=== PATIENT | female | born 1945 | race Caucasian/White ===

== ENCOUNTER 2023-12-26 19:25 | Inpatient (IN) | payer MEDICARE, OTHER, SELFPAY ==
[2023-12-26] VITALS (10 sets, daily range): BP systolic 127–152; BP diastolic 50–68; BMI 42.6
[2023-12-26 15:17] LABS: % Basophils 0.1 % (0-2); % Immature Granulocytes 0.7 % (0-0.5); % Lymphocytes 3.6 % (20.5-51.1); % Monocytes 4.8 % (1.7-9.3); % Neutrophils 90.8 % (42.2-75.2); Absolute Immature Granulocytes 0.1 10^3/uL (0-0.05); Absolute Lymphocytes 0.5 10^3/uL (1.2-3.4); Absolute Monocytes 0.7 10^3/uL (0.1-0.6); Absolute Neutrophils 12.4 10^3/uL (1.4-6.5); Hemoglobin 10.7 g/dL (12.0-16.0); Mean Corp Hgb Conc. 31.5 g/dL (33.0-37.0); Mean Corpuscular Volume 82.5 fL (81.0-99.0); Nucleated Red Blood Cells % 0.1 %; Platelet Count 365 10^3/uL (130-400); Red Blood Cell Count 4.12 10^6/uL (4.20-5.40); Red Cell Dist. Width 15.8 % (11.5-14.5); White Blood Cell Count 13.7 10^3/uL (4.8-10.8)
[2023-12-26 15:34] LABS: ALT (SGPT) 39 U/L (0-35); AST (SGOT) 33 U/L (14-36); Albumin 4.4 g/dl (3.5-5.0); Alkaline Phosphatase 126 U/L (38-126); Blood Urea Nitrogen 81 mg/dl (7-17); Calcium 9.5 mg/dl (8.4-10.2); Carbon Dioxide 31 mmol/L (22-30); Chloride 91 mmol/L (98-107); Estimated Creatinine Clearance 22 ml/min; Glucose 360 mg/dl (70-99); Potassium 5.8 mmol/L (3.5-5.1); Sodium 129 mmol/L (135-145); Total Bilirubin 0.6 mg/dl (0.2-1.3); Total Protein 6.7 g/dl (6.3-8.2); eGFR 22.11
[2023-12-26] MEDS: NOVOLIN R 10 UNITS IV (16:54)
[2023-12-26] MEDS: LOKELMA 10 GRAM PO (16:57)
[2023-12-26] MEDS: DEXTROSE 50% SYRINGE 25 GRAMS IV (16:58)
[2023-12-26] MEDS: LASIX 40 MG IV (17:01)
[2023-12-26] MEDS: VENTOLIN NEBULES 2.5 MG INH (17:19)
[2023-12-26 17:31] LABS: Urine Albumin Negative (Neg - Trace); Urine Bilirubin Negative (Negative); Urine Character Clear (Clear); Urine Color Yellow; Urine Glucose 1+ (Negative); Urine Ketone Negative (Negative); Urine Leukocyte Negative (Negative); Urine Nitrite Negative (Negative); Urine Occult Blood Negative (Negative); Urine Specific Gravity 1.015 (<1.030); Urine Urobilinogen Negative (Neg - 1+)
[2023-12-26 17:51] LABS: Troponin I 0.028 ng/ml
--- NOTE | 2023-12-26 18:09 | ED.GENMED ---
History of Present Illness
General
Chief Complaint: Abnormal Lab Value
Source: patient, ambulance crew and [facility]
Exam Limitations: none
Time Seen by Provider: 12/26/23 15:02
Nursing documentation reviewed up to this point in time: agreed with
Travel History
Have you had any contact with someone who has COVID-19?: No
Do you have any symptoms of coronavirus? Fever > 100 degrees, chills, cough, shortness of breath, sore throat, loss of taste or smell, muscle aches, or headache?: No
History of Present Illness
History of Present Illness:
78-year-old female presenting from [facility] with past medical history of dementia stroke CHF CAD hypertension renal disease presenting to the emergency department today with concerns of abnormal labs as an outpatient. She was
found to have a potassium of 6.2 BNP of 10,000 and creatinine level of 2.2. Sugar level additionally elevated with sodium level 130. She claims that she is felt very fatigued and tired but denies any specific chest pain nausea vomiting diarrhea
numbness or weakness. Denies any pain.
Past History
Past History
ED Past Medical History: CAD, CHF, CVA, HTN, Hypercholesterolemia, IDDM, Psychiatric (Anxiety, depression) and Other (Dementia, Covid 15 Apr 2020, intellectual disability)
ED Past Surgical History: Cardiac
Social History
Tobacco: Non-smoker
Alcohol: None
Drug: None
Living: [facility]
Employment: Retired
Family History
Family History: Other (Reviewed and Noncontributory)
Review of Systems
Review of Systems
Allergies reviewed?: Yes
All Other Systems: ROS reviewed and negative except as documented in HPI and ROS
Phy Exam
Physical Exam
Physical Exam:
GENERAL: Alert , in no apparent distress
EYE: pupils equal and reactive
NECK: Supple, no significant adenopathy.
ENT: o/p clr, mmm.
CARDIAC: Regular rate and rhythm .
LUNGS: Clear breath sounds bilaterally, no acute respiratory distress, no wheezes/rales/rhonchi
ABDOMEN: Soft, without focal tenderness, no r/g, no cvat
NEUROLOGICAL: Alert and oriented, no focal neuro deficits
SKIN: Warm and dry, skin intact.
MUSCULOSKELETAL: No edema, well perfused.
PSYCH: Normal and appropriate interaction.
Course
Orders/Labs/Results
Orders:
Orders
12/26/23 14:51
Complete Blood Count/With Diff Urgent
Comprehensive Metabolic Panel Urgent
Magnesium Urgent
Comment: ADD ON
12/26/23 15:34
EKG [Electrocardiogram (*1)] Urgent
Reason for Study: Fatigue / Weakness
EKG- Treatment ONCE
12/26/23 16:02
Add On- LAB Urgent
Tests Added?: Magnesium
12/26/23 16:35
Chest X-ray Portable [CR Chest Portable - 1 View] Urgent
Comment:
Reason For Exam: sob
Reason Study Needs to be Portable: Patient Unstable
12/26/23 16:39
Albuterol Nebs [Ventolin Nebules] 2.5 mg INH R NOW STA
Dextrose 50%-Water [Dextrose 50% Syringe] 25 grams IV NOW STA
Insulin Human Regular [Novolin R] 10 units IV NOW STA
Sodium Zirconium Cyclosilicate [Lokelma] 10 gram PO NOW STA
Peak Flow Rate [RESP] Urgent
Quantity: 1
Pre-Bronchodilator: Yes
Post Bronchodilator: Yes
Special Instructions: Pre and Post Peak Flow before and after Bronchodilator
12/26/23 16:41
Furosemide [Lasix] 40 mg IV NOW STA
12/26/23 17:18
Troponin I Urgent
Urinalysis Reflex To Culture Urgent
Date Specimen was Collected: 12/26/23
Time Specimen was Collected: 16:46
Comment: straight cath
12/26/23 18:12
Bedside Glucose- Treatment ONCE
12/26/23 18:38
COVID-19 Antigen Urgent
Source: Nasal Swab
Influenza A+B Rapid Molecular Urgent
INES Source: Nasal Swab
Specimen Description:
12/26/23 18:48
Add On- LAB Urgent
Tests Added?: tsh with free t4
Consult Nephrology [NEPHROLOGY CONSULT] Routine
Consulting Provider: Christopher Levi
Was physician already notified: Yes
Reason for consult: acute on chronic chf clint ckd 4
12/26/23 21:00
BMP [Basic Metabolic Panel] Urgent
12/26/23 22:00
BMP [Basic Metabolic Panel] Urgent
12/27/23 08:00
Furosemide [Lasix] 80 mg IV BID AT 0800,1600
Abnormal Lab Results
12/26/23 12/26/23 12/26/23
14:51 17:18 18:20
WBC 13.7 H 10^3/uL
(4.8-10.8)
RBC 4.12 L 10^6/uL
(4.20-5.40)
Hgb 10.7 L g/dL
(12.0-16.0)
Hct 34.0 L %
(37.0-47.0)
MCH 26.0 L pg
(27.0-31.0)
MCHC 31.5 L g/dL
(33.0-37.0)
RDW 15.8 H %
(11.5-14.5)
MPV 11.0 H fL
(7.4-10.4)
Abs Immat Gran (auto) 0.1 H 10^3/uL
(0-0.05)
Absolute Neuts (auto) 12.4 H 10^3/uL
(1.4-6.5)
Absolute Lymphs (auto) 0.5 L 10^3/uL
(1.2-3.4)
Absolute Monos (auto) 0.7 H 10^3/uL
(0.1-0.6)
Immature Gran % 0.7 H %
(0-0.5)
Neutrophils % 90.8 H %
(42.2-75.2)
Lymphocytes % 3.6 L %
(20.5-51.1)
Sodium 129 L mmol/L
(135-145)
Potassium 5.8 H mmol/L
(3.5-5.1)
Chloride 91 L mmol/L
(98-107)
Carbon Dioxide 31 H mmol/L
(22-30)
BUN 81 H mg/dl
(7-17)
Creatinine 2.2 H mg/dL
(0.6-1.0)
Glucose 360 H mg/dl
(70-99)
ALT 39 H U/L
(0-35)
Urine Glucose 1+ A
(Negative)
POC Glucose 333 H mg/dl
(70-99)
12/26/23 14:51
Vital Signs
Initial and Last Documented VS:
Initial Vital Signs
BP
152/62
12/26/23 14:21
Last Documented Vital Signs
Temp Pulse Resp BP Pulse Ox
98.0 F 72 27 143/68 97
12/26/23 14:28 12/26/23 18:45 12/26/23 18:45 12/26/23 18:00 12/26/23 18:45
MDM/Problems Addressed
MDM/Problems Addressed:
78-year-old female presenting to the emergency department today with concerns of abnormal labs as an outpatient. These were performed because she was feeling very tired and weak. She was found to have elevated potassium of 6.2 BNP of 10,000
creatinine 2.2 all above her baseline. Arrival here she claims that she feels continually fatigued is a fully alert and oriented. She claims that she would like full treatment for these ailments though she does have a POLST that has comfort
measures listed. This was explained to the patient she claims that she would like full treatment of the described findings. Vital signs normal throughout ER stay. Was initially given temporizing medications due to the initial potassium level of
6.2 repeated level was 5.8 did have Lasix on board as well as Lokelma. Will be admitted for further monitoring and treatment.
*Critical Care Note
Total Time (30-74mins, 75-104mins- exclusive of procedures): Not Applicable
ED Attending Note
-
Portions of this chart may have been created with voice recognition software.� Occasional wrong word or��sound alike� substitutions may have occurred due to the inherent limitations of voice recognition software.
Discharge Plan
Departure
Patient Disposition: Admit
Date of Disposition: 12/26/23
Time of Disposition: 18:52
Admit to: Med/Surg
Admit to doctor: Colten
Presentation/result/management discussed w/ accepting MD/DO: Hospitalist
Patient with high blood pressure during this ER visit?: No
Condition: Good
Covid-19: Not Applicable
Discharge Problem:
Acute hyperkalemia, Heart failure, Acute hyperglycemia, Fatigue
Prescriptions:
No Action
Artificial Tears (PF) 1 EACH dropperette
1 drp BOTH EYES Q8HPRN PRN (Reason: dry eyes)
lidocaine 4 % Adhesive Patch,Medicated
1 patch TOPICAL DAILY
Rx Instructions:
apply to lower back
magnesium hydroxide [Milk of Magnesia] 400 mg/5 mL Suspension
30 ml PO HSPRN PRN (Reason: if no bm x 2 days)
bisacodyl [Dulcolax (bisacodyl)] 10 mg Suppository
10 mg MO [id number] PRN (Reason: if no bm by 3rd day)
Fleet Enema 19-7 gram/118 mL Enema
118 ml MO DAILYPRN PRN (Reason: if no bm x 4 days)
insulin lispro [Humalog KwikPen Insulin] 100 unit/mL Insulin Pen
8 sliding scale dose SC AC
Patient Comments:
BG 150-199 = 0; 200-249= 2; 250-299= 4; 300-349= 6; 350-400= 8; >400 call MD
insulin glargine [Lantus Solostar U-100 Insulin] 100 unit/mL (3 mL) Insulin Pen
30 unit SC HS
clonazepam 0.5 MG tablet
0.5 mg PO BID
atorvastatin 40 mg Tablet
40 mg PO HS
sennosides [senna] 8.6 mg Tablet
8.6 mg PO BID
aspirin 81 mg Tablet,Delayed Release (Dr/Ec)
81 mg PO DAILY
amlodipine 10 mg Tablet
10 mg PO DAILY
docusate sodium 100 mg Capsule
100 mg PO BID
sertraline 25 mg Tablet
25 mg PO DAILY
cholecalciferol (vitamin D3) [Vitamin D3] 25 mcg (1,000 unit) Tablet
25 mcg PO DAILY
dextromethorphan-guaifenesin 10-100 mg/5 mL syrup
10 ml PO Q4HPRN PRN (Reason: cough)
famotidine [Acid Controller] 20 MG tablet
20 mg PO HS
acetaminophen [Tylenol] 325 MG capsule
650 mg PO Q6HPRN PRN (Reason: mild pain/fever >100)
menthol Gel
1 applic TOPICAL HS
allopurinol 300 MG tablet
300 mg PO DAILY
potassium chloride 20 mEq Tablet,Er Particles/Crystals
20 meq PO BID Qty: 60 0RF
amoxicillin-pot clavulanate [Augmentin] 500-125 mg tablet
1 tab PO BID Qty: 5 0RF
Patient Comments:
patient to take from 12/23/23-12/28/23
prednisone 20 mg Tablet
20 mg PO BID
Rx Instructions:
for 10 days from 12/23/23-01/02/24
Metamucil Packet
1 packet PO DAILY
furosemide 80 mg tablet
120 mg PO BID@0800,1600
Referrals:
Samir River MD [Family Provider] -
Interventions
Interventions:
*Risk Screen - Suicide Last Done: 12/26/23 14:28
*General Assessment Last Done: 12/26/23 14:28
*Neglect/Abuse Screening Last Done: 12/26/23 14:28
ED- Fall Risk Assessment Last Done: 12/26/23 14:38
*ED COVID-19 Vaccine History Last Done: 12/26/23 14:28
[2023-12-26 18:22] LABS: Glucose - Point of Care 333 mg/dl (70-99)
--- NOTE | 2023-12-26 18:25 | W.PN.UPDATE ---
Update Note
Progress Note Update
Patient seen and examined at bedside, please see SADDLE [facility]KER/PA H&P for further details. This note serves as addendum
78-year-old female with history of recurrent hospital admissions for acute hypoxic respiratory failure, recent hospitalization for pneumonia, most likely aspiration requiring PEG tube at that time, dementia, stroke, CHF, CAD, hypertension, renal
disease, now presents from [facility] with concerns of abnormal labs as outpatient. Patient had felt she was very weak, fatigued and therefore labs were performed. Found to have potassium of 6.2, BNP of 10,000, creatinine of 2.2.
Noted to have leukocytosis here 13.7, sodium 129 baseline approximately 130s), bicarb 31, creatinine 2.2 (1.5-1.7 in the past), hyperglycemic, UA negative. X-ray positive for moderate positional pulmonary edema. 93% on 2 L. Provided Lokelma, IV
Lasix in the ED.
#AMADO
# Most likely cardiorenal
� 80 mg IV Lasix twice daily
� Renal consulted
� Follow-up bladder scan for retention
� Monitor urine output
�Patient would like medical treatment options at this time, does have a POLST that has comfort measures listed
#Hyperkalemia
� Most likely secondary to AMADO
� Lokelma given
� No EKG changes
� Continue monitoring with IV diuresis
� BMP this evening at approximately 10 PM and treat accordingly
# Acute on chronic� hypoxic respiratory failure likely from acute on chronic HFpEF
� Switch to 80 mg IV Lasix twice daily
� Nephrology consulted
-Wean as tolerated
�Follow-up COVID
-Strict I&O
-Daily weight
-Fluid restriction
-Cardiology consulted
�Trend troponins
# Anemia of chronic disease
-No active bleeding
-Continue to monitor
# Severe symptomatic bradycardia
-EKG with impression of SINUS RHYTHM WITH 2ND DEGREE A-V BLOCK WITH 2:1 A-V CONDUCTION
�Dual-chamber pacemaker implantation 11/15
#CAD s/p prior CABG
-aspirin, statin continued
#Essential hypertension
-continue Norvasc, Lasix, avoid hypotension
�Hold all nephrotoxic agents
#Diabetes mellitus type 2 on insulin
-Continue home regimen
-sliding scale
-CHO diet
#HLD
-statin continued
#anxiety
-clonazepam continued
-Sertraline
#GOUT
-allopurinol, colchicine continued
#GERD
_PPI continued
#History of CVA in the past and dysphagia
-peg tube removed
- She is on a pur�ed ,and thin liquid diet at snf
# DVT prophylaxis
-Heparin subcu
# CODE STATUS
-Full code
--- NOTE | 2023-12-26 18:27 | HPS.HSE ---
Addendum entered and electronically signed by Richie Sabillon MD 12/26/23 18:48:
see previous update note
Original Note:
Family Physician
-
Family Physician: Samir River MD
Chief Complaint
-
Shortness of breath, cough, diarrhea
History of Present Illness
78-year-old female from [facility] complaining of shortness of breath, cough white to yellow in color and diarrhea today. She states she has been on 2 L of nasal cannula since going home from hospital on . She denies
fever, chills, chest pain, palpitations, abdominal pain, nausea, vomiting, urinary symptoms.
The patient was treated for heart failure exacerbation, heart block along with aspiration pneumonia November 15 - November 22, 2023 had permanent pacemaker placed had speech therapist recommendation of dysphagia grade 1 diet pur�ed patient did
receive a permanent pacemaker on November [address] Shah. She is past medical history of dementia�mild, DM2, HTN, HLD, CAD/CABG, heart block status post permanent pacemaker November 15, 2023, chronic heart failure preserved EF, CKD 3B�4,
dysphagia/aspiration PNA, CVA 2008, gout, GERD, anxiety
Medical History
Past Medical History
Past Medical History: Reports Other
Additional Past Medical History:
CAD
CHF
CVA (2008),
GERD,
HTN,
Hypercholesterolemia,
IDDM,
Renal Failure (CKD 3)
Anxiety/depression
Obesity
Aspiration PNA October 2023 recommended pur�ed diet
Past Surgical History: Reports Other
Additional Past Surgical History:
Pacemaker November 15, 2023 secondary to heart block
CABG
Social History
Tobacco: Non-smoker
Alcohol: None
Drug: None
Personal: Single
Living: Snf
Family History
Family History: Not pertinent
Allergies / Home Medications
Allergies reflects when Allergies were last updated in [facility].
Home Medications with original date entered in [facility]
Allergy/Medication List:
Allergies
Allergy/AdvReac Type Severity Reaction Status Date / Time
adhesive Allergy BANDAIDS-REDNESS Verified 12/26/23 14:38
AND RASH
hydromorphone [From Dilaudid] Allergy CONFUSION Verified 12/26/23 14:38
Home Medications
dextran 70-hypromellose eye drops in a dropperette (Artificial Tears (PF) drops in a dropperette) 1 drp BOTH EYES Q8HPRN PRN dry eyes 08/16/21
lidocaine 4 % topical patch 1 patch topical DAILY lower back Pain 08/26/23
bisacodyl 10 mg rectal suppository (Dulcolax (bisacodyl)) 10 mg MN [id number] PRN if no bm by 3rd day 09/09/23
clonazepam 0.5 mg tablet 0.5 mg PO BID Mental Health/Anxiety 09/09/23
insulin glargine 100 unit/mL (3 mL) subcutaneous pen (Lantus Solostar U-100 Insulin) 30 unit SC HS Diabetes 09/09/23
insulin lispro 100 unit/mL subcutaneous pen (Humalog KwikPen (U-100) Insulin) 8 sliding scale dose SC AC Diabetes 09/09/23
magnesium hydroxide 400 mg/5 mL oral suspension (Milk of Magnesia) 30 ml PO HSPRN PRN if no bm x 2 days 09/09/23
sodium phosphates 19 gram-7 gram/118 mL enema (Fleet Enema) 118 ml MN DAILYPRN PRN if no bm x 4 days 09/09/23
acetaminophen 325 mg capsule (Tylenol) 650 mg PO Q6HPRN PRN mild pain/fever >100 10/12/23
amlodipine 10 mg tablet 10 mg PO DAILY Blood Pressure 10/12/23
aspirin 81 mg tablet,delayed release 81 mg PO DAILY Blood Clot Prevention/Tx 10/12/23
atorvastatin 40 mg tablet 40 mg PO HS High Cholesterol 10/12/23
cholecalciferol (vitamin D3) 25 mcg (1,000 unit) tablet (Vitamin D3) 25 mcg PO DAILY Supplement 10/12/23
dextromethorphan-guaifenesin 10 mg-100 mg/5 mL oral syrup 10 ml PO Q4HPRN PRN cough 10/12/23
docusate sodium 100 mg capsule 100 mg PO BID Constipation 10/12/23
famotidine 20 mg tablet (Acid Controller) 20 mg PO HS Gastrointestinal Issue 10/12/23
sennosides 8.6 mg tablet (senna) 8.6 mg PO BID Constipation 10/12/23
sertraline 25 mg tablet 25 mg PO DAILY Mental Health/Anxiety 10/12/23
allopurinol 300 mg tablet 300 mg PO DAILY Gout 11/15/23
menthol 1 applic topical HS bilateral shoulder pain 11/15/23
amoxicillin 500 mg-potassium clavulanate 125 mg tablet (Augmentin) 1 tab PO BID #5 tabs 11/22/23
potassium chloride 20 mEq tablet,extended release(part/cryst) 20 meq PO BID #60 tabs 11/22/23
furosemide 80 mg tablet 120 mg PO BID@0800,1600 12/26/23
prednisone 20 mg tablet 20 mg PO BID 12/26/23
psyllium 1 packet PO DAILY 12/26/23
Review of Systems
-
History Source: Patient
A 12 point ROS was completed and negative except as noted: Yes
Constitutional: Reports Weight Gain (26 pounds in 1 month); Denies Fever or Chills
EENT: Denies Sore Throat or Runny Nose
Respiratory: Reports Cough and Trouble Breathing (Shortness of breath)
Cardiac: Denies Chest Pain, Diaphoresis, Palpitations or Syncope
Abdomen/GI: Reports Diarrhea; Denies Abdominal Pain, Nausea, Vomiting, Constipated or Bloody Stools
: Denies Dysuria, Frequency, Flank Pain or Incontinence
Musculoskeletal: Reports Edema (+2 nonpitting); Denies Joint Pain
Skin: Denies Itching or Rash
Neurological: Denies Dizzy, Headache or Weakness
Hematologic/Lymphatic: Reports No Symptoms
Psych: Reports Calm
Physical Exam
Vital Signs
Vital Signs
Temp Pulse Resp BP Pulse Ox
98.0 F 67 25 128/50 93
12/26/23 14:28 12/26/23 17:01 12/26/23 15:00 12/26/23 17:01 12/26/23 15:00
Physical Exam
General: Comfortable, Conversant and Obese; No Pain or Chills
HEENT: NormoCephalic, Anicteric, Moist mucous membranes, PERRLA, [place] Conjunctivae, No Ptosis and Oxygen (2 L NC)
Respiratory: Wheezes (With poor inspiratory effort); No Rales or Rhonchi
Cardiac: S1/S2, Regular Rhythm, Peripheral Edema (Chronic +2 nonpitting) and JVD; No Murmur, Rub or Gallop
Breast: Deferred by me
GI: Soft, Non Tender, Non Distended, Normal Bowel Sounds and No Hepatosplenomegaly
Rectal: Deferred by Provider
Genito-urinary: Deferred by me
Musculoskeletal: No Clubbing, No Cyanosis, Edema, Left Lower Extremity (+2 nonpitting) and Edema, Right Lower Extremity (+2 nonpitting); No Edema, Left Upper Extremity or Edema, Right Upper Extremity
Skin: Warm and Dry; No Rash
Neuro: AO x 3 (To name, place, place of living, year, recent history), Nonfocal/grossly intact, Cranial Nerves Intact and No Sensory Deficits; No Slurred Speech, Facial Droop or Tremors
Psych: Calm
Laboratory Results
-
12/26/23 14:51
12/26/23 14:51
Laboratory Results
Total Bilirubin 0.6 mg/dl (0.2-1.3) 12/26/23 14:51
AST 33 U/L (14-36) 12/26/23 14:51
ALT 39 U/L (0-35) H 12/26/23 14:51
Alkaline Phosphatase 126 U/L (38-126) 12/26/23 14:51
Troponin I 0.028 ng/ml 12/26/23 17:18
Impression/Plan
-
Impression/plan:
Inpatient telemetry
#Acute hypoxic resp insufficiency 2/2 acute on chronic CHF preserved EF
#Chronic hypoxic respiratory insufficiency on chronic 2 L nasal cannula
WT 102.2 kg > 89.2kg 11/22/2023 =13kg/28.6lbs 1 month
BNP 10,500
I/O, daily weights
ETL MANAGER 120 mg Lasix twice daily
Iv Lasix 80 mg bid
- consult Cardiology
2D echo 08/29/2023: EF 60 to 65%, normal LVS LVSF, no wall normality, stage II diastolic dysfunction. Moderate mitral stenosis. Mild to moderate MR. Moderate TR. Mild elevated PASP pulm pressure 44 mmHg
#Acute leukocytosis unclear etiology
WBC 13.7 with left shift, afebrile, normotensive 128/50
Check COVID and influenza swab
-Patient on chronic prednisone unclear
CXR: Moderate interstitial pulmonary edema
#Acute hyperkalemia
K5.8 was 6.2 this a.m.
Patient given Lokelma
-Follow BMP
#Hyponatremia in setting of hyperglycemia/ volume overload
NA 129
follow bmp
#DM2 with hyperglycemia
-BS 360
=Accu-Cheks with SSI, check HgbA1c
#AMADO on CKD 3B�4
Creat 2.2 was 1.7 12/23/2023
-Follow BMP with IV diuresis
- consult nephro
- pure wick
#Hx complete heart block status post pacemaker November 15, [address] Shah
#Hx aspiration PNA
Had speech therapy eval October 2023 recommended grade 1 dysphagia/pur�ed diet
#Dementia Hx mild
oriented to name place year history
#HTN�benign
Continue amlodipine 10 mg daily
#HLD
-Continue statin 40 mg daily,
#CAD/CABG
-aspirin, statin
#GERD
-Continue Pepcid
#Gout
-Continue allopurinol
#CVA 2008
#Anxiety
-Continue Zoloft, clonazepam
#Obesity due to excess calorie consumption�BMI 42.6 EKG
Pur�ed, healthy heart diet weight loss recommended
DVT prophylaxis
Subcu heparin
DNR
[2023-12-26 19:38] LABS: TSH Reflex To Free T4 1.12 uIU/ml (0.47-4.68)
[2023-12-26 19:43] LABS: COVID-19 Antigen Negative (Negative)
[2023-12-26 21:27] LABS: Glucose - Point of Care 327 mg/dl (70-99)
[2023-12-26] MEDS: LANTUS 0.299999999999999989 UNITS SC (21:33)
[2023-12-26] MEDS: KLONOPIN 0.5 MG PO (21:34)
[2023-12-26] MEDS: LIPITOR 40 MG PO (21:34)
[2023-12-26] MEDS: SENOKOT 8.59999999999999964 MG PO (21:34)
[2023-12-26] MEDS: HEPARIN 5000 UNITS SC (21:34)
[2023-12-26] MEDS: DELTASONE 20 MG PO (21:34)
[2023-12-26] MEDS: COLACE 100 MG PO (21:34)
[2023-12-26] MEDS: PEPCID 20 MG PO (21:34)
--- NOTE | 2023-12-26 22:09 | PTCARENOTE ---
Pt came up from ED via stretcher. Pt unable to get up and walk, pulled over from stretcher to bed. Vitals obtained and stable, pt on TELE monitoring, AAOX3, able to make needs known. Oriented to room, call zapien within reach. Will continue to
monitor.
[2023-12-26 22:30] LABS: Blood Urea Nitrogen 89 mg/dl (7-17); Calcium 9.5 mg/dl (8.4-10.2); Carbon Dioxide 32 mmol/L (22-30); Chloride 90 mmol/L (98-107); Estimated Creatinine Clearance 23 ml/min; Glucose 326 mg/dl (70-99); Potassium 4.5 mmol/L (3.5-5.1); Sodium 131 mmol/L (135-145); eGFR 23.38
[2023-12-27] VITALS (8 sets, daily range): BP systolic 105–148; BP diastolic 58–73; PULSE 64–68; O2SAT 94; BMI 40.3
[2023-12-27 05:50] LABS: % Basophils 0.1 % (0-2); % Immature Granulocytes 0.7 % (0-0.5); % Lymphocytes 4.7 % (20.5-51.1); % Monocytes 3.1 % (1.7-9.3); % Neutrophils 91.4 % (42.2-75.2); Absolute Immature Granulocytes 0.1 10^3/uL (0-0.05); Absolute Lymphocytes 0.5 10^3/uL (1.2-3.4); Absolute Monocytes 0.3 10^3/uL (0.1-0.6); Absolute Neutrophils 9.8 10^3/uL (1.4-6.5); Hematocrit 36.4 % (37.0-47.0); Mean Corp Hgb Conc. 30.2 g/dL (33.0-37.0); Mean Corpuscular Hgb 25.7 pg (27.0-31.0); Mean Platelet Volume 10.7 fL (7.4-10.4); Nucleated Red Blood Cells % 0 %; Platelet Count 343 10^3/uL (130-400); Red Blood Cell Count 4.28 10^6/uL (4.20-5.40); Red Cell Dist. Width 15.8 % (11.5-14.5); White Blood Cell Count 10.8 10^3/uL (4.8-10.8)
[2023-12-27 07:08] LABS: Blood Urea Nitrogen 84 mg/dl (7-17); Calcium 9.6 mg/dl (8.4-10.2); Carbon Dioxide 31 mmol/L (22-30); Chloride 90 mmol/L (98-107); Estimated Creatinine Clearance 23 ml/min; Glucose 323 mg/dl (70-99); Potassium 5.2 mmol/L (3.5-5.1); Sodium 133 mmol/L (135-145); eGFR 23.38
[2023-12-27] MEDS: COLACE 100 MG PO ×2 (09:11→20:45)
[2023-12-27] MEDS: KLONOPIN 0.5 MG PO ×2 (09:11→20:45)
[2023-12-27] MEDS: VITAMIN D3 (cholecalciferol) 25 MCG PO (09:11)
[2023-12-27] MEDS: ASPIR LOW (ENTERIC COATED) 81 MG PO (09:11)
[2023-12-27] MEDS: HEPARIN 5000 UNITS SC ×2 (09:12→20:45)
[2023-12-27] MEDS: SENOKOT 8.59999999999999964 MG PO ×2 (09:12→20:45)
[2023-12-27] MEDS: ZOLOFT 25 MG PO (09:12)
[2023-12-27] MEDS: METAMUCIL, KONSYL 1 PACKET PO (09:14)
[2023-12-27] MEDS: LASIX 80 MG IV ×2 (09:14→16:10)
[2023-12-27] MEDS: LIDOCAINE 4% PATCH 1 PATCH TOPICAL (09:16)
[2023-12-27] MEDS: ZYLOPRIM 300 MG PO (09:17)
[2023-12-27] MEDS: DELTASONE PO (09:38)
[2023-12-27] MEDS: DELTASONE 10 MG PO ×2 (09:45→20:46)
[2023-12-27] MEDS: NORVASC 10 MG PO (09:55)
--- NOTE | 2023-12-27 10:57 | CON.CAR ---
Addendum entered and electronically signed by Chrsi Guzman MD 12/27/23 12:53:
Patient seen and examined in collaboration with GIZZARD PEELER; agree with below.
-78-year-old male with cardiac/medical history as outlined below; Cardiology consulted for acute on chronic HFpEF.
-Recommend diuresing with Lasix 80 mg IV twice daily for now; monitor volume status.
-Nephrology consulted; monitor renal function.
-Will follow.
Original Note:
Consultation
Consultation Request
Date/Time Consultation Requested: 12/26/23 19:00
Date/Time Consultation Performed: 12/27/23 10:30
Requesting Provider: NATANAEL Patel
Performing Provider: NATANAEL Silva for Dr. Guzman
Reason for Consultation: Shortness of breath
Medical History
-
Chief Complaint: Shortness of breath
History of Present Illness:
Rachel Tuttle is an 78-year-old female (known to Dr. Lau, her primary tin flopper), with cognitive impairment, type 2 diabetes mellitus requiring insulin, dyslipidemia, multivessel CAD status post CABG, heart block requiring PPM, HFpEF, and
prior CVA who presented to the emergency department with a chief complaint of shortness of breath. Initially, she was referred by her nursing facility due to abnormal labs, specifically hyperkalemia (6.2). She was found to be in acute on chronic
HFpEF. She has had a significant weight gain. The patient reports she has consuming more fluid than usual. She states she is adherent with all medication provided by the nursing staff.
Past Medical History
Past Medical History: Arrhythmias (Heart block S/p PPM), CAD, CHF, CVA, GERD, HTN, Hypercholesterolemia, NIDDM and Psychiatric (Cognitive impairment)
Past Surgical History: Cardiac
Social History
Tobacco: Non-Smoker
Alcohol: None
Drug: None
Personal:
Living: Prison
Employment: Retired
Family History
Family History: Reviewed & Not Pertinent
Allergies / Home Medications
Allergy/AdvReac Type Severity Reaction Status Date / Time
adhesive Allergy BANDAIDS-REDNESS Verified 12/26/23 14:38
AND RASH
hydromorphone [From Dilaudid] Allergy CONFUSION Verified 12/26/23 14:38
Medication Instructions Recorded Confirmed Type
dextran 70-hypromellose eye drops 1 drp BOTH EYES Q8HPRN PRN dry eyes 08/16/21 12/26/23 History
in a dropperette (Artificial Tears
(PF) drops in a dropperette)
lidocaine 4 % topical patch 1 patch topical DAILY lower back 08/26/23 12/26/23 History
Pain
bisacodyl 10 mg rectal suppository 10 mg VT [id number] PRN if no bm by 09/09/23 12/26/23 History
(Dulcolax (bisacodyl)) 3rd day
clonazepam 0.5 mg tablet 0.5 mg PO BID Mental Health/Anxiety 09/09/23 12/26/23 History
insulin glargine 100 unit/mL (3 30 unit SC HS Diabetes 09/09/23 12/26/23 History
mL) subcutaneous pen (Lantus
Solostar U-100 Insulin)
insulin lispro 100 unit/mL 8 sliding scale dose SC AC Diabetes 09/09/23 12/26/23 History
subcutaneous pen (Humalog KwikPen
(U-100) Insulin)
magnesium hydroxide 400 mg/5 mL 30 ml PO HSPRN PRN if no bm x 2 09/09/23 12/26/23 History
oral suspension (Milk of Magnesia) days
sodium phosphates 19 gram-7 118 ml VT DAILYPRN PRN if no bm x 09/09/23 12/26/23 History
gram/118 mL enema (Fleet Enema) 4 days
acetaminophen 325 mg capsule 650 mg PO Q6HPRN PRN mild 10/12/23 12/26/23 History
(Tylenol) pain/fever >100
amlodipine 10 mg tablet 10 mg PO DAILY Blood Pressure 10/12/23 12/26/23 History
aspirin 81 mg tablet,delayed 81 mg PO DAILY Blood Clot 10/12/23 12/26/23 History
release Prevention/Tx
atorvastatin 40 mg tablet 40 mg PO HS High Cholesterol 10/12/23 12/26/23 History
cholecalciferol (vitamin D3) 25 25 mcg PO DAILY Supplement 10/12/23 12/26/23 History
mcg (1,000 unit) tablet (Vitamin
D3)
dextromethorphan-guaifenesin 10 10 ml PO Q4HPRN PRN cough 10/12/23 12/26/23 History
mg-100 mg/5 mL oral syrup
docusate sodium 100 mg capsule 100 mg PO BID Constipation 10/12/23 12/26/23 History
famotidine 20 mg tablet (Acid 20 mg PO HS Gastrointestinal Issue 10/12/23 12/26/23 History
Controller)
sennosides 8.6 mg tablet (senna) 8.6 mg PO BID Constipation 10/12/23 12/26/23 History
sertraline 25 mg tablet 25 mg PO DAILY Depression 10/12/23 12/26/23 History
allopurinol 300 mg tablet 300 mg PO DAILY Gout 11/15/23 12/26/23 History
menthol 1 applic topical HS bilateral 11/15/23 12/26/23 History
shoulder pain
potassium chloride 20 mEq 20 meq PO BID #60 tabs 11/22/23 12/26/23 Rx
tablet,extended release(part/cryst)
furosemide 80 mg tablet 120 mg PO BID@0800,1600 Fluid 12/26/23 12/26/23 History
Retention/Swelling
prednisone 20 mg tablet 20 mg PO BID Anti-Inflammatory 12/26/23 12/26/23 History
psyllium 1 packet PO DAILY Constipation 12/26/23 12/26/23 History
amoxicillin 500 mg-potassium 1 tab PO BID Infection 12/27/23 12/26/23 History
clavulanate 125 mg tablet
(Augmentin)
Review of Systems
-
History Source: Patient
All other systems: Negative unless noted
Constitutional: Weight Gain and Fatigue
Cardiac: No Symptoms
Musculoskeletal: Edema
Physical Exam
Vital Signs
Temp Pulse Resp BP Pulse Ox
97.6 F 72 20 138/72 100
12/27/23 07:32 12/27/23 07:32 12/27/23 07:32 12/27/23 07:32 12/27/23 07:32
Lab Results
12/27/23 05:40
12/27/23 05:40
Troponin I 0.028 ng/ml 12/26/23 17:18
Physical Exam
General: Well Developed, Well Nourished, No Apparent Distress and Comfortable
HEENT: Normocephalic and Anicteric
Respiratory: Clear, Non Labored Respirations and Other (Poor inspiratory effort)
Cardiac: S1/S2, Regular Rhythm and Peripheral Edema
Breast: Deferred by me
GI: Soft, Non Tender, Non Distended and Normal Bowel Sounds
Rectal: Deferred by Provider
Genito-urinary: No Costovertebral Tender
Musculoskeletal: No Clubbing and No Cyanosis
Skin: Warm and Dry
Neuro: AO x 3
Hematologic/Lymphatic: No Lymphadenopathy
Psych: Calm
Impression / Plan
-
Acute on chronic HFpEF - acute on chronic.
- Clearly volume overloaded on exam
- She was discharged last month on 80 mg orally twice daily
- Dry weight appears to be ~90kg if renal function allows
- Diuresis per Nephrology
- Heart failure education provided, I specifically reviewed fluid restriction
AMADO on CKD3b, Nephrology following
Hypervolemic hyponatremia
Hyperkalemia, improved s/p Lokelma, per primary
Complete heart block s/p Medtronic PPM 11/15/2023, stable, followed in outpatient device clinic
CAD s/p CABG - stable w/o chest pain, continue ASA, statin
Prior CVA
Type 2 diabetes mellitus, with hyperglycemia, HgbA1c 8.0%
Data Reviewed
-
EKG: Report Reviewed by me (Atrial sensed ventricular paced rhythm, rate 67)
Radiology: Report Reviewed by me (CXR: Moderate interstitial pulmonary edema.)
Medical Tests (Nuc Med, Echo etc): Report Reviewed by me (Echocardiogram as above)
Labs: Labs Reviewed by me
Old Records: Reviewed
--- NOTE | 2023-12-27 12:05 | PTOTSP ---
Pt is at functional baseline thus PT will sign off.
--- NOTE | 2023-12-27 12:34 | CON.MD ---
Consultation - Medical
-
Assessment
-AMADO
-CKD3b (1.2-1.5)
-HFpEF decompensated
-mod MS/MR/TR
-hyponatremia
-hyperkalemia
-metabolic alkalosis
-PPM/CHB
-DM2
-CAD
-gout/tophi bilateral elbows
Plan
-diurese
-follow K off supplements
-follow BMP, suspect AMADO from decompensated HF with bland urine
-check uric acid
-[id number]
[2023-12-27] MEDS: NOVOLOG FLEXPEN 8 UNITS SC ×2 (13:10→16:13)
[2023-12-27] MEDS: NOVOLOG FLEXPEN-LOW RESISTANCE 4 UNITS SC (13:10)
[2023-12-27 13:11] LABS: Glucose - Point of Care 335 mg/dl (70-99)
--- NOTE | 2023-12-27 13:46 | W.PN.HOSP.TC ---
Today's Communication/Plan
-
IV Lasix 80 mg twice daily
Monitor urine output
Wean O2
Assessment / Plan
Assessment / Plan
General: Comfortable, Conversant and Obese; No Pain or Chills
HEENT: NormoCephalic, Anicteric, Moist mucous membranes, PERRLA, [place] Conjunctivae, No Ptosis and Oxygen (2 L NC)
Respiratory: Wheezes (With poor inspiratory effort); No Rales or Rhonchi
Cardiac: S1/S2, Regular Rhythm, Peripheral Edema (Chronic +2 nonpitting) and JVD; No Murmur, Rub or Gallop
Breast: Deferred by me
GI: Soft, Non Tender, Non Distended, Normal Bowel Sounds and No Hepatosplenomegaly
Rectal: Deferred by Provider
Genito-urinary: Deferred by me
Musculoskeletal: No Clubbing, No Cyanosis, Edema, Left Lower Extremity (+2 nonpitting) and Edema, Right Lower Extremity (+2 nonpitting); No Edema, Left Upper Extremity or Edema, Right Upper Extremity
Skin: Warm and Dry; No Rash
Neuro: AO x 3 (To name, place, place of living, year, recent history), Nonfocal/grossly intact, Cranial Nerves Intact and No Sensory Deficits; No Slurred Speech, Facial Droop or Tremors
Psych: Calm
#AMADO
# Most likely cardiorenal
� 80 mg IV Lasix twice daily
� Renal consulted
� Follow-up bladder scan for retention
� Monitor urine output
�Patient would like medical treatment options at this time, does have a POLST that has comfort measures listed
#Hyperkalemia
� Most likely secondary to AMADO
� Lokelma given
� No EKG changes
� Continue monitoring with IV diuresis
� BMP f/u
# Acute on chronic� hypoxic respiratory failure likely from acute on chronic HFpEF
� Switch to 80 mg IV Lasix twice daily
� Nephrology consulted
-Wean as tolerated
�Follow-up COVID
-Strict I&O
-Daily weight
-Fluid restriction
-Cardiology consulted
�Trend troponins
#Leukocytosis
-most likely steroids
-monitor with weaning of steroids - unclear why patient is on it but to be dced 2/5 regardless after 10 days as per med rec
#Hyponatremia
2/2 to volume overload
-monitor wth diuresis
# Anemia of chronic disease
-No active bleeding
-Continue to monitor
# Severe symptomatic bradycardia
-EKG with impression of SINUS RHYTHM WITH 2ND DEGREE A-V BLOCK WITH 2:1 A-V CONDUCTION
�Dual-chamber pacemaker implantation 11/15
#CAD s/p prior CABG
-aspirin, statin continued
#Essential hypertension
-continue Norvasc, Lasix, avoid hypotension
�Hold all nephrotoxic agents
#Diabetes mellitus type 2 on insulin
-Continue home regimen
-sliding scale
-CHO diet
#HLD
-statin continued
#anxiety
-clonazepam continued
-Sertraline
#GOUT
-allopurinol, colchicine continued
#GERD
_PPI continued
#History of CVA in the past and dysphagia
-peg tube removed
- She is on a pur�ed ,and thin liquid diet at skilled nursing
# DVT prophylaxis
-Heparin subcu
# CODE STATUS
-Full code
Anticipated Discharge: > 48 hours
Subjective/Interval History
-
Date of Service: December 27, 2023
No acute events overnight
Objective Data
-
Labs:
Laboratory Results
12/27/23
05:40
WBC 10.8
Hgb 11.0 L
Hct 36.4 L
Plt Count 343
Sodium 133 L
Potassium 5.2 H
Chloride 90 L
Carbon Dioxide 31 H
BUN 84 H
Creatinine 2.1 H
Glucose 323 H
Calcium 9.6
Vital Signs:
Vital Signs
Temp Pulse Resp BP Pulse Ox
97.9 F 70 20 148/68 97
12/27/23 11:30 12/27/23 11:30 12/27/23 11:30 12/27/23 11:30 12/27/23 11:30
I&O
12/26/23 12/27/23 12/28/23
06:59 06:59 06:59
Intake Total 0 / 0
Output Total 600 / 600
Balance -600 / -600
Review of Systems
-
History Source: Patient
All other systems: Not reviewed unless documented
Physical Exam
-
General: No Apparent Distress
HEENT: Moist Mucous Membranes
Respiratory: Non Labored Respirations; Negative Wheezes or Accessory Resp Muscle Use
Cardiac: Regular Rhythm and S1/S2
Skin: Warm
Neuro: AO x 3
Psych: Calm
Data Reviewed
-
Diagnostic Radiology: Image personally visualized and interpreted and Report Reviewed by me
Labs: Labs Reviewed by me
[2023-12-27] MEDS: ROBITUSSIN DM 10 ML PO ×2 (15:21→20:50)
[2023-12-27] MEDS: NOVOLOG FLEXPEN-LOW RESISTANCE 5 UNITS SC (16:13)
[2023-12-27 16:18] LABS: Glucose - Point of Care 371 mg/dl (70-99)
[2023-12-27] MEDS: LIPITOR 40 MG PO (20:45)
[2023-12-27] MEDS: PEPCID 20 MG PO (20:45)
[2023-12-27 21:08] LABS: Glucose - Point of Care 401 mg/dl (70-99)
[2023-12-27] MEDS: VENTOLIN NEBULES 2.5 MG INH (21:20)
[2023-12-27 21:39] LABS: Glucose 397 mg/dl (70-99)
[2023-12-27] MEDS: NOVOLOG FLEXPEN 10 UNITS SC (22:25)
[2023-12-27] MEDS: LANTUS 0.299999999999999989 UNITS SC (22:27)
[2023-12-28 00:35] LABS: Glucose - Point of Care 327 mg/dl (70-99)
[2023-12-28] MEDS: DESENEX/MITRAZOL/ZEASORB 1 APPLIC TOPICAL (00:52)
[2023-12-28] MEDS: NOVOLOG FLEXPEN 10 UNITS SC ×2 (00:53→16:52)
[2023-12-28 02:58] VITALS: BMI 39.3
[2023-12-28 02:58] LABS: Glucose - Point of Care 264 mg/dl (70-99)
--- NOTE | 2023-12-28 03:00 | PTCARENOTE ---
Glucometer unable to read glucose, STAT venous glucose ordered. 12/27 at 21:19 venous glucose [id number], WATCH ENGINEER made aware, new order provided, 10 units ordered, see JAN. 12/28 at 00:32 glucose rechecked, result= 327, WATCH ENGINEER made aware, new order
provided, 10 units ordered, see JAN. 12/28 at at 02:56 glucose rechecked, result= 264, WATCH ENGINEER made aware, no new orders provided. Will continue to monitor.
[2023-12-28 03:02] VITALS: BP 141/59
[2023-12-28 06:32] LABS: % Basophils 0.1 % (0-2); % Immature Granulocytes 0.3 % (0-0.5); % Monocytes 8.4 % (1.7-9.3); % Neutrophils 82.2 % (42.2-75.2); Absolute Lymphocytes 0.9 10^3/uL (1.2-3.4); Absolute Monocytes 0.9 10^3/uL (0.1-0.6); Absolute Neutrophils 8.5 10^3/uL (1.4-6.5); Hematocrit 33.9 % (37.0-47.0); Hemoglobin 10.7 g/dL (12.0-16.0); Mean Corp Hgb Conc. 31.6 g/dL (33.0-37.0); Mean Corpuscular Hgb 25.9 pg (27.0-31.0); Mean Corpuscular Volume 82.1 fL (81.0-99.0); Nucleated Red Blood Cells % 0 %; Platelet Count 341 10^3/uL (130-400); Red Blood Cell Count 4.13 10^6/uL (4.20-5.40); Red Cell Dist. Width 15.8 % (11.5-14.5); White Blood Cell Count 10.4 10^3/uL (4.8-10.8)
[2023-12-28 07:00] VITALS: BP 156/65
[2023-12-28] MEDS: COLACE 100 MG PO ×2 (07:31→21:54)
[2023-12-28] MEDS: VITAMIN D3 (cholecalciferol) 25 MCG PO (07:31)
[2023-12-28] MEDS: ZYLOPRIM 300 MG PO (07:31)
[2023-12-28] MEDS: KLONOPIN 0.5 MG PO ×2 (07:31→21:58)
[2023-12-28] MEDS: DELTASONE 10 MG PO ×2 (07:31→21:58)
[2023-12-28] MEDS: ASPIR LOW (ENTERIC COATED) 81 MG PO (07:31)
[2023-12-28] MEDS: SENOKOT 8.59999999999999964 MG PO ×2 (07:31→21:54)
[2023-12-28] MEDS: NORVASC 10 MG PO (07:31)
[2023-12-28] MEDS: ZOLOFT 25 MG PO (07:31)
[2023-12-28 07:32] LABS: Blood Urea Nitrogen 91 mg/dl (7-17); Calcium 9.6 mg/dl (8.4-10.2); Carbon Dioxide 35 mmol/L (22-30); Chloride 89 mmol/L (98-107); Estimated Creatinine Clearance 26 ml/min; Glucose 210 mg/dl (70-99); Potassium 3.8 mmol/L (3.5-5.1); Sodium 134 mmol/L (135-145); eGFR 28.13
[2023-12-28] MEDS: METAMUCIL, KONSYL 1 PACKET PO (07:32)
[2023-12-28] MEDS: NOVOLOG FLEXPEN 8 UNITS SC ×2 (07:32→11:29)
[2023-12-28] MEDS: HEPARIN 5000 UNITS SC ×2 (07:32→21:55)
[2023-12-28] MEDS: LASIX 80 MG IV ×2 (07:33→16:51)
[2023-12-28] MEDS: LIDOCAINE 4% PATCH 1 PATCH TOPICAL (07:34)
[2023-12-28] MEDS: NOVOLOG FLEXPEN-LOW RESISTANCE 1 UNITS SC (07:37)
[2023-12-28 07:38] LABS: Glucose - Point of Care 195 mg/dl (70-99)
[2023-12-28 07:42] LABS: Uric Acid 4.1 mg/dl (2.5-6.2)
--- NOTE | 2023-12-28 07:42 | W.PN.CD ---
Today's Communication / Plan
-
-
cont w IV BID lasix today
Impression / Plan
-
Acute on chronic HFpEF - acute on chronic.
- Clearly volume overloaded on exam - Improved since admission, on IV lasix BID
- She was discharged last month on 80 mg orally twice daily
- Dry weight appears to be ~90kg if renal function allows - renal function is improved today
- Heart failure education provided, we specifically reviewed fluid restriction
-cont IV BID lasix today - hopefully Gout does not flair up on her
-Likely home (return to SNF) in 24-48
AMADO on CKD3b, Nephrology following
Hypervolemic hyponatremia
Hyperkalemia, improved s/p Lokelma, per primary
Complete heart block s/p Medtronic PPM 11/15/2023, stable, followed in outpatient device clinic
CAD s/p CABG - stable w/o chest pain, continue ASA, statin
Prior CVA
Type 2 diabetes mellitus, with hyperglycemia, HgbA1c 8.0%
Physical Exam
Vital Signs/Labs
Vital Signs
Temp Pulse Resp BP Pulse Ox
98 F 68 20 156/65 96
12/28/23 03:02 12/28/23 07:33 12/28/23 03:02 12/28/23 07:33 12/28/23 03:02
12/27/23 12/28/23 12/29/23
06:59 06:59 06:59
Actual Weight 213 lb 5 oz 207 lb 12.8 oz
12/28/23 06:17
12/28/23 06:17
Magnesium 2.0 mg/dl (1.6-2.3) 12/26/23 14:51
LAB Results
12/26/23
17:18
Troponin I 0.028
Physical Exam
Constitutional: Comfortable
Cardiovascular: Rhythm & rate is regular and Systolic murmur present
Respiratory: Labored respirations and Crackles Present
Data Reviewed
-
Date of Service: December 28, 2023
EKG: Tracing Personally Visualized and interpreted
Labs: Labs Reviewed by me
[2023-12-28 08:20] VITALS: BMI 39.3
[2023-12-28 11:00] VITALS: BP 135/57
[2023-12-28 11:26] LABS: Glucose - Point of Care 252 mg/dl (70-99)
[2023-12-28] MEDS: NOVOLOG FLEXPEN-LOW RESISTANCE 3 UNITS SC (11:28)
--- NOTE | 2023-12-28 11:29 | PN.DE.MGMTRT ---
Insulin Management
- -
12/28/2023: Diabetes Management Consult
78 year old female admitted on 12/26/2023 with Acute hypoxic respiratory failure likely due to Acute on chronic HFpEF.
Pt well known to our service from previous hosp admissions. Was recently treated for acute hypoxic respiratory failure, recent hospitalization for pneumonia, most likely aspiration requiring PEG tube at that time
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
Recent A1C 8.0% on 12/06/23, Cr 2.2, eGFR 28.13.
Pt is seen in room, awake and alert, sitting up in bed, visiting with her friends. She responds to questions at a limited level of comprehension.
Pt is not able to provide hx of events that led up to her admission. Information obtained from chart review.
She is on chronic steroids- Pred 30mg BID at home which has been decreased to 20 mg BID
Diabetes regimen includes Lantus 30 units @ HS and NovoLog 8 units AC with low corrective insulin.
Glucose trended up to 401 @ HS last night and has remained >200 with a premeal range of 195 to 371, FBG 210 this AM.
Will increase Lantus to 32 units, NovoLog to 10 units AC and change to moderate corrective insulin
Will closely follow for need to adjust Q6 hr NovoLog dose.
Diabetes History
- -
Type of Diabetes: 2 requiring insulin
Pre-Admission Diabetes Regimen
12/28/23
06:17
Creatinine 1.8 H
Insulin Pump Settings
IP Diabetes Regimen
12/27/23 12/27/23 12/27/23
13:09 16:12 21:07
Glucose
POC Glucose 335 H 371 H 401 H
12/27/23 12/28/23 12/28/23
21:19 00:32 02:56
Glucose 397 H
POC Glucose 327 H 264 H
12/28/23 12/28/23 12/28/23
06:17 07:36 11:24
Glucose 210 H
POC Glucose 195 H 252 H
Meal type: Lunch
Meal type: Breakfast
Amount consumed: 100%
Amount consumed: 0
Patient Education
--- NOTE | 2023-12-28 13:38 | W.PN.HOSP.TC ---
Today's Communication/Plan
-
cont iv diuresis
Assessment / Plan
Assessment / Plan
General: Comfortable, Conversant and Obese; No Pain or Chills
HEENT: NormoCephalic, Anicteric, Moist mucous membranes, PERRLA, [place] Conjunctivae, No Ptosis and Oxygen (2 L NC)
Respiratory: Wheezes (With poor inspiratory effort); No Rales or Rhonchi
Cardiac: S1/S2, Regular Rhythm, Peripheral Edema (Chronic +2 nonpitting) and JVD; No Murmur, Rub or Gallop
Breast: Deferred by me
GI: Soft, Non Tender, Non Distended, Normal Bowel Sounds and No Hepatosplenomegaly
Rectal: Deferred by Provider
Genito-urinary: Deferred by me
Musculoskeletal: No Clubbing, No Cyanosis, Edema, Left Lower Extremity (+2 nonpitting) and Edema, Right Lower Extremity (+2 nonpitting); No Edema, Left Upper Extremity or Edema, Right Upper Extremity
Skin: Warm and Dry; No Rash
Neuro: AO x 3 (To name, place, place of living, year, recent history), Nonfocal/grossly intact, Cranial Nerves Intact and No Sensory Deficits; No Slurred Speech, Facial Droop or Tremors
Psych: Calm
#AMADO
# Most likely cardiorenal
� 80 mg IV Lasix twice daily
� Renal consulted
� Monitor urine output
�Patient would like medical treatment options at this time, does have a POLST that has comfort measures listed
#Hyperkalemia
-resolved
� Most likely secondary to AMADO
� Lokelma given
� No EKG changes
� Continue monitoring with IV diuresis
� BMP f/u
# Acute on chronic� hypoxic respiratory failure likely from acute on chronic HFpEF
� Switch to 80 mg IV Lasix twice daily
� Nephrology consulted
-Wean as tolerated
-Strict I&O
-Daily weight
-Fluid restriction
-Cardiology consulted
#Leukocytosis
-most likely steroids
-monitor with weaning of steroids - unclear why patient is on it but to be dced 2/5 regardless after 10 days as per med rec; can further wean by 2/2 to 10mg daily
#Hyponatremia
2/2 to volume overload
-monitor wth diuresis
# Anemia of chronic disease
-No active bleeding
-Continue to monitor
# Severe symptomatic bradycardia
-EKG with impression of SINUS RHYTHM WITH 2ND DEGREE A-V BLOCK WITH 2:1 A-V CONDUCTION
�Dual-chamber pacemaker implantation 11/15
#CAD s/p prior CABG
-aspirin, statin continued
#Essential hypertension
-continue Norvasc, Lasix, avoid hypotension
�Hold all nephrotoxic agents
#Diabetes mellitus type 2 on insulin
-Continue home regimen
-sliding scale
-CHO diet
#HLD
-statin continued
#anxiety
-clonazepam continued
-Sertraline
#GOUT
-allopurinol, colchicine continued
#GERD
_PPI continued
#History of CVA in the past and dysphagia
-peg tube removed
- She is on a pur�ed ,and thin liquid diet at long-term
# DVT prophylaxis
-Heparin subcu
# CODE STATUS
-Full code
Anticipated Discharge: 24 - 48 hours
Subjective/Interval History
-
Date of Service: December 28, 2023
No acute events overnight
Objective Data
-
Labs:
Laboratory Results
12/28/23
06:17
WBC 10.4
Hgb 10.7 L
Hct 33.9 L
Plt Count 341
Sodium 134 L
Potassium 3.8 D
Chloride 89 L
Carbon Dioxide 35 H
BUN 91 H
Creatinine 1.8 H
Glucose 210 H
Calcium 9.6
Vital Signs:
Vital Signs
Temp Pulse Resp BP Pulse Ox
97.8 F 65 18 135/57 95
12/28/23 11:00 12/28/23 11:00 12/28/23 11:00 12/28/23 11:00 12/28/23 11:00
I&O
12/27/23 12/28/23 12/29/23
06:59 06:59 06:59
Intake Total 0 / 0 340 / 340
Output Total 600 / 600 2795 / 2795
Balance -600 / -600 -2455 / -2455
Review of Systems
-
History Source: Patient
All other systems: Not reviewed unless documented
Data Reviewed
-
Diagnostic Radiology: Image personally visualized and interpreted and Report Reviewed by me
Labs: Labs Reviewed by me
--- NOTE | 2023-12-28 14:08 | CM ---
Reviewed chart, placed a call to patient's sister to obtain information for assessment. Patient's sister stated that patient is LTC at [facility]. She has a walker but she does not use it. She is primarily in her w/c. Patient's family confirmed that she
would like for her to return to [facility] upon medical clearance.
Placed a call to [facility] and spoke with Felipa, her RN who stated that patient self propels in her w/c. She is max assist with all ADLs, self care, bathing, dressing and toileting. She is a max assist of 2 for transfers. Supervision for bed mobility.
She is on clear liquids and low fat regarding her diet.
Will return call to [facility] prior to her return to confirm that they can continue to accommodate her, or if she needs SNF. PT singed off as she is at baseline.
Plan: Case management will continue to follow and assist with discharge planning. Tentative back to [facility].
[2023-12-28 15:00] VITALS: BP 146/80
[2023-12-28 16:31] LABS: Glucose - Point of Care 325 mg/dl (70-99)
[2023-12-28] MEDS: NOVOLOG FLEXPEN-LOW RESISTANCE 4 UNITS SC (16:53)
--- NOTE | 2023-12-28 17:45 | W.PN.NEPH.PH ---
Today's Communication / Plan
-
diuresis
Assessment/Plan
-
Assessment
-AMADO
-CKD3b (1.2-1.5)
-HFpEF decompensated
-mod MS/MR/TR
-hyponatremia
-hyperkalemia
-metabolic alkalosis
-PPM/CHB
-DM2
-CAD
-gout/tophi bilateral elbows
Plan
cr improving with diuresis
-k improving , prn replacement
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
hyponatremia partly from hyperglycemia
monitor evolving met alkalosis
bp are stable
reviewed imp of FR
labs in am
-
-
Date of Service: December 28, 2023
CC / HPI / ROS
-
Chief Complaint:
AMADO
History of Present Illness:
cr improving to 1.8
sodium better 134 uncorrected
wt decreasing
Review of Systems:
improving sob
no cp
Labs
-
Labs:
WBC 10.4 10^3/uL (4.8-10.8) 12/28/23 06:17
RBC 4.13 10^6/uL (4.20-5.40) L 12/28/23 06:17
Hgb 10.7 g/dL (12.0-16.0) L 12/28/23 06:17
Hct 33.9 % (37.0-47.0) L 12/28/23 06:17
Plt Count 341 10^3/uL (130-400) 12/28/23 06:17
Sodium 134 mmol/L (135-145) L 12/28/23 06:17
Potassium 3.8 mmol/L (3.5-5.1) D 12/28/23 06:17
Chloride 89 mmol/L (98-107) L 12/28/23 06:17
Carbon Dioxide 35 mmol/L (22-30) H 12/28/23 06:17
BUN 91 mg/dl (7-17) H 12/28/23 06:17
Creatinine 1.8 mg/dL (0.6-1.0) H 12/28/23 06:17
eGFR 28.13 12/28/23 06:17
Glucose 210 mg/dl (70-99) H 12/28/23 06:17
Calcium 9.6 mg/dl (8.4-10.2) 12/28/23 06:17
Albumin 4.4 g/dl (3.5-5.0) 12/26/23 14:51
Physical Exam
-
Vital Signs:
Vital Signs
Temp Pulse Resp BP Pulse Ox
98.9 F 68 18 146/80 97
12/28/23 15:00 12/28/23 16:51 12/28/23 15:00 12/28/23 16:51 12/28/23 15:00
Cardiovascular:: Regular rate and rhythm
Respiratory:: Bilateral: Coarse
Lung Excursion:: Normal
Abdomen:: Nontender and Soft
Extremity Edema:: +1: Bilateral:
Almanzar Catheter: No
[2023-12-28 19:35] VITALS: BP 148/59
[2023-12-28] MEDS: LANTUS 0.320000000000000007 UNITS SC (21:54)
[2023-12-28] MEDS: PEPCID 20 MG PO (21:54)
[2023-12-28] MEDS: LIPITOR 40 MG PO (21:54)
[2023-12-28 21:55] LABS: Glucose - Point of Care 249 mg/dl (70-99)
[2023-12-28] MEDS: ROBITUSSIN DM 10 ML PO (21:58)
[2023-12-28] MEDS: VENTOLIN NEBULES 2.5 MG INH (22:17)
[2023-12-28 23:43] VITALS: BP 136/55
[2023-12-29 03:05] VITALS: BP 128/55
[2023-12-29 05:44] VITALS: BMI 38.5
[2023-12-29 06:57] LABS: % Basophils 0.1 % (0-2); % Eosinophils 0.3 % (0-6); % Immature Granulocytes 0.3 % (0-0.5); % Lymphocytes 9.3 % (20.5-51.1); % Monocytes 5.7 % (1.7-9.3); % Neutrophils 84.3 % (42.2-75.2); Absolute Lymphocytes 0.9 10^3/uL (1.2-3.4); Absolute Monocytes 0.6 10^3/uL (0.1-0.6); Absolute Neutrophils 8.4 10^3/uL (1.4-6.5); Hematocrit 33.7 % (37.0-47.0); Hemoglobin 10.5 g/dL (12.0-16.0); Mean Corp Hgb Conc. 31.2 g/dL (33.0-37.0); Mean Corpuscular Hgb 25.4 pg (27.0-31.0); Mean Corpuscular Volume 81.6 fL (81.0-99.0); Mean Platelet Volume 10.8 fL (7.4-10.4); Nucleated Red Blood Cells % 0 %; Platelet Count 344 10^3/uL (130-400); Red Blood Cell Count 4.13 10^6/uL (4.20-5.40); Red Cell Dist. Width 15.7 % (11.5-14.5)
[2023-12-29 07:00] VITALS: BP 161/105
[2023-12-29 07:22] LABS: Blood Urea Nitrogen 77 mg/dl (7-17); Calcium 9.2 mg/dl (8.4-10.2); Chloride 89 mmol/L (98-107); Estimated Creatinine Clearance 31 ml/min; Glucose 217 mg/dl (70-99); Magnesium 1.9 mg/dl (1.6-2.3); Potassium 3.7 mmol/L (3.5-5.1); Sodium 134 mmol/L (135-145); eGFR 35.01
[2023-12-29 07:33] LABS: Carbon Dioxide 39 mmol/L (22-30)
--- NOTE | 2023-12-29 07:54 | PN.DE.MGMTRT ---
Insulin Management
- -
12/28/2023: Diabetes Management Consult
78 year old female admitted on 12/26/2023 with Acute hypoxic respiratory failure likely due to Acute on chronic HFpEF.
Pt well known to our service from previous hosp admissions. Was recently treated for acute hypoxic respiratory failure, recent hospitalization for pneumonia, most likely aspiration requiring PEG tube at that time
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
Recent A1C 8.0% on 12/06/23, Cr 2.2, eGFR 28.13.
Pt is seen in room, awake and alert, sitting up in bed, visiting with her friends. She responds to questions at a limited level of comprehension.
Pt is not able to provide hx of events that led up to her admission. Information obtained from chart review.
She is on chronic steroids- Pred 30mg BID at home which has been decreased to 20 mg BID
Diabetes regimen includes Lantus 30 units @ HS and NovoLog 8 units AC with low corrective insulin.
Glucose trended up to 401 @ HS last night and has remained >200 with a premeal range of 195 to 371, FBG 210 this AM.
Will increase Lantus to 32 units, NovoLog to 10 units AC and change to moderate corrective insulin
Will closely follow for need to adjust Q6 hr NovoLog dose.
12/29/2023 Diabetes Management Follow up
Lantus dose increased yesterday to 32 units, fasting glucose 217. Will increase hs lantus to 34 units. Novolog increased to 10 units continued with glucose >200 requiring additional corrective insulin. Will increase AC novolog to 14 units. Will
follow for further needed adjustments.
Diabetes History
- -
Type of Diabetes: 2 requiring insulin
Pre-Admission Diabetes Regimen
12/29/23
06:36
Creatinine 1.5 H
Insulin Pump Settings
IP Diabetes Regimen
12/28/23 12/28/23 12/28/23
11:24 16:30 21:53
Glucose
POC Glucose 252 H 325 H 249 H
12/29/23
06:36
Glucose 217 H
POC Glucose
Meal type: Dinner
Meal type: Lunch
Meal type: Breakfast
Amount consumed: 100%
Amount consumed: 100%
Amount consumed: 100%
Patient Education
[2023-12-29 08:51] LABS: Glucose - Point of Care 209 mg/dl (70-99)
--- NOTE | 2023-12-29 08:55 | W.PN.CD ---
Today's Communication / Plan
-
continue iv diuresis
tubigrips ordered
Impression / Plan
-
Acute on chronic HFpEF - acute on chronic.
- Clearly volume overloaded on exam - Improved since admission, on IV lasix BID
- She was discharged last month on 80 mg orally twice daily
- Dry weight appears to be ~90kg if renal function allows - renal function is improving with diuresis
- Heart failure education provided through out hospitalization, we specifically reviewed fluid restriction
-cont IV BID lasix today - with intensive monitoring of labs and vs.
-add tubigrips
-Likely home (return to SNF) in 24-48
AMADO on CKD3b, Nephrology following
Hypervolemic hyponatremia
Hyperkalemia, improved s/p Lokelma, per primary
Complete heart block s/p Medtronic PPM 11/15/2023, stable, followed in outpatient device clinic
CAD s/p CABG - stable w/o chest pain, continue ASA, statin
Prior CVA
Type 2 diabetes mellitus, with hyperglycemia, HgbA1c 8.0%
gout chronic
Subjective:
she is feeling better still short of breat though. She reports the use of home oxygen
Physical Exam
Vital Signs/Labs
Vital Signs
Temp Pulse Resp BP Pulse Ox
97.4 F 63 16 128/55 94
12/29/23 03:05 12/29/23 03:05 12/29/23 03:05 12/29/23 03:05 12/29/23 03:05
12/28/23 12/29/23 12/30/23
06:59 06:59 06:59
Actual Weight 94.256 kg 92.334 kg
12/29/23 06:36
12/29/23 06:36
Magnesium 1.9 mg/dl (1.6-2.3) 12/29/23 06:36
LAB Results
12/26/23
17:18
Troponin I 0.028
Physical Exam
Constitutional: No acute distress
Cardiovascular: Rhythm & rate is regular, Pedal edema present (1-2+ pitting and nonpitting int he legs and feet) and Systolic murmur present (HSM at the apex)
Respiratory: Respiratory effort normal, Crackles Absent, Rhonchi Absent and Wheeze Present (anteriorly )
Neuro/Psych: AO x 3
Data Reviewed
-
Date of Service: December 29, 2023
EKG: Other (tele intermitent pacing)
[2023-12-29] MEDS: KLONOPIN 0.5 MG PO ×2 (10:07→20:09)
[2023-12-29] MEDS: NORVASC 10 MG PO (10:07)
[2023-12-29] MEDS: SENOKOT 8.59999999999999964 MG PO ×2 (10:07→20:11)
[2023-12-29] MEDS: DELTASONE 10 MG PO ×2 (10:07→20:00)
[2023-12-29] MEDS: HEPARIN 5000 UNITS SC ×2 (10:08→20:02)
[2023-12-29] MEDS: VITAMIN D3 (cholecalciferol) 25 MCG PO (10:08)
[2023-12-29] MEDS: ZOLOFT 25 MG PO (10:08)
[2023-12-29] MEDS: ZYLOPRIM 300 MG PO (10:08)
[2023-12-29] MEDS: LASIX 80 MG IV ×2 (10:09→18:01)
[2023-12-29] MEDS: METAMUCIL, KONSYL 1 PACKET PO (10:09)
[2023-12-29] MEDS: NOVOLOG FLEXPEN 14 UNITS SC ×3 (10:10→18:02)
[2023-12-29] MEDS: LIDOCAINE 4% PATCH 1 PATCH TOPICAL (10:10)
[2023-12-29] MEDS: NOVOLOG FLEXPEN-LOW RESISTANCE 2 UNITS SC (10:10)
[2023-12-29] MEDS: NOVOLOG FLEXPEN SC (10:11)
[2023-12-29] MEDS: COLACE PO (10:12)
[2023-12-29] MEDS: ASPIR LOW (ENTERIC COATED) PO (10:12)
[2023-12-29] MEDS: VENTOLIN NEBULES 2.5 MG INH ×2 (10:25→19:37)
--- NOTE | 2023-12-29 11:39 | W.PN.HOSP.TC ---
Today's Communication/Plan
-
wean steroids
cont iv diuresis, most likely 1 additional day
Assessment / Plan
Assessment / Plan
General: Comfortable, Conversant and Obese; No Pain or Chills
HEENT: NormoCephalic, Anicteric, Moist mucous membranes, PERRLA, [place] Conjunctivae, No Ptosis and Oxygen (2 L NC)
Respiratory: Wheezes (With poor inspiratory effort); No Rales or Rhonchi
Cardiac: S1/S2, Regular Rhythm, Peripheral Edema (Chronic +2 nonpitting) and JVD; No Murmur, Rub or Gallop
Breast: Deferred by me
GI: Soft, Non Tender, Non Distended, Normal Bowel Sounds and No Hepatosplenomegaly
Rectal: Deferred by Provider
Genito-urinary: Deferred by me
Musculoskeletal: No Clubbing, No Cyanosis, Edema, Left Lower Extremity (+2 nonpitting) and Edema, Right Lower Extremity (+2 nonpitting); No Edema, Left Upper Extremity or Edema, Right Upper Extremity
Skin: Warm and Dry; No Rash
Neuro: AO x 3 (To name, place, place of living, year, recent history), Nonfocal/grossly intact, Cranial Nerves Intact and No Sensory Deficits; No Slurred Speech, Facial Droop or Tremors
Psych: Calm
#AMADO
# Most likely cardiorenal
� 80 mg IV Lasix twice daily
� Renal consulted
� Monitor urine output
�Patient would like medical treatment options at this time, does have a POLST that has comfort measures listed
#Hyperkalemia
-resolved
� Most likely secondary to AMADO
� Lokelma given
� No EKG changes
� Continue monitoring with IV diuresis
� BMP f/u
# Acute on chronic� hypoxic respiratory failure likely from acute on chronic HFpEF +/- atelectasis
� Switch to 80 mg IV Lasix twice daily
� Nephrology consulted
-Wean as tolerated
-Strict I&O
-Daily weight
-Fluid restriction
-Cardiology consulted
#Leukocytosis
-most likely steroids
-monitor with weaning of steroids - unclear why patient is on it but to be dced 2/5 regardless after 10 days as per med rec; can further wean by 2/2 to 10mg daily
#Hyponatremia
2/2 to volume overload
-monitor with diuresis
# Anemia of chronic disease
-No active bleeding
-Continue to monitor
# Severe symptomatic bradycardia
-EKG with impression of SINUS RHYTHM WITH 2ND DEGREE A-V BLOCK WITH 2:1 A-V CONDUCTION
�Dual-chamber pacemaker implantation 11/15
#CAD s/p prior CABG
-aspirin, statin continued
#Essential hypertension
-continue Norvasc, Lasix, avoid hypotension
�Hold all nephrotoxic agents
#Diabetes mellitus type 2 on insulin
-Continue home regimen
-sliding scale
-CHO diet
#HLD
-statin continued
#anxiety
-clonazepam continued
-Sertraline
#GOUT
-allopurinol, colchicine continued
#GERD
_PPI continued
#History of CVA in the past and dysphagia
-peg tube removed
- She is on a pur�ed ,and thin liquid diet at [facility]
# DVT prophylaxis
-Heparin subcu
# CODE STATUS
-Full code
Anticipated Discharge: Within 24 hours
Subjective/Interval History
-
Date of Service: December 29, 2023
No acute events overnight
Objective Data
-
Labs:
Laboratory Results
12/29/23
06:36
WBC 10.0
Hgb 10.5 L
Hct 33.7 L
Plt Count 344
Sodium 134 L
Potassium 3.7
Chloride 89 L
Carbon Dioxide 39 H
BUN 77 H
Creatinine 1.5 H
Glucose 217 H
Calcium 9.2
Vital Signs:
Vital Signs
Temp Pulse Resp BP Pulse Ox
97.4 F 73 20 161/105 96
12/29/23 07:00 12/29/23 10:27 12/29/23 10:27 12/29/23 10:07 12/29/23 10:27
I&O
12/28/23 12/29/23 12/30/23
06:59 06:59 06:59
Intake Total 340 / 340 750 / 750
Output Total 2795 / 2795 2700 / 2700
Balance -2455 / -2455 -1950 / -1950
Review of Systems
-
History Source: Patient
All other systems: Not reviewed unless documented
Physical Exam
-
General: No Apparent Distress
HEENT: Moist Mucous Membranes
Respiratory: Non Labored Respirations; Negative Wheezes or Accessory Resp Muscle Use
Cardiac: Regular Rhythm and S1/S2
Skin: Warm
Neuro: AO x 3
Psych: Calm
Data Reviewed
-
Diagnostic Radiology: Image personally visualized and interpreted and Report Reviewed by me
Labs: Labs Reviewed by me
[2023-12-29 11:40] LABS: Glucose - Point of Care 273 mg/dl (70-99)
[2023-12-29 12:38] VITALS: BP 167/65
[2023-12-29] MEDS: NOVOLOG FLEXPEN-LOW RESISTANCE 3 UNITS SC (13:26)
[2023-12-29 15:00] VITALS: BP 130/82
--- NOTE | 2023-12-29 15:21 | W.PN.NEPH.PH ---
Today's Communication / Plan
-
IV lasix, diamoxx2
Assessment/Plan
-
Assessment
-AMADO
-CKD3b (1.2-1.5)
-HFpEF decompensated
-mod MS/MR/TR
-hyponatremia
-hyperkalemia
-metabolic alkalosis
-PPM/CHB
-DM2
-CAD
-gout/tophi bilateral elbows
Plan
cr with in baseline
cotn IV lasix as she still sob
wt decreasing
evolving met alkalosis noted, will dose diamox x2
hyponatremia stable
bp are stable
maintain FR
labs in am
-
-
Date of Service: December 29, 2023
CC / HPI / ROS
-
Chief Complaint:
AMADO
History of Present Illness:
cr improving to 1.5
sodium stable 134
wt decreasing
BP stable
Review of Systems:
sob at rest
no cp
Labs
-
Labs:
WBC 10.0 10^3/uL (4.8-10.8) 12/29/23 06:36
RBC 4.13 10^6/uL (4.20-5.40) L 12/29/23 06:36
Hgb 10.5 g/dL (12.0-16.0) L 12/29/23 06:36
Hct 33.7 % (37.0-47.0) L 12/29/23 06:36
Plt Count 344 10^3/uL (130-400) 12/29/23 06:36
Sodium 134 mmol/L (135-145) L 12/29/23 06:36
Potassium 3.7 mmol/L (3.5-5.1) 12/29/23 06:36
Chloride 89 mmol/L (98-107) L 12/29/23 06:36
Carbon Dioxide 39 mmol/L (22-30) H 12/29/23 06:36
BUN 77 mg/dl (7-17) H 12/29/23 06:36
Creatinine 1.5 mg/dL (0.6-1.0) H 12/29/23 06:36
eGFR 35.01 12/29/23 06:36
Glucose 217 mg/dl (70-99) H 12/29/23 06:36
Calcium 9.2 mg/dl (8.4-10.2) 12/29/23 06:36
Albumin 4.4 g/dl (3.5-5.0) 12/26/23 14:51
Physical Exam
-
Vital Signs:
Vital Signs
Temp Pulse Resp BP Pulse Ox
98.2 F 71 18 167/65 94
12/29/23 12:38 12/29/23 12:38 12/29/23 12:38 12/29/23 12:38 12/29/23 12:38
Cardiovascular:: Regular rate and rhythm
Respiratory:: Bilateral: Coarse
Lung Excursion:: Abnormal
Abdomen:: Nontender and Soft
Extremity Edema:: +2: Bilateral:
Almanzar Catheter: No
[2023-12-29 16:31] LABS: Glucose - Point of Care 323 mg/dl (70-99)
[2023-12-29] MEDS: DIAMOX 125 MG PO ×2 (18:01→22:47)
[2023-12-29] MEDS: NOVOLOG FLEXPEN-LOW RESISTANCE 4 UNITS SC (18:02)
[2023-12-29] MEDS: ROBITUSSIN DM 10 ML PO (18:24)
[2023-12-29 19:30] VITALS: BP 116/51
[2023-12-29] MEDS: COLACE 100 MG PO (19:58)
[2023-12-29 22:04] LABS: Glucose - Point of Care 313 mg/dl (70-99)
[2023-12-29] MEDS: DIAMOX PO (22:42)
[2023-12-29] MEDS: LANTUS 0.340000000000000024 UNITS SC (22:54)
[2023-12-29] MEDS: LIPITOR 40 MG PO (22:56)
[2023-12-29] MEDS: PEPCID 20 MG PO (22:57)
[2023-12-29 23:30] VITALS: BP 122/53
[2023-12-30 03:48] VITALS: BP 138/63
[2023-12-30 05:30] VITALS: BMI 37.7
[2023-12-30 06:32] LABS: % Basophils 0.1 % (0-2); % Eosinophils 0.4 % (0-6); % Immature Granulocytes 0.5 % (0-0.5); % Lymphocytes 10.2 % (20.5-51.1); % Monocytes 6.3 % (1.7-9.3); % Neutrophils 82.5 % (42.2-75.2); Absolute Eosinophils 0.1 10^3/uL (0-0.7); Absolute Immature Granulocytes 0.1 10^3/uL (0-0.05); Absolute Lymphocytes 1.1 10^3/uL (1.2-3.4); Absolute Monocytes 0.7 10^3/uL (0.1-0.6); Absolute Neutrophils 9.2 10^3/uL (1.4-6.5); Hematocrit 32.4 % (37.0-47.0); Hemoglobin 10.1 g/dL (12.0-16.0); Mean Corp Hgb Conc. 31.2 g/dL (33.0-37.0); Mean Corpuscular Hgb 25.3 pg (27.0-31.0); Mean Corpuscular Volume 81.2 fL (81.0-99.0); Mean Platelet Volume 11.8 fL (7.4-10.4); Nucleated Red Blood Cells % 0 %; Platelet Count 328 10^3/uL (130-400); Red Blood Cell Count 3.99 10^6/uL (4.20-5.40); Red Cell Dist. Width 15.9 % (11.5-14.5); White Blood Cell Count 11.1 10^3/uL (4.8-10.8)
[2023-12-30 07:00] VITALS: BP 153/70
[2023-12-30 07:10] LABS: Blood Urea Nitrogen 70 mg/dl (7-17); Calcium 9.2 mg/dl (8.4-10.2); Chloride 84 mmol/L (98-107); Estimated Creatinine Clearance 31 ml/min; Glucose 278 mg/dl (70-99); Potassium 3.5 mmol/L (3.5-5.1); Sodium 136 mmol/L (135-145); eGFR 35.01
[2023-12-30 07:22] LABS: Carbon Dioxide 43 mmol/L (22-30)
--- NOTE | 2023-12-30 07:27 | PN.DE.MGMTRT ---
Insulin Management
- -
12/28/2023: Diabetes Management Consult
78 year old female admitted on 12/26/2023 with Acute hypoxic respiratory failure likely due to Acute on chronic HFpEF.
Pt well known to our service from previous hosp admissions. Was recently treated for acute hypoxic respiratory failure, recent hospitalization for pneumonia, most likely aspiration requiring PEG tube at that time
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
Recent A1C 8.0% on 12/06/23, Cr 2.2, eGFR 28.13.
Pt is seen in room, awake and alert, sitting up in bed, visiting with her friends. She responds to questions at a limited level of comprehension.
Pt is not able to provide hx of events that led up to her admission. Information obtained from chart review.
She is on chronic steroids- Pred 30mg BID at home which has been decreased to 20 mg BID
Diabetes regimen includes Lantus 30 units @ HS and NovoLog 8 units AC with low corrective insulin.
Glucose trended up to 401 @ HS last night and has remained >200 with a premeal range of 195 to 371, FBG 210 this AM.
Will increase Lantus to 32 units, NovoLog to 10 units AC and change to moderate corrective insulin
Will closely follow for need to adjust Q6 hr NovoLog dose.
12/29/2023 Diabetes Management Follow up
Lantus dose increased yesterday to 32 units, fasting glucose 217. Will increase hs Lantus to 34 units. NovoLog increased to 10 units continued with glucose >200 requiring additional corrective insulin. Will increase AC NovoLog to 14 units. Will
follow for further needed adjustments.
12/30/2023:Diabetes Management F/U:
Remains on steroids- Pred 10mg BID
Glucose remains elevated, FBG 278 this AM, premeal range 207- 323, requiring additional corrective insulin
Will further increase Lantus to 38 units and AC NovoLog to 18 units.
Will follow for further needed adjustments.
Diabetes History
- -
Type of Diabetes: 2 requiring insulin
Pre-Admission Diabetes Regimen
12/30/23
06:11
Creatinine 1.5 H
Insulin Pump Settings
IP Diabetes Regimen
12/29/23 12/29/23 12/29/23
08:50 11:39 16:30
Glucose
POC Glucose 209 H 273 H 323 H
12/29/23 12/30/23
22:03 06:11
Glucose 278 H
POC Glucose 313 H
Meal type: Lunch
Meal type: Breakfast
Meal type: Breakfast
Amount consumed: 100%
Amount consumed: 100%
Amount consumed: 100%
Patient Education
--- NOTE | 2023-12-30 08:36 | W.PN.CD ---
Today's Communication / Plan
-
stop iV lasix
transition to po lasix 80mg po bid
would try to mobilized
Nephrology also following directing diuresis
I will sign off and see again at your request
Impression / Plan
-
Acute on chronic HFpEF - acute on chronic.
- Clearly volume overloaded on exam - Improved since admission, on IV lasix BID
- She was discharged last month on 80 mg orally twice daily
- back to 'Dry' weight ~90kg with contraction alkalosis, will tansition to po lasix
- Heart failure education provided through out hospitalization, we specifically reviewed fluid restriction
-continue tubigrips
-Likely home (return to SNF) in 24-48
AMADO on CKD3b, Nephrology following
Hypervolemic hyponatremia
Hyperkalemia, improved s/p Lokelma, per primary
Complete heart block s/p Medtronic PPM 11/15/2023, stable, followed in outpatient device clinic
CAD s/p CABG - stable w/o chest pain, continue ASA, statin
Prior CVA
Type 2 diabetes mellitus, with hyperglycemia, HgbA1c 8.0%
gout chronic
Subjective:
she is feeling better still short of breath but just waking up. She reports the use of home oxygen
Physical Exam
Vital Signs/Labs
Vital Signs
Temp Pulse Resp BP Pulse Ox
97.4 F 69 18 138/63 93
12/30/23 03:48 12/30/23 03:48 12/30/23 03:48 12/30/23 03:48 12/30/23 03:48
12/29/23 12/30/23 12/31/23
06:59 06:59 06:59
Actual Weight 92.334 kg 90.435 kg
12/30/23 06:11
12/30/23 06:11
Magnesium 1.9 mg/dl (1.6-2.3) 12/29/23 06:36
Physical Exam
Constitutional: No acute distress
Cardiovascular: Rhythm & rate is regular, JVD pressure is normal, Systolic murmur absent, Diastolic murmur absent, Rhythm/rate is irregular and Pedal edema present (tubigrips in place)
Respiratory: Respiratory effort normal, Lungs clear to auscul., Wheeze Absent, Crackles Absent and Rhonchi Absent
Neuro/Psych: AO x 3
Data Reviewed
-
Date of Service: December 30, 2023
[2023-12-30 08:38] LABS: Glucose - Point of Care 242 mg/dl (70-99)
[2023-12-30] MEDS: NOVOLOG FLEXPEN 14 UNITS SC (10:00)
[2023-12-30] MEDS: NOVOLOG FLEXPEN-LOW RESISTANCE 2 UNITS SC (10:00)
[2023-12-30] MEDS: LIDOCAINE 4% PATCH 1 PATCH TOPICAL (10:02)
[2023-12-30] MEDS: ZOLOFT 25 MG PO (10:02)
[2023-12-30] MEDS: ZYLOPRIM 300 MG PO (10:02)
[2023-12-30] MEDS: VITAMIN D3 (cholecalciferol) 25 MCG PO (10:02)
[2023-12-30] MEDS: METAMUCIL, KONSYL 1 PACKET PO (10:02)
[2023-12-30] MEDS: ASPIR LOW (ENTERIC COATED) PO (10:03)
[2023-12-30] MEDS: DELTASONE 10 MG PO (10:03)
[2023-12-30] MEDS: NORVASC 10 MG PO (10:03)
[2023-12-30] MEDS: KLONOPIN 0.5 MG PO (10:03)
[2023-12-30] MEDS: COLACE PO (10:03)
[2023-12-30] MEDS: SENOKOT 8.59999999999999964 MG PO (10:03)
[2023-12-30] MEDS: HEPARIN 5000 UNITS SC (10:05)
[2023-12-30] MEDS: LASIX 80 MG PO (10:05)
--- NOTE | 2023-12-30 10:56 | CM ---
Received TT from attending who stated that patient medically stable and cleared for discharge. Per PT patient is at baseline level of functioning. Placed a call to [facility] and spoke with medical office receptionist who transferred call to their admissions. Spoke with
Dixie who stated that she has to discuss with nursing staff and will return call to .
Plan: Case management will continue to follow and assist with discharge planning/patient cleared to go back to [facility] today.
[2023-12-30 11:00] VITALS: BP 115/93
[2023-12-30] MEDS: LASIX IV (11:29)
--- NOTE | 2023-12-30 11:41 | W.PN.NEPH.PH ---
Today's Communication / Plan
-
s/o
Assessment/Plan
-
Assessment
-AMADO
-CKD3b (1.2-1.5)
-HFpEF decompensated
-mod MS/MR/TR
-hyponatremia
-hyperkalemia
-metabolic alkalosis
-PPM/CHB
-DM2
-CAD
-gout/tophi bilateral elbows
Plan
Cr at baseline
continue lasix
will sign off
-
-
Date of Service: December 30, 2023
CC / HPI / ROS
-
Chief Complaint:
AMADO
History of Present Illness:
cr improving to 1.5 and stable
sodium stable 136
wt decreasing
BP stable
Review of Systems:
sob at rest
no cp
Labs
-
Labs:
WBC 11.1 10^3/uL (4.8-10.8) H 12/30/23 06:11
RBC 3.99 10^6/uL (4.20-5.40) L 12/30/23 06:11
Hgb 10.1 g/dL (12.0-16.0) L 12/30/23 06:11
Hct 32.4 % (37.0-47.0) L 12/30/23 06:11
Plt Count 328 10^3/uL (130-400) 12/30/23 06:11
Sodium 136 mmol/L (135-145) 12/30/23 06:11
Potassium 3.5 mmol/L (3.5-5.1) 12/30/23 06:11
Chloride 84 mmol/L (98-107) L 12/30/23 06:11
Carbon Dioxide 43 mmol/L (22-30) H 12/30/23 06:11
BUN 70 mg/dl (7-17) H 12/30/23 06:11
Creatinine 1.5 mg/dL (0.6-1.0) H 12/30/23 06:11
eGFR 35.01 12/30/23 06:11
Glucose 278 mg/dl (70-99) H 12/30/23 06:11
Calcium 9.2 mg/dl (8.4-10.2) 12/30/23 06:11
Albumin 4.4 g/dl (3.5-5.0) 12/26/23 14:51
Physical Exam
-
Vital Signs:
Vital Signs
Temp Pulse Resp BP Pulse Ox
98.1 F 67 18 153/70 95
12/30/23 07:00 12/30/23 10:03 12/30/23 07:00 12/30/23 10:03 12/30/23 07:00
Cardiovascular:: Regular rate and rhythm
Respiratory:: Bilateral: Coarse
Lung Excursion:: Normal
Abdomen:: Nontender and Soft
Bowel Sounds:: Normal
Extremity Edema:: +2: Bilateral:
--- NOTE | 2023-12-30 11:46 | CM ---
Received TT from attending who stated that patient is stable for discharge. Pl[facility] call to [facility] [phone] and spoke with Felipa her RN who confirmed that she can return today. #For Report [phone] and fax# [phone].
Medical necessity completed along with tranfer sheet. OOHDNR on chart for attending to sign. He is aware.
[facility]
Plan: Case management will continue to follow and assist with discharge planning/back to [facility] as patient is medically stable per attaending.
[2023-12-30 12:09] LABS: Glucose - Point of Care 263 mg/dl (70-99)
--- NOTE | 2023-12-30 12:09 | W.HF.CON ---
Heart Failure
- LV Function
Left ventricular function study result: LV Ejection fraction >40% (ECHO 08/29/23)
Ejection Fraction Percentage: 60-65
- ARNI
Patient already on ARNI: No
Heart Failure ARNI Not Indicated: LV Ejection Fraction >/= 40%
- ACEI/ARB
Patient already on ACEI/ARB: No
Heart Failure ACEI/ARB Not Indicated: LV Ejection Fraction > 40%
- Beta Rina
Patient already on Evidence Based Beta Rina: No
Heart Failure Evidence Based Beta Rnia Not Indicated: LV Ejection Fraction > 40%
- Mineralocorticord Receptor Antagonist
Patient already on MRA: No
Heart Failure MRA Not Indicated: LV Ejection Fraction > 40%
- SGLT-2 Inhibitor
Patient already on SGLT-2 Inhibitor: No
Heart Failure SGLT-2 Inhibitor Not Indicated: LV Ejection Fraction >40%
- NYHA CHF Classification
NYHA CHF Classification Level: Class III - Symptoms w/ min exertion, interferes w/ nml daily activity
- ACC/AHA Stage
ACC/AHA Stage: Stage C: Symptomatic Heart Failure
--- NOTE | 2023-12-30 12:19 | W.PN.HOSP.TC ---
Addendum entered and electronically signed by Richie Sabillon MD 01/01/24 15:10:
[id number]
Addendum entered and electronically signed by Richie Sabillon MD 12/30/23 12:24:
new insulin dosing
steroid taper
Original Note:
Today's Communication/Plan
-
Switch to oral Lasix, 80 mg twice daily
Follow-up cardiology outpatient
Follow-up BMP in 1 week with PCP
Assessment / Plan
Assessment / Plan
General: Comfortable, Conversant and Obese; No Pain or Chills
HEENT: NormoCephalic, Anicteric, Moist mucous membranes, PERRLA, [place] Conjunctivae, No Ptosis and Oxygen (2 L NC)
Respiratory: Wheezes (With poor inspiratory effort); No Rales or Rhonchi
Cardiac: S1/S2, Regular Rhythm, Peripheral Edema (Chronic +2 nonpitting) and JVD; No Murmur, Rub or Gallop
Breast: Deferred by me
GI: Soft, Non Tender, Non Distended, Normal Bowel Sounds and No Hepatosplenomegaly
Rectal: Deferred by Provider
Genito-urinary: Deferred by me
Musculoskeletal: No Clubbing, No Cyanosis, Edema, Left Lower Extremity (+2 nonpitting) and Edema, Right Lower Extremity (+2 nonpitting); No Edema, Left Upper Extremity or Edema, Right Upper Extremity
Skin: Warm and Dry; No Rash
Neuro: AO x 3 (To name, place, place of living, year, recent history), Nonfocal/grossly intact, Cranial Nerves Intact and No Sensory Deficits; No Slurred Speech, Facial Droop or Tremors
Psych: Calm
#AMADO
# Most likely cardiorenal
� 80 mg IV Lasix twice daily - switch to 80 mg oral lasix bid
-S/p Diamox
� Renal consulted
� Monitor urine output
�Patient would like medical treatment options at this time, does have a POLST that has comfort measures listed
#Hyperkalemia
-resolved
� Most likely secondary to AMADO
� Lokelma given
� No EKG changes
� Continue monitoring with IV diuresis
� BMP f/u outpatient
-resumed home po potassium
# Acute on chronic� hypoxic respiratory failure likely from acute on chronic HFpEF +/- atelectasis
� Switch to 80 mg IV Lasix twice daily - switch to 80mg bid oral lasix
� Nephrology consulted
-Wean as tolerated
-Strict I&O
-Daily weight
-Fluid restriction
-Cardiology consulted
#Leukocytosis
-most likely steroids
-monitor with weaning of steroids - unclear why patient is on it but to be dced 2/5 regardless after 10 days as per med rec; can further wean by 2/2 to 10mg daily
#Hyponatremia
2/2 to volume overload
-monitor with diuresis
# Anemia of chronic disease
-No active bleeding
-Continue to monitor
# Severe symptomatic bradycardia
-EKG with impression of SINUS RHYTHM WITH 2ND DEGREE A-V BLOCK WITH 2:1 A-V CONDUCTION
�Dual-chamber pacemaker implantation 11/15
#CAD s/p prior CABG
-aspirin, statin continued
#Essential hypertension
-continue Norvasc, Lasix, avoid hypotension
�Hold all nephrotoxic agents
#Diabetes mellitus type 2 on insulin
-Continue home regimen
-sliding scale
-CHO diet
-appreciate DM educator
#HLD
-statin continued
#anxiety
-clonazepam continued
-Sertraline
#GOUT
-allopurinol, colchicine continued
#GERD
_PPI continued
#History of CVA in the past and dysphagia
-peg tube removed
- She is on a pur�ed ,and thin liquid diet at [facility]
# DVT prophylaxis
-Heparin subcu
# CODE STATUS
-Full code
More than 30 minutes spent in discharge including
Final examination of the patient
Summarizing hospital stay
Instructions for continuing care to all relevant caregivers
Preparation of discharge records, prescriptions, and referral forms
Total time spent (35 in minutes):
Anticipated Discharge: Today
Subjective/Interval History
-
Date of Service: December 30, 2023
feels better, switch to PO lasix
Objective Data
-
Labs:
Laboratory Results
12/30/23
06:11
WBC 11.1 H
Hgb 10.1 L
Hct 32.4 L
Plt Count 328
Sodium 136
Potassium 3.5
Chloride 84 L
Carbon Dioxide 43 H
BUN 70 H
Creatinine 1.5 H
Glucose 278 H
Calcium 9.2
Vital Signs:
Vital Signs
Temp Pulse Resp BP Pulse Ox
98.1 F 67 18 115/93 97
12/30/23 11:00 12/30/23 11:00 12/30/23 11:00 12/30/23 11:00 12/30/23 11:00
I&O
12/29/23 12/30/23 12/31/23
06:59 06:59 06:59
Intake Total 750 / 750 500 / 500
Output Total 2700 / 2700 3500 / 3500
Balance -1950 / -1950 -3000 / -3000
Review of Systems
-
History Source: Patient
All other systems: Not reviewed unless documented
Physical Exam
-
General: No Apparent Distress
HEENT: Moist Mucous Membranes
Respiratory: Non Labored Respirations; Negative Wheezes or Accessory Resp Muscle Use
Cardiac: Regular Rhythm and S1/S2
Skin: Warm
Neuro: AO x 3
Psych: Calm
Data Reviewed
-
Diagnostic Radiology: Image personally visualized and interpreted and Report Reviewed by me
Labs: Labs Reviewed by me
--- NOTE | 2023-12-30 12:23 | W.DS.TRANS ---
DC Summary - [employer]
-
Discharge Instructions:
Sleep Apnea Risk High
Discharge Diagnosis/Procedures Acute on chronic HFpEF - acute on chronic.
Diet Low Cholesterol,Low Fat,Restrict fluids to 48 oz
Activity As tolerated
Blood Work bmp in 1 week with pcp
Instructions: *CBC Heart Failure Instructions
Stand-Alone Forms:
Changes to Home Medications: Yes
Discharge Medications:
DC Medications w/original date entered in [facility]
dextran 70-hypromellose eye drops in a dropperette (Artificial Tears (PF) drops in a dropperette) 1 drp BOTH EYES Q8HPRN PRN dry eyes 08/16/21
lidocaine 4 % topical patch 1 patch topical DAILY lower back Pain 08/26/23
bisacodyl 10 mg rectal suppository (Dulcolax (bisacodyl)) 10 mg NM [id number] PRN if no bm by 3rd day 09/09/23
clonazepam 0.5 mg tablet 0.5 mg PO BID Mental Health/Anxiety 09/09/23
magnesium hydroxide 400 mg/5 mL oral suspension (Milk of Magnesia) 30 ml PO HSPRN PRN if no bm x 2 days 09/09/23
sodium phosphates 19 gram-7 gram/118 mL enema (Fleet Enema) 118 ml NM DAILYPRN PRN if no bm x 4 days 09/09/23
acetaminophen 325 mg capsule (Tylenol) 650 mg PO Q6HPRN PRN mild pain/fever >100 10/12/23
amlodipine 10 mg tablet 10 mg PO DAILY Blood Pressure 10/12/23
aspirin 81 mg tablet,delayed release 81 mg PO DAILY Blood Clot Prevention/Tx 10/12/23
atorvastatin 40 mg tablet 40 mg PO HS High Cholesterol 10/12/23
cholecalciferol (vitamin D3) 25 mcg (1,000 unit) tablet (Vitamin D3) 25 mcg PO DAILY Supplement 10/12/23
dextromethorphan-guaifenesin 10 mg-100 mg/5 mL oral syrup 10 ml PO Q4HPRN PRN cough 10/12/23
docusate sodium 100 mg capsule 100 mg PO BID Constipation 10/12/23
famotidine 20 mg tablet (Acid Controller) 20 mg PO HS Gastrointestinal Issue 10/12/23
sennosides 8.6 mg tablet (senna) 8.6 mg PO BID Constipation 10/12/23
sertraline 25 mg tablet 25 mg PO DAILY Depression 10/12/23
allopurinol 300 mg tablet 300 mg PO DAILY Gout 11/15/23
menthol 1 applic topical HS bilateral shoulder pain 11/15/23
potassium chloride 20 mEq tablet,extended release(part/cryst) 20 meq PO BID #60 tabs 11/22/23
psyllium 1 packet PO DAILY Constipation 12/26/23
Insulin Glargine Lantus [Lantus] 38 units As Directed mls/hr SC HS 12/30/23
furosemide 80 mg tablet 80 mg PO BID AT 0800,1600 #0 tabs 12/30/23
insulin aspart U-100 100 unit/mL (3 mL) subcutaneous pen (Novolog FlexPen U-100 Insulin aspart) 18 unit (0.18 mL) SC AC #0 mL 12/30/23
miconazole nitrate 2 % topical powder (Miconazorb AF) 1 applic topical BIDPRN PRN RASH #0 grams 12/30/23
prednisone 10 mg tablet 5 mg PO BID x3 more days then dc please #7 tabs 12/30/23
Home Medication Changes
Insulin Glargine Lantus [Lantus] 38 units As Directed mls/hr SC HS 12/30/23
furosemide 80 mg tablet 80 mg PO BID AT 0800,1600 #0 tabs 12/30/23
insulin aspart U-100 100 unit/mL (3 mL) subcutaneous pen (Novolog FlexPen U-100 Insulin aspart) 18 unit (0.18 mL) SC AC #0 mL 12/30/23
miconazole nitrate 2 % topical powder (Miconazorb AF) 1 applic topical BIDPRN PRN RASH #0 grams 12/30/23
prednisone 10 mg tablet 5 mg PO BID x3 more days then dc please #7 tabs 12/30/23
Pending Results: No
--- NOTE | 2023-12-30 12:31 | W.DS.TRANS ---
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
-
Discharge Instructions:
Sleep Apnea Risk High
Discharge Diagnosis/Procedures Acute on chronic HFpEF - acute on chronic.
Diet Low Cholesterol,Low Fat,Restrict fluids to 48 oz
Activity As tolerated
Blood Work bmp in 1 week with pcp
Instructions: *CBC Heart Failure Instructions
Stand-Alone Forms:
Changes to Home Medications: Yes
Discharge Medications:
DC Medications w/original date entered in [facility]
dextran 70-hypromellose eye drops in a dropperette (Artificial Tears (PF) drops in a dropperette) 1 drp BOTH EYES Q8HPRN PRN dry eyes 08/16/21
lidocaine 4 % topical patch 1 patch topical DAILY lower back Pain 08/26/23
bisacodyl 10 mg rectal suppository (Dulcolax (bisacodyl)) 10 mg MD [id number] PRN if no bm by 3rd day 09/09/23
clonazepam 0.5 mg tablet 0.5 mg PO BID Mental Health/Anxiety 09/09/23
magnesium hydroxide 400 mg/5 mL oral suspension (Milk of Magnesia) 30 ml PO HSPRN PRN if no bm x 2 days 09/09/23
sodium phosphates 19 gram-7 gram/118 mL enema (Fleet Enema) 118 ml MD DAILYPRN PRN if no bm x 4 days 09/09/23
acetaminophen 325 mg capsule (Tylenol) 650 mg PO Q6HPRN PRN mild pain/fever >100 10/12/23
amlodipine 10 mg tablet 10 mg PO DAILY Blood Pressure 10/12/23
aspirin 81 mg tablet,delayed release 81 mg PO DAILY Blood Clot Prevention/Tx 10/12/23
atorvastatin 40 mg tablet 40 mg PO HS High Cholesterol 10/12/23
cholecalciferol (vitamin D3) 25 mcg (1,000 unit) tablet (Vitamin D3) 25 mcg PO DAILY Supplement 10/12/23
dextromethorphan-guaifenesin 10 mg-100 mg/5 mL oral syrup 10 ml PO Q4HPRN PRN cough 10/12/23
docusate sodium 100 mg capsule 100 mg PO BID Constipation 10/12/23
famotidine 20 mg tablet (Acid Controller) 20 mg PO HS Gastrointestinal Issue 10/12/23
sennosides 8.6 mg tablet (senna) 8.6 mg PO BID Constipation 10/12/23
sertraline 25 mg tablet 25 mg PO DAILY Depression 10/12/23
allopurinol 300 mg tablet 300 mg PO DAILY Gout 11/15/23
menthol 1 applic topical HS bilateral shoulder pain 11/15/23
potassium chloride 20 mEq tablet,extended release(part/cryst) 20 meq PO BID #60 tabs 11/22/23
psyllium 1 packet PO DAILY Constipation 12/26/23
furosemide 80 mg tablet 80 mg PO BID AT 0800,1600 #0 tabs 12/30/23
insulin aspart U-100 100 unit/mL (3 mL) subcutaneous pen (Novolog FlexPen U-100 Insulin aspart) 14 unit (0.14 mL) SC AC #15 mL 12/30/23
insulin glargine 100 unit/mL (3 mL) subcutaneous pen (Lantus Solostar U-100 Insulin) 35 unit (0.35 mL) SC QPM #15 mL 12/30/23
miconazole nitrate 2 % topical powder (Miconazorb AF) 1 applic topical BIDPRN PRN RASH #0 grams 12/30/23
prednisone 10 mg tablet 5 mg PO BID x3 more days then dc please #7 tabs 12/30/23
Home Medication Changes
furosemide 80 mg tablet 80 mg PO BID AT 0800,1600 #0 tabs 12/30/23
insulin aspart U-100 100 unit/mL (3 mL) subcutaneous pen (Novolog FlexPen U-100 Insulin aspart) 14 unit (0.14 mL) SC AC #15 mL 12/30/23
insulin glargine 100 unit/mL (3 mL) subcutaneous pen (Lantus Solostar U-100 Insulin) 35 unit (0.35 mL) SC QPM #15 mL 12/30/23
miconazole nitrate 2 % topical powder (Miconazorb AF) 1 applic topical BIDPRN PRN RASH #0 grams 12/30/23
prednisone 10 mg tablet 5 mg PO BID x3 more days then dc please #7 tabs 12/30/23
Pending Results: No
--- NOTE | 2023-12-30 14:00 | PTCARENOTE ---
Patient ready for discharge. Removed IV. OOHDNR Signed by MD. Discharge Instructions provided to EMS Transport.
[2023-12-30] MEDS: NOVOLOG FLEXPEN 18 UNITS SC (14:08)
[2023-12-30] MEDS: NOVOLOG FLEXPEN-LOW RESISTANCE 3 UNITS SC (14:08)
== END 2023-12-30 14:57 | DRG 291 ==
LOC: 3 WEST ACU 19:25
PROVIDERS: Clinical Nurse Specialist Family Health; Physician Assistant; ADMITTING PHYSICIAN Hospitalist; ATTENDING PHYSICIAN Internal Medicine; CONSULT PHYSICIAN Specialist; EMERGENCY PHYSICIAN Emergency Medicine; FAMILY PHYSICIAN Family Medicine; OTHER PHYSICIAN Internal Medicine
DX: I13.0 Hypertensive heart and chronic kidney disease with heart failure and stage 1 through stage 4 chronic kidney disease, or unspecified chronic kidney disease (principal); I50.33 Acute on chronic diastolic (congestive) heart failure; J96.21 Acute and chronic respiratory failure with hypoxia; N17.9 Acute kidney failure, unspecified; N18.4 Chronic kidney disease, stage 4 (severe); E87.1 Hypo-osmolality and hyponatremia; F03.A4 Unspecified dementia, mild, with anxiety; F03.A3 Unspecified dementia, mild, with mood disturbance; E87.3 Alkalosis; Z11.52 Encounter for screening for COVID-19; E11.22 Type 2 diabetes mellitus with diabetic chronic kidney disease; E87.5 Hyperkalemia; E11.65 Type 2 diabetes mellitus with hyperglycemia; E78.00 Pure hypercholesterolemia, unspecified; I25.10 Atherosclerotic heart disease of native coronary artery without angina pectoris; K21.9 Gastro-esophageal reflux disease without esophagitis; M1A.9XX1 Chronic gout, unspecified, with tophus (tophi); F32.A Depression, unspecified; E66.9 Obesity, unspecified; Z66 Do not resuscitate; Z68.37 Body mass index [BMI] 37.0-37.9, adult; D63.8 Anemia in other chronic diseases classified elsewhere
CPT/HCPCS: 36415; 71045; 80048; 80053; 81003; 82947; 82962; 83735; 83880; 84443; 84484; 84550; 85025; 85027; 87070; 87502; 87811; 93005; 94640; 96374; 96375; 97162; 97166; 99285

== ENCOUNTER → 2024-01-10 10:36 | Outpatient (REF) | payer MEDICARE, OTHER, SELFPAY ==
[2024-01-10 11:39] LABS: Blood Urea Nitrogen 45 mg/dl (7-17); Calcium 9.3 mg/dl (8.4-10.2); Carbon Dioxide 35 mmol/L (22-30); Chloride 99 mmol/L (98-107); Glucose 112 mg/dl (70-99); Potassium 4.1 mmol/L (3.5-5.1); Sodium 140 mmol/L (135-145); eGFR 38.03
== END ==
LOC: OLABWHC 10:36
PROVIDERS: ATTENDING PHYSICIAN Family Medicine
DX: E87.6 Hypokalemia (principal); E87.1 Hypo-osmolality and hyponatremia; N18.32 Chronic kidney disease, stage 3b
CPT/HCPCS: 36415; 80048

== ENCOUNTER → 2024-01-18 10:51 | Outpatient (REF) | payer MEDICARE, OTHER, SELFPAY ==
[2024-01-18 11:31] LABS: Hematocrit 33.9 % (37.0-47.0); Hemoglobin 10.1 g/dL (12.0-16.0); Mean Corp Hgb Conc. 29.8 g/dL (33.0-37.0); Mean Corpuscular Hgb 25.7 pg (27.0-31.0); Mean Corpuscular Volume 86.3 fL (81.0-99.0); Mean Platelet Volume 10.9 fL (7.4-10.4); Platelet Count 242 10^3/uL (130-400); Red Blood Cell Count 3.93 10^6/uL (4.20-5.40); Red Cell Dist. Width 16.7 % (11.5-14.5); White Blood Cell Count 8.5 10^3/uL (4.8-10.8)
[2024-01-18 11:51] LABS: Blood Urea Nitrogen 36 mg/dl (7-17); Calcium 8.8 mg/dl (8.4-10.2); Carbon Dioxide 34 mmol/L (22-30); Chloride 99 mmol/L (98-107); Glucose 74 mg/dl (70-99); Potassium 4.2 mmol/L (3.5-5.1); Sodium 139 mmol/L (135-145); eGFR 45.76
== END ==
LOC: OLABWHC 10:51
PROVIDERS: ATTENDING PHYSICIAN Family Medicine
DX: E87.6 Hypokalemia (principal); N18.32 Chronic kidney disease, stage 3b; E87.1 Hypo-osmolality and hyponatremia
CPT/HCPCS: 36415; 80048; 85027

== ENCOUNTER → 2024-01-23 10:37 | Outpatient (REF) | payer MEDICARE, OTHER, SELFPAY ==
[2024-01-23 12:57] LABS: Mean Corp Hgb Conc. 30.3 g/dL (33.0-37.0); Mean Corpuscular Hgb 25.2 pg (27.0-31.0); Mean Corpuscular Volume 83.1 fL (81.0-99.0); Mean Platelet Volume 11.7 fL (7.4-10.4); Platelet Count 363 10^3/uL (130-400); Red Blood Cell Count 3.97 10^6/uL (4.20-5.40); Red Cell Dist. Width 17.2 % (11.5-14.5); White Blood Cell Count 7.3 10^3/uL (4.8-10.8)
[2024-01-23 13:33] LABS: Blood Urea Nitrogen 44 mg/dl (7-17); Calcium 9.1 mg/dl (8.4-10.2); Chloride 89 mmol/L (98-107); Glucose 100 mg/dl (70-99); Potassium 4.1 mmol/L (3.5-5.1); Sodium 135 mmol/L (135-145); eGFR 45.76
[2024-01-23 13:42] LABS: Carbon Dioxide 38 mmol/L (22-30)
== END ==
LOC: OLABWHC 10:37
PROVIDERS: ATTENDING PHYSICIAN Family Medicine
DX: E87.6 Hypokalemia (principal); I50.33 Acute on chronic diastolic (congestive) heart failure; N18.30 Chronic kidney disease, stage 3 unspecified
CPT/HCPCS: 36415; 80048; 85027

== ENCOUNTER → 2024-01-25 09:47 | Outpatient (REF) | payer MEDICARE, OTHER, SELFPAY ==
[2024-01-25 10:45] LABS: Blood Urea Nitrogen 44 mg/dl (7-17); Carbon Dioxide 38 mmol/L (22-30); Chloride 89 mmol/L (98-107); Glucose 106 mg/dl (70-99); Potassium 3.9 mmol/L (3.5-5.1); Sodium 135 mmol/L (135-145); eGFR 41.57
== END ==
LOC: OLABWHC 09:47
PROVIDERS: ATTENDING PHYSICIAN Family Medicine
DX: E87.6 Hypokalemia (principal); N18.32 Chronic kidney disease, stage 3b; E87.1 Hypo-osmolality and hyponatremia
CPT/HCPCS: 36415; 80048

== ENCOUNTER → 2024-01-27 08:54 | Outpatient (REF) | payer MEDICARE, OTHER, SELFPAY ==
[2024-01-27 10:10] LABS: Hematocrit 33.2 % (37.0-47.0); Hemoglobin 10.2 g/dL (12.0-16.0); Mean Corp Hgb Conc. 30.7 g/dL (33.0-37.0); Mean Corpuscular Hgb 25.2 pg (27.0-31.0); Mean Platelet Volume 10.9 fL (7.4-10.4); Platelet Count 376 10^3/uL (130-400); Red Blood Cell Count 4.05 10^6/uL (4.20-5.40); White Blood Cell Count 8.5 10^3/uL (4.8-10.8)
[2024-01-27 10:20] LABS: ALT (SGPT) < 10 U/L (0-35); AST (SGOT) 20 U/L (14-36); Albumin 3.2 g/dl (3.5-5.0); Alkaline Phosphatase 110 U/L (38-126); Blood Urea Nitrogen 49 mg/dl (7-17); Calcium 9.4 mg/dl (8.4-10.2); Chloride 84 mmol/L (98-107); Glucose 83 mg/dl (70-99); Potassium 3.8 mmol/L (3.5-5.1); Sodium 136 mmol/L (135-145); Total Bilirubin 0.4 mg/dl (0.2-1.3); Total Protein 5.8 g/dl (6.3-8.2); eGFR 41.57
[2024-01-27 10:32] LABS: Carbon Dioxide 39 mmol/L (22-30)
== END ==
LOC: OLABWHC 08:54
PROVIDERS: ATTENDING PHYSICIAN Family Medicine
DX: E87.6 Hypokalemia (principal); J96.10 Chronic respiratory failure, unspecified whether with hypoxia or hypercapnia; N18.32 Chronic kidney disease, stage 3b; E11.29 Type 2 diabetes mellitus with other diabetic kidney complication
CPT/HCPCS: 36415; 80053; 85027

== ENCOUNTER → 2024-02-10 09:51 | Outpatient (REF) | payer MEDICARE, OTHER, SELFPAY ==
[2024-02-10 10:25] LABS: Blood Urea Nitrogen 54 mg/dl (7-17); Calcium 9.2 mg/dl (8.4-10.2); Carbon Dioxide 38 mmol/L (22-30); Chloride 89 mmol/L (98-107); Glucose 202 mg/dl (70-99); Potassium 3.8 mmol/L (3.5-5.1); Sodium 135 mmol/L (135-145); eGFR 41.57
[2024-02-10 10:30] LABS: Hematocrit 35.4 % (37.0-47.0); Hemoglobin 10.7 g/dL (12.0-16.0); Mean Corp Hgb Conc. 30.2 g/dL (33.0-37.0); Mean Corpuscular Hgb 24.8 pg (27.0-31.0); Mean Corpuscular Volume 81.9 fL (81.0-99.0); Platelet Count 273 10^3/uL (130-400); Red Blood Cell Count 4.32 10^6/uL (4.20-5.40); Red Cell Dist. Width 17.4 % (11.5-14.5); White Blood Cell Count 10.3 10^3/uL (4.8-10.8)
== END ==
LOC: OLABWHC 09:51
PROVIDERS: ATTENDING PHYSICIAN Family Medicine
DX: E11.29 Type 2 diabetes mellitus with other diabetic kidney complication (principal); I50.33 Acute on chronic diastolic (congestive) heart failure; N18.30 Chronic kidney disease, stage 3 unspecified
CPT/HCPCS: 36415; 80048; 85027

== ENCOUNTER → 2024-02-14 11:02 | Outpatient (REF) | payer MEDICARE, OTHER, SELFPAY ==
[2024-02-14 11:25] LABS: Blood Urea Nitrogen 62 mg/dl (7-17); Calcium 9.1 mg/dl (8.4-10.2); Carbon Dioxide 38 mmol/L (22-30); Chloride 89 mmol/L (98-107); Glucose 166 mg/dl (70-99); Potassium 3.6 mmol/L (3.5-5.1); Sodium 135 mmol/L (135-145); eGFR 38.03
== END ==
LOC: OLABWHC 11:02
PROVIDERS: ATTENDING PHYSICIAN Family Medicine
DX: N18.30 Chronic kidney disease, stage 3 unspecified (principal); E87.6 Hypokalemia
CPT/HCPCS: 36415; 80048

== ENCOUNTER 2024-02-16 15:09 | Inpatient (IN) | payer MEDICARE, OTHER, SELFPAY ==
[2024-02-16] VITALS (11 sets, daily range): BP systolic 105–147; BP diastolic 47–86; PULSE 2–78; BMI 36.7; BMI 36.5
[2024-02-16 12:41] LABS: % Basophils 0.6 % (0-2); % Eosinophils 1.8 % (0-6); % Immature Granulocytes 0.4 % (0-0.5); % Lymphocytes 11.7 % (20.5-51.1); % Monocytes 11.8 % (1.7-9.3); % Neutrophils 73.7 % (42.2-75.2); Absolute Basophils 0.1 10^3/uL (0-0.2); Absolute Eosinophils 0.2 10^3/uL (0-0.7); Absolute Neutrophils 6.2 10^3/uL (1.4-6.5); Hematocrit 37.9 % (37.0-47.0); Hemoglobin 11.6 g/dL (12.0-16.0); Mean Corp Hgb Conc. 30.6 g/dL (33.0-37.0); Mean Corpuscular Hgb 25.1 pg (27.0-31.0); Mean Platelet Volume 10.1 fL (7.4-10.4); Nucleated Red Blood Cells % 0 %; Platelet Count 269 10^3/uL (130-400); Red Blood Cell Count 4.62 10^6/uL (4.20-5.40); Red Cell Dist. Width 17.5 % (11.5-14.5); White Blood Cell Count 8.4 10^3/uL (4.8-10.8)
[2024-02-16 12:55] LABS: NT-proBNP 2480 pg/ml
--- NOTE | 2024-02-16 12:55 | ED.GENMED ---
History of Present Illness
General
Chief Complaint: Breathing Problem
Source: patient, records and ambulance crew
Time Seen by Provider: 02/16/24 12:40
Travel History
Have you had any contact with someone who has COVID-19?: No
Do you have any symptoms of coronavirus? Fever > 100 degrees, chills, cough, shortness of breath, sore throat, loss of taste or smell, muscle aches, or headache?: No
History of Present Illness
History of Present Illness:
78-year-old female with past medical history of dementia, CHF, CAD, hypertension, hyperlipidemia, diabetes presenting the emergency department via EMS from [facility] after staff noticed increased respiratory difficulty and a
pulse ox within the low 80s. EMS placed patient on a nonrebreather and gave [address] to the emergency department with response of patient's pulse ox going into the upper 90s. Patient states she still continues to feel short of breath,
cough and an increased respiratory rate. Remaining history is somewhat limited secondary to patient's baseline dementia. Unclear as to how long her symptoms have been ongoing for. Patient was unaware if she had any fevers.
Past History
Past History
ED Past Medical History: CAD, CHF, CVA, HTN, Hypercholesterolemia, IDDM, Psychiatric (Anxiety, depression) and Other (Dementia, Covid 15 Apr 2020, intellectual disability)
ED Past Surgical History: Cardiac, Cholecystectomy, Orthopedic and Other (Hernia)
Social History
Tobacco: Non-smoker
Alcohol: None
Drug: None
Personal:
Living: halfway
Employment: Retired
Family History
Family History: Other (Reviewed and Noncontributory)
Review of Systems
Review of Systems
All Other Systems: ROS reviewed and negative except as documented in HPI and ROS
Phy Exam
Physical Exam
Physical Exam:
GENERAL: Alert , increased respiratory rate, coughing during the exam, audible upper airway gurgling
EYE: Clear conjunctiva
NECK: Supple
ENT: o/p clr, mmm.
CARDIAC: Regular rate and rhythm .
LUNGS: Tachypneic, accessory muscle use, audible wheeze, rhonchorous lung sounds throughout
ABDOMEN: Soft, without focal tenderness, no r/g, no cvat
NEUROLOGICAL: Alert and oriented to place and self but not time
SKIN: Warm and dry, skin intact.
MUSCULOSKELETAL: Nonpitting ankle edema bilateral, well perfused.
PSYCH: Normal and appropriate interaction.
Scores
Heart Failure Risk
Heart Failure Risk Score: Yes
History of Stroke or TIA: Yes
History of intubation for respiratory distress: No
Heart rate on ED arrival >/= 110: No
SaO2 <90% on arrival on room air: Yes
HR >/=110 during 3min walk test (or too ill to perform test): Yes
ECG has acute ischemic changes: No
Urea >/=12mmol/L (BUN 33.6mg/dL): Yes
Serum CO2>/=35mmol/L: No
Troponin I or T elevated to [place] Level (0.4mg/dL): No
NT-proBNP >/=5,000ng/L (5,000pg/ml): No
HF Risk Score: 5
Admission Status: VERY HIGH RISK 39.8% Consider admission to hospital
Heart Score for Chest Pain Patients
STEMI patient?: Not applicable
Withdrawal Assessment of Alcohol
Withdrawal Assessment Completed?: Not applicable
Course
Orders/Labs/Results
Orders:
Orders
02/16/24 12:14
Electrocardiogram (*1) Urgent
Reason for Study: Shortness of Breath
02/16/24 12:23
Cardiac Monitoring- Treatment ONCE
IV Insert/Care/Rem.- Treatment PRN
O2 Therapy [RESP] Urgent
Titrate/Wean O2 to maintain O2 sat greater than (%): 93
Special Instructions: TO MAINTAIN CONTINOUS PULSE OX SATS > OR = 93%
Pulse Ox/spot Check [RESP] Urgent
Quantity: 1
Special Instructions: ON ROOM AIR
02/16/24 12:24
Basic Metabolic Panel Urgent
Complete Blood Count/With Diff Urgent
NT-proBNP Urgent
02/16/24 12:51
Ipratropium/Albuterol Sulfate [Duoneb] 3 ml INH R NOW ONE
MethylPREDNISolone PF [Solu-Medrol Pf] 60 mg IV NOW STA
CR Chest Portable - 1 View Urgent
Comment:
Reason For Exam: respiratory distress
Reason Study Needs to be Portable: Patient Unstable
02/16/24 12:53
Furosemide [Lasix] 40 mg IV NOW STA
02/16/24 13:33
ABG [Arterial Blood Gas] Urgent
%Oxygen/Room Air: 85%
02/16/24 13:56
COVID-19 Antigen Urgent
Source: Nasal Swab
02/16/24 13:59
Bipap [RESP] Urgent
Patient to use own unit?: No
Inspiratory Pressure (cm H2O): 14
Expiratory Pressure (cm H2O): 6
02/16/24 14:01
Sputum Culture [Respiratory Culture/Gram Stain] Routine
INES Source: Sputum
Specimen Description:
Incentive Spirometry [Rx Incentive Spirometry] [RESP] Routine
Frequency: q1h while awake
02/16/24 14:02
Admit/Transfer Patient As Directed
Co-Sign Provider:
Level of Care: Inpatient admission
Assign to:: IMU- Intermediate Care
Physician / Group: olamide schreiber
Diagnosis: hypoxic resp failure 2/2 asp RML pna
Reason for Hospitalization: hypoxic resp failure 2/2 asp RML pna
Expected length of stay greater than two midnights?: Yes
ELOS- Estimated Length of Stay in days: 4
I certify the patient meets the requirements for IP care: Yes
Code Status As Directed
Resuscitation Status: Do not resuscitate
Reached after discussion with pt or family/Healthcare POA: Yes
DNR Bracelet Application ONCE
02/16/24 14:09
PULMONARY CONSULT Routine
Consulting Provider: Bhargavi Mantilla
Was physician already notified: Yes
Reason for consult: hypoxic resp failure likely asp pna
02/16/24 16:00
Cefepime HCl [Maxipime] 1,000 mg IV Q12H
VANCOMYCIN Pharmacy to Dose [VANCOCIN Pharmacy to Dose] 1 each Pharmacy To Prepare [Call Pharmacy To Prepare] 0 ml IV PER PROTOCOL
02/19/24 11:00
DC Protocol for Telemetry ONCE
Abnormal Lab Results
02/16/24 02/16/24
12:24 13:33
Hgb 11.6 L g/dL
(12.0-16.0)
MCH 25.1 L pg
(27.0-31.0)
MCHC 30.6 L g/dL
(33.0-37.0)
RDW 17.5 H %
(11.5-14.5)
Absolute Lymphs (auto) 1.0 L 10^3/uL
(1.2-3.4)
Absolute Monos (auto) 1.0 H 10^3/uL
(0.1-0.6)
Lymphocytes % 11.7 L %
(20.5-51.1)
Monocytes % 11.8 H %
(1.7-9.3)
pCO2 74 H* mmHg
(32-35)
HCO3 43.8 H* mmol/L
(21-28)
ABG O2 Sat (Measured) 98.1 H %
(94-98)
Sodium 133 L mmol/L
(135-145)
Chloride 90 L mmol/L
(98-107)
Carbon Dioxide 34 H mmol/L
(22-30)
BUN 59 H mg/dl
(7-17)
Creatinine 1.3 H mg/dL
(0.6-1.0)
Glucose 249 H mg/dl
(70-99)
02/16/24 12:24
02/16/24 12:24
Vital Signs
Initial and Last Documented VS:
Initial Vital Signs
Temp Pulse Resp BP Pulse Ox
98.3 F 82 30 146/78 92
02/16/24 12:10 02/16/24 12:10 02/16/24 12:10 02/16/24 12:10 02/16/24 12:10
Last Documented Vital Signs
Temp Pulse Resp BP Pulse Ox
98.3 F 75 31 141/86 93
02/16/24 12:10 02/16/24 14:00 02/16/24 14:00 02/16/24 14:00 02/16/24 14:00
Mold Filler And Drainer consulted with Physician
Mold Filler And Drainer consulted with physician?: Yes
Name of Physician Consulted: Rossana
MDM/Problems Addressed
Differential Diagnosis Includes:
Viral syndrome, pneumonia, COVID/flu, CHF exacerbation, aspiration
MDM/Problems Addressed:
78-year-old female presenting emergency department for evaluation of respiratory distress. Treated with a nonrebreather and DuoNeb en route with some improvement however patient remains tachypneic with accessory muscle use and despite being on 10 L
her oxygen is 90 to 92%. Will place on mid flow for the time being with a low threshold to increase this to BiPAP. Will treat with additional DuoNeb and Solu-Medrol. Based off record review patient had a similar presentation back at the end of
November into early December and was in a CHF exacerbation treated with Lasix. I will order an additional 40 mg of Lasix IV given this history. Plan to admit
Chronic conditions affecting care: CAD and Cardiomyopathy
Acute Exacerbation and/or Progression of Chronic Illness: Cardiomyopathy
*Radiology
Radiology exam reviewed: preliminary read by ED provider (Vascular congestion without signs of pneumonia)
*Pulse Oximetry
Patient hypoxic: yes
*EKG
Interpreted by ED Provider?: Yes
Heart Rate: 78
Rate: normal
Rhythm: av sequential
*Finish Mixer Interpretation
Rate: normal
Heart Rate: 75
Rhythm: av sequential
*Critical Care Note
Total Time (30-74mins, 75-104mins- exclusive of procedures): 30
comment:
Critical care statement: A total of 30 minutes of critical care time was provided for this patient. This includes management of unstable vital signs, evaluation of the patient at bedside, reviewing the patient's pertinent medical records, discussion
with consultants, review of old EKGs and review of pertinent medical records. This time with separate from time utilized to perform the aforementioned documented procedures
Data Reviewed
Review of Other/Old Records Reveals: Labs, Records, Radiology Studies and Discharge Summary
Source: patient, records and ambulance crew
Patient Management
Discussion with other providers: Hospitalist
Escalation/DeEscalation of care consider admission/obs:
Notified hospitalist team who accepts for continued evaluation and treatment of respiratory distress secondary to CHF exacerbation
Based off patient's ABG evaluation decision was made to start her on BiPAP. Hospitalist team was notified and agrees with plan
ED Attending Note
-
Portions of this chart may have been created with voice recognition software.� Occasional wrong word or��sound alike� substitutions may have occurred due to the inherent limitations of voice recognition software.
Discharge Plan
Departure
Patient Disposition: Admit
Date of Disposition: 02/16/24
Time of Disposition: 13:14
Presentation/result/management discussed w/ accepting MD/DO: Hospitalist
Discharge Problem:
Acute respiratory distress, Acute exacerbation of CHF (congestive heart failure), CKD (chronic kidney disease)
Prescriptions:
No Action
Artificial Tears (PF) 1 EACH dropperette
1 drp BOTH EYES Q8HPRN PRN (Reason: dry eyes)
lidocaine 4 % Adhesive Patch,Medicated
1 patch TOPICAL DAILY
Rx Instructions:
apply to lower back
magnesium hydroxide [Milk of Magnesia] 400 mg/5 mL Suspension
30 ml PO HSPRN PRN (Reason: if no bm x 2 days)
bisacodyl [Dulcolax (bisacodyl)] 10 mg Suppository
10 mg NJ [id number] PRN (Reason: if no bm by 3rd day)
Fleet Enema 19-7 gram/118 mL Enema
118 ml [place] DAILYPRN PRN (Reason: if no bm x 4 days)
clonazepam 0.5 MG tablet
0.5 mg PO BID
atorvastatin 40 mg Tablet
40 mg PO HS
sennosides [senna] 8.6 mg Tablet
8.6 mg PO BID
aspirin 81 mg Tablet,Delayed Release (Dr/Ec)
81 mg PO DAILY
amlodipine 10 mg Tablet
10 mg PO DAILY
docusate sodium 100 mg Capsule
100 mg PO BID
sertraline 25 mg Tablet
25 mg PO DAILY
cholecalciferol (vitamin D3) [Vitamin D3] 25 mcg (1,000 unit) Tablet
25 mcg PO DAILY
famotidine [Acid Controller] 20 MG tablet
20 mg PO HS
acetaminophen [Tylenol] 325 MG capsule
650 mg PO Q6HPRN PRN (Reason: mild pain/fever >100)
menthol Gel
1 applic TOPICAL HS
allopurinol 300 MG tablet
300 mg PO DAILY
potassium chloride 20 mEq Tablet,Er Particles/Crystals
20 meq PO BID Qty: 60 0RF
psyllium Packet
1 packet PO DAILY
insulin glargine [Lantus Solostar U-100 Insulin] 100 unit/mL (3 mL) insulin pen
35 unit SC QPM Qty: 15 0RF
ipratropium-albuterol [DuoNeb] 0.5 mg-3 mg(2.5 mg base)/3 mL Solution For Nebulization
3 ml INHALATION R BID
insulin lispro [Humalog U-100 Insulin] 100 unit/mL Solution
0 sliding scale dose SC AC
Rx Instructions:
151-200=2units, 201-250=4units, 251-300=6units, 301-350=8units
Balmex Adult Care 11.3 % Cream
1 applic TOPICAL BID
miconazole nitrate [Miconazorb AF] 2 % powder
1 applic topical BIDPRN PRN (Reason: b/l groin)
furosemide 80 mg tablet
80 mg PO DAILY
Interventions
Interventions:
*Risk Screen - Suicide Last Done: 02/16/24 12:10
*General Assessment Last Done: 02/16/24 12:10
*Neglect/Abuse Screening Last Done: 02/16/24 12:10
ED- Cardiac Assessment Last Done: 02/16/24 13:12
ED- Pulmonary Assessment Last Done: 02/16/24 13:12
[2024-02-16 12:57] LABS: Blood Urea Nitrogen 59 mg/dl (7-17); Calcium 9.4 mg/dl (8.4-10.2); Carbon Dioxide 34 mmol/L (22-30); Chloride 90 mmol/L (98-107); Estimated Creatinine Clearance 35 ml/min; Glucose 249 mg/dl (70-99); Sodium 133 mmol/L (135-145); eGFR 41.57
[2024-02-16] MEDS: SOLU-MEDROL PF 60 MG IV (13:00)
[2024-02-16] MEDS: DUONEB 3 ML INH ×3 (13:00→19:58)
[2024-02-16] MEDS: LASIX 40 MG IV (13:01)
--- NOTE | 2024-02-16 13:27 | HPS.HSE ---
Addendum entered and electronically signed by Arnie Campoverde MD 02/16/24 15:36:
Pt symptomatically hypoxic with sob.
Pt seen independently and agree with CERAMICS ARTIST note
Lungs diffuse wet rhonchi, no wheeze, no rales
CV reg
Ext no edema
Neuro cognitive impairment
Imp: Acute hypoxic respiratory failure
probable RML PNA (my read, awaiting official read)
Covid - Neg
Concern for aspiration PNA, ?swallowing dysfunction
P:empiric abx
consult Pulm
oxygen support
once mentation at baseline will need swallowing eval
Original Note:
Family Physician
-
Family Physician:
Chief Complaint
-
Shortness of breath, cough productive white, chills
History of Present Illness
78-year-old female from [facility] with hypoxia pulse ox in the low 80s. She was given DuoNeb via nonrebreather by EMS with pulse ox improving into the upper 90s. She complains of shortness of breath. She reports she has had
a cough for approximately 1 week productive in color and chills for several days. She has history of dysphagia is on a all ground but with pur�ed soup and thin liquid diet at the senior living. She denies current headache, sore throat, runny nose,
chest pain, palpitations, abdominal pain, nausea, vomiting, diarrhea, urinary symptoms. She does have history of memory impairment she is currently 94% on mid flow 8 L.
She had a recent admission 01/21or heart failure exacerbation improved with IV Lasix p.o. Lasix was switched to 80 mg twice daily and Diamox prior to discharge. Patient has past medical history of CHF preserved EF, chronic hypoxic
respiratory failure, dementia, anemia of chronic disease, bradycardia, dual-chamber pacemaker 11/16/2019, CAD status post CABG, HTN, DM2, HLD, CKD, COVID-19 infection March 2020, anxiety, gout, GERD, CVA with prior PEG tube with removal, chronic
dysphagia on pur�ed and thin liquid diet at senior living
Medical History
Past Medical History
Past Medical History: Reports Other
Additional Past Medical History:
CAD
CHF
CVA (2008),
GERD,
HTN,
Hypercholesterolemia,
IDDM,
Renal Failure (CKD 3)
Anxiety/depression
Obesity
Aspiration PNA October 2023 recommended pur�ed diet
Past Surgical History: Reports Other
Additional Past Surgical History:
Pacemaker November 15, 2023 secondary to heart block
CABG
Social History
Tobacco: Non-smoker
Alcohol: None
Drug: None
Personal: Single
Living: Senior Living
Family History
Family History: Other (Reports father of brain aneurysm states mother during a choking episode)
Allergies / Home Medications
Allergies reflects when Allergies were last updated in [employer].
Home Medications with original date entered in [employer]
Allergy/Medication List:
Allergies
Allergy/AdvReac Type Severity Reaction Status Date / Time
adhesive Allergy BANDAIDS-REDNESS Verified 12/26/23 14:38
AND RASH
hydromorphone [From Dilaudid] Allergy CONFUSION Verified 12/26/23 14:38
Home Medications
dextran 70-hypromellose eye drops in a dropperette (Artificial Tears (PF) drops in a dropperette) 1 drp BOTH EYES Q8HPRN PRN dry eyes 08/16/21
lidocaine 4 % topical patch 1 patch topical DAILY lower back Pain 08/26/23
bisacodyl 10 mg rectal suppository (Dulcolax (bisacodyl)) 10 mg [place] [id number] PRN if no bm by 3rd day 09/09/23
clonazepam 0.5 mg tablet 0.5 mg PO BID Mental Health/Anxiety 09/09/23
insulin glargine 100 unit/mL (3 mL) subcutaneous pen (Lantus Solostar U-100 Insulin) 30 unit SC HS Diabetes 09/09/23
insulin lispro 100 unit/mL subcutaneous pen (Humalog KwikPen (U-100) Insulin) 8 sliding scale dose SC AC Diabetes 09/09/23
magnesium hydroxide 400 mg/5 mL oral suspension (Milk of Magnesia) 30 ml PO HSPRN PRN if no bm x 2 days 09/09/23
sodium phosphates 19 gram-7 gram/118 mL enema (Fleet Enema) 118 ml [place] DAILYPRN PRN if no bm x 4 days 09/09/23
acetaminophen 325 mg capsule (Tylenol) 650 mg PO Q6HPRN PRN mild pain/fever >100 10/12/23
amlodipine 10 mg tablet 10 mg PO DAILY Blood Pressure 10/12/23
aspirin 81 mg tablet,delayed release 81 mg PO DAILY Blood Clot Prevention/Tx 10/12/23
atorvastatin 40 mg tablet 40 mg PO HS High Cholesterol 10/12/23
cholecalciferol (vitamin D3) 25 mcg (1,000 unit) tablet (Vitamin D3) 25 mcg PO DAILY Supplement 10/12/23
dextromethorphan-guaifenesin 10 mg-100 mg/5 mL oral syrup 10 ml PO Q4HPRN PRN cough 10/12/23
docusate sodium 100 mg capsule 100 mg PO BID Constipation 10/12/23
famotidine 20 mg tablet (Acid Controller) 20 mg PO HS Gastrointestinal Issue 10/12/23
sennosides 8.6 mg tablet (senna) 8.6 mg PO BID Constipation 10/12/23
sertraline 25 mg tablet 25 mg PO DAILY Mental Health/Anxiety 10/12/23
allopurinol 300 mg tablet 300 mg PO DAILY Gout 11/15/23
menthol 1 applic topical HS bilateral shoulder pain 11/15/23
amoxicillin 500 mg-potassium clavulanate 125 mg tablet (Augmentin) 1 tab PO BID #5 tabs 11/22/23
potassium chloride 20 mEq tablet,extended release(part/cryst) 20 meq PO BID #60 tabs 11/22/23
furosemide 80 mg tablet 120 mg PO BID@0800,1600 12/26/23
prednisone 20 mg tablet 20 mg PO BID 12/26/23
psyllium 1 packet PO DAILY 12/26/23
Review of Systems
-
History Source: Patient
A 12 point ROS was completed and negative except as noted: Yes
Constitutional: Reports Chills; Denies Fever or Fatigue
EENT: Denies Sore Throat or Runny Nose
Respiratory: Reports Cough and Trouble Breathing
Cardiac: Denies Chest Pain, Diaphoresis, Palpitations or Syncope
Abdomen/GI: Denies Abdominal Pain, Nausea, Vomiting, Diarrhea, Constipated, Bloody Stools or Black Stools
: Denies Dysuria, Frequency, Flank Pain, Incontinence, Difficulty Voiding or Urgency
Musculoskeletal: Denies Joint Pain or Edema
Skin: Denies Itching or Rash
Neurological: Denies Dizzy, Headache or Weakness
Endocrine: Reports No Symptoms
Hematologic/Lymphatic: Reports No Symptoms
Psych: Reports Calm
Physical Exam
Vital Signs
Vital Signs
Temp Pulse Resp BP Pulse Ox
98.3 F 77 43 146/78 94
02/16/24 12:10 02/16/24 13:01 02/16/24 13:00 02/16/24 13:01 02/16/24 13:00
Physical Exam
General: Comfortable, Conversant and Chills; No Fever
HEENT: NormoCephalic, Anicteric, PERRLA, [place] Conjunctivae, No Ptosis and Oxygen (8 L high flow)
Respiratory: Rhonchi (Bilaterally throughout but increased right middle to right lung base some slight expiratory wheeze); No Rales
Cardiac: S1/S2 and Regular Rhythm; No Murmur, Rub, Gallop or Peripheral Edema
Breast: Deferred by me
GI: Soft, Non Tender, Non Distended, Normal Bowel Sounds and No Hepatosplenomegaly
Rectal: Deferred by Provider
Genito-urinary: Deferred by me
Musculoskeletal: No Clubbing, No Cyanosis and No Edema
Skin: Warm and Dry; No Rash
Neuro: AO x 3, No Motor Deficits, Nonfocal/grossly intact, Cranial Nerves Intact and No Sensory Deficits; No Slurred Speech, Facial Droop or Tremors
Psych: Calm
Laboratory Results
-
02/16/24 12:24
02/16/24 12:24
Laboratory Results
Total Bilirubin Cancelled 02/16/24 12:24
AST Cancelled 02/16/24 12:24
ALT Cancelled 02/16/24 12:24
Alkaline Phosphatase Cancelled 02/16/24 12:24
Data Reviewed
-
Diagnostic Radiology: Report Reviewed by me
Lab Data: Labs Reviewed by me
Impression/Plan
-
Impression/plan:
Admit to IMU
#Acute hypoxic respiratory failure 2/2 right middle lobe PNA concern for aspiration/ covid pending
#History chronic dysphagia
BNP 2480, 88 kg <90kg on 12/30/2023
Reported high 80% on room air, 92% on high flow 8 L
ABG pCO2 74, bicarb 44 will start BiPAP
-Consult pulmonary
-Sputum culture, check COVID swab
-Speech swallow eval
-IV cefepime, IV Vanco
#Chronic heart failure preserved EF
I/O, daily weights
-Continue Lasix 80 mg twice daily
#CKD stage IIIb
Creat 1.3 appears baseline
Follow BMP
# Anemia of chronic disease
Hgb 11.6
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
# Severe symptomatic bradycardia /second-degree AV block hx 12/2023
#CAD s/p prior CABG
-Continue aspirin, statin
#Essential hypertension
146/78
-continue Norvasc, Lasix, avoid hypotension
�Hold all nephrotoxic agents
#Diabetes mellitus type 2 on insulin
Accu-Cheks with SSI, check HgbA1c
#HLD
-Continue atorvastatin 40 mg at bedtime
#Anxiety
-Continue clonazepam hold for sedation
-Sertraline
#GOUT
-allopurinol, colchicine continued
#GERD
-PPI continued
#History of CVA in the past and dysphagia
-peg tube removed and passed
- She is on a pur�ed ,and thin liquid diet at senior living
#COVID-19 infection 2019
# DVT prophylaxis
-Heparin subcu
DNR per patient and living will on chart
[2024-02-16 13:46] LABS: B.E. 14.9 mmol/L; O2 Saturation % 98.1 % (94-98); PO2 89 mmHg (83-108); pH 7.38 (7.35-7.45)
[2024-02-16 13:56] LABS: PCO2 74 mmHg (32-35)
[2024-02-16 13:57] LABS: HCO3 43.8 mmol/L (21-28)
[2024-02-16 14:36] LABS: COVID-19 Antigen Negative (Negative)
--- NOTE | 2024-02-16 15:30 | PTCARENOTE ---
Received patient by stretcher from ED on bipap. Trial off of bipap unsuccessful with respiratory d/t RR in the 40s. Patient calm and tolerating bipap, RR 30. VSS. AAOx3. Bed alarm placed for safety. NPO. Closely monitoring patient.
--- NOTE | 2024-02-16 15:52 | CON.PUL ---
Consultation
Consultation Request
Date/Time Consultation Requested: 02/16/24
Date/Time Consultation Performed: 02/16/24
Performing Provider: Annalee
Reason for Consultation: SOB
Medical History
-
History of Present Illness:
Patient is an 78-year-old female with history of untreated suspected YELITZA/OHS, obesity, dementia, sedentary lifestyle, Chronic HFpEF presenting from [facility] with SOB/cough and hypoxemia, reportedly pulse ox in the low 80s at facility.� She
was given DuoNeb via nonrebreather by EMS with pulse ox improving into the upper 90s.� On arrival to ER, ABG with compensated CO2 retention pH 7.38/74. She is placed on BIPAP and admitted to IMU.
She had a recent admission 01/21or heart failure exacerbation improved with IV Lasix.
She has been seen in our office, (last visit 2019) and instructed to have sleep study that she never followed up with. She does not recall this discussion.
Past Medical History
Past Medical History: Other (see list below)
Social History
Tobacco: Non-smoker
Alcohol: None
Drug: None
Allergies / Home Medications
Allergies
Allergy/AdvReac Type Severity Reaction Status Date / Time
adhesive Allergy BANDAIDS-REDNESS Verified 12/26/23 14:38
AND RASH
hydromorphone [From Dilaudid] Allergy CONFUSION Verified 12/26/23 14:38
Home Medications
Medication Instructions Recorded Confirmed Last Taken Type
dextran 70-hypromellose eye drops 1 drp BOTH EYES Q8HPRN PRN dry eyes 08/16/21 02/16/24 Unknown History
in a dropperette (Artificial Tears
(PF) drops in a dropperette)
lidocaine 4 % topical patch 1 patch topical DAILY lower back 08/26/23 02/16/24 Unknown History
Pain
bisacodyl 10 mg rectal suppository 10 mg NV [id number] PRN if no bm by 09/09/23 02/16/24 Unknown History
(Dulcolax (bisacodyl)) 3rd day
clonazepam 0.5 mg tablet 0.5 mg PO BID Mental Health/Anxiety 09/09/23 02/16/24 11/15/23 History
magnesium hydroxide 400 mg/5 mL 30 ml PO HSPRN PRN if no bm x 2 09/09/23 02/16/24 Unknown History
oral suspension (Milk of Magnesia) days
sodium phosphates 19 gram-7 118 ml NV DAILYPRN PRN if no bm x 09/09/23 02/16/24 Unknown History
gram/118 mL enema (Fleet Enema) 4 days
acetaminophen 325 mg capsule 650 mg PO Q6HPRN PRN mild 10/12/23 02/16/24 Unknown History
(Tylenol) pain/fever >100
amlodipine 10 mg tablet 10 mg PO DAILY Blood Pressure 10/12/23 02/16/24 11/15/23 History
aspirin 81 mg tablet,delayed 81 mg PO DAILY Blood Clot 10/12/23 02/16/24 11/15/23 History
release Prevention/Tx
atorvastatin 40 mg tablet 40 mg PO HS High Cholesterol 10/12/23 02/16/24 Unknown History
cholecalciferol (vitamin D3) 25 25 mcg PO DAILY Supplement 10/12/23 02/16/24 11/15/23 History
mcg (1,000 unit) tablet (Vitamin
D3)
docusate sodium 100 mg capsule 100 mg PO BID Constipation 10/12/23 02/16/24 11/15/23 History
famotidine 20 mg tablet (Acid 20 mg PO HS Gastrointestinal Issue 10/12/23 02/16/24 Unknown History
Controller)
sennosides 8.6 mg tablet (senna) 8.6 mg PO BID Constipation 10/12/23 02/16/24 11/15/23 History
sertraline 25 mg tablet 25 mg PO DAILY Depression 10/12/23 02/16/24 11/15/23 History
allopurinol 300 mg tablet 300 mg PO DAILY Gout 11/15/23 02/16/24 11/15/23 History
menthol 1 applic topical HS bilateral 11/15/23 02/16/24 Unknown History
shoulder pain
potassium chloride 20 mEq 20 meq PO BID #60 tabs 11/22/23 02/16/24 Unknown Rx
tablet,extended release(part/cryst)
psyllium 1 packet PO DAILY Constipation 12/26/23 02/16/24 Unknown History
insulin glargine 100 unit/mL (3 35 unit (0.35 mL) SC QPM #15 mL 12/30/23 02/16/24 Unknown Rx
mL) subcutaneous pen (Lantus
Solostar U-100 Insulin)
furosemide 80 mg tablet 80 mg PO DAILY 02/16/24 02/16/24 Unknown History
insulin lispro 100 unit/mL 0 sliding scale dose SC AC 02/16/24 02/16/24 Unknown History
subcutaneous solution (Humalog
U-100 Insulin)
ipratropium 0.5 mg-albuterol 3 mg 3 ml inhalation R BID 02/16/24 02/16/24 Unknown History
(2.5 mg base)/3 mL nebulization
soln
miconazole nitrate 2 % topical 1 applic topical BIDPRN PRN b/l 02/16/24 02/16/24 Unknown History
powder (Miconazorb AF) groin
zinc oxide-vitamin B5-vit E 11.3% 1 applic topical BID alexandro areas 02/16/24 02/16/24 Unknown History
topical cream (Balmex Adult [facility])
Review of Systems
-
History Source: Patient
All other systems: Negative unless noted
Vitals / Labs / Diagnostic Testing
Vital Signs
Temp Pulse Resp BP Pulse Ox
98.3 F 83 40 141/86 97
02/16/24 12:10 02/16/24 15:00 02/16/24 15:43 02/16/24 14:00 02/16/24 15:43
Lab Data
02/16/24 12:24
02/16/24 12:24
Laboratory Results
02/16/24
13:33
pH 7.38
pCO2 74 H*
pO2 89
HCO3 43.8 H*
O2 Delivery Level
Diagnostic Testing:
Physical Exam
-
HEENT: Normocephalic, Anicteric and Moist Mucous Membranes
Cardiovascular: S1/S2 and Regular Rhythm
Respiratory: Clear (overall decreased) and Non-Labored Respirations
GI: Soft and Non Distended
Neurology: Awake, Alert, Oriented, AO x 3 and Other (confused/forgetful)
Skin: Warm and Dry
General: Comfortable and Other (NAD, on BIPAP)
Assessment
-
Patient is an 78-year-old female with history of untreated suspected YELITZA/OHS, obesity, dementia, sedentary lifestyle, Chronic HFpEF presenting from [facility] with SOB/cough and hypoxemia, reportedly pulse ox in the low 80s at facility.� She
was given DuoNeb via nonrebreather by EMS with pulse ox improving into the upper 90s.� On arrival to ER, ABG with compensated CO2 retention pH 7.38/74. She is placed on BIPAP and admitted to IMU.
Acute hypoxic respiratory failure
Baseline use of 2L, placed on 8L midflow in ER
Chronic compensated hypercarbic respiratory failure, on BIPAP
Recent admission 01/21or heart failure exacerbation
Hyponatremia
Hypochloremic metabolic alkalosis
Hyperglycemia
Subacute HFpEF, proBNP 2480
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
Acute hypoxic respiratory insufficiency, admitted 03/27/20
Positive Covid, 03/27/20
Restrictive lung disease/obstructive lung disease
Lifelong nonsmoker
Spirometry-FEV1 850 mL (40%), FVC 42%, 8% BD response
DuoNeb/Pulmicort in outpx
Peripheral Eosinophilia in the past
CAD with h/o CABG 12/2017
Hypertension
Hyperlipidemia
Diabetes-type 2
Chronic renal insufficiency-serum creatinine 1.2-1.4
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
Dysphagia, aspiration risk
Obesity
Suspected sleep disorder breathing
History of mentally challenged
Sedentary lifestyle
Depression
Reflux
Anxiety
Cognitive dysfunction/dementia
DNR
Plan
Hypoxemia noted on arrival, on 8L
She had previously been weaned to 2L at last admission
ABG reviewed wtih chronic compensation but worsened overall, BIPAP now
Continue through night and trial off in AM
Repeat ABG in AM
Reviewed with RT
Asthma/obesity
Prior spirometry indicating mixed obstructive/restrictive pattern.�
She is sedentary with BMI of 36.
DNs prn
Do not forsee need for IV steroids/not wheezing on exam
History of aspiration
Speech eval in past 2018- Patient judged to be at elevated risk for aspiration given impulsivity, reduced breathing/swallowing coordination, respiratory compromise requiring supplemental O2, prior hx of dysphagia.�
Recommend cautious intake of DYS I/NTL w/ strict aspiration precautions, meds whole/crushed w/ applesauce and supervision w/ intake d/t impulsivity.
VSE reviewed with signs of aspiration
Report showed deep penetration of nectar thick liquids via cup and mary aspiration of pureed consistencies.
History of PEG placement, which was reversed
She has no obvious infiltrate on CXR this admission
Speech eval if needed
Aspiration precautions
Prior ECHO-stage II DD, moderate MS, moderate PH
Noted h/o CAD s/p CABG Dec 2017
Holter 2020 CONCLUSION: Sinus, average 71 BPM.� Range 41�111 T-pin.� Very rare ectopy.� AV Cecilia noted.
proBNP elevated, suggesting some volume component
IV diuresis per cards
Risk factors assessed for underlying sleep disordered breathing also noted, recommend outpatient PSG/sleep evaluation
Suspect YELITZA/OHS
ABG indicating compensated chronic CO2 retention
Unsure if her baseline cognition will limit PAP use
She has been seen in our office (last visit 2019) and instructed to have sleep study that she never followed up with.
She does not recall this discussion.
Weight loss measures recommended
Obesity contributing to respiratory symptoms
We will follow
Diagnostic Data
CXR 12/26/23- Moderate interstitial pulmonary edema.
Chest X-Ray: 08/26/23- faint R basilar infiltrate. Sternotomy wiring
CXR 08/16/21- No active cardiopulmonary disease. Stable postoperative changes. Stable perihilar interstitial scarring extending into the mid portions of both lungs.
CT Scan: CHEST 08/27/23- LUNGS: There is a consolidative airspace opacity with air bronchograms in the right lower lobe that is suspicious for pneumonia. Trace right pleural fluid is present. There is no pneumothorax. Overall evaluation of the lung
parenchyma is somewhat limited by respiratory motion artifact. The trachea and central airways are patent.
11/24/19 Chest - 1. � Very limited study of the pulmonary arteries. No central pulmonary embolism. Beyond the central pulmonary arteries, the interlobar, segmental and subsegmental arteries are not evaluable.
2. � Severe generalized bronchial disease. In the right lower lobe, near occlusion of the segmental and subsegmental bronchi likely from bronchitis and underlying bronchomalacia.
3. � Multisegment right lower lobe partial collapse and consolidation.
4. � Elsewhere, hypoventilation, linear scarring or atelectasis. No sign of congestive heart failure.
5. � Mild cardiac dilation. Severe atherosclerosis post CABG.
Echo: 08/29/23- Normal biventricular size and systolic function without regional wall motion abnormality. Estimated LVEF 60-65%.�Stage II diastolic dysfunction suggestive of abnormal relaxation and increased�filling pressures.
Moderate mitral stenosis. Mean gradient is 7-8mmHg. Mild to moderate mitral�regurgitation.�Aortic sclerosis without stenosis.�Moderate tricuspid regurgitation. Mildly elevated PASP. Estimated pulmonary�artery pressure of 44 mmHg. Assuming a right
atrial pressure of 8 mmHg.�Compared to 01/18/18: moderate MS and TR are now present. PASP has increased�from 30 mmHg to 44 mmHg.
�
PFT's: Kenji 01/02/18- FEV1 0.85L 48%, FVC 1.0L 42%, ratio 85. Post FEV1 0.92L 52%, no BD response (mixed pattern, mod-severely reduced)
--- NOTE | 2024-02-16 15:56 | PHA.VAN.IN ---
Assessment
- Assessment
Renal Function: Appears similar to baseline
Concomitant Antimicrobials: cefepime
- Previous Dosing Experience
Previous Regimen: Vanc 1000mg Q24H
Date of Regimen: Oct 2019
Provided Trough of: 14 (drawn pre-steady state, prior to 3rd total dose)
Patient's SCR is: Similar to previous dosing experience
Patient's weight is: Decreased compared to previous dosing experience (currently 88kg vs previously ~95 kg)
Plan
- Plan
Initial / Loading Dose: 2000mg - administration pending
Maintenance Regimen: dosing by level
Monitoring: random 02/16 06
MRSA Screen: Ordered per protocol
Given prior experience with quicker accumulation, may not follow population PK
Will start with dosing by level to trend level before scheduling further dosing
Pharmacokinetics Vancomycin I
- -
Patient Age: 78
Patient Sex: Female
Vancomycin Day #: 1
Indication: Pulmonary/Respiratory
Requesting Provider: Dayne Ramos
Pertinent Antimicrobial Allergies:
no pertinent antibiotic allergies
Height / Weight:
Height 5 ft 1 in
Actual Weight 88 kg
Pertinent Past Medical History: BMI ~37, CKD III, DM
- Vital Signs / Lab Results
Temp Pulse Resp BP Pulse Ox
98.3 F 83 40 141/86 97
02/16/24 12:10 02/16/24 15:00 02/16/24 15:43 02/16/24 14:00 02/16/24 15:43
Lab Results - Hematology
02/16/24
12:24
WBC 8.4
Lab Results - Chemistry
02/16/24
12:24
BUN 59 H
Creatinine 1.3 H
Estimated Creat Clear 35
Albumin Cancelled
[2024-02-16] MEDS: STERILE WATER FOR INJECTION 10 ML IV (16:54)
[2024-02-16] MEDS: VANCOCIN 540 MG IV (16:54)
[2024-02-16] MEDS: MAXIPIME 2000 MG IV (16:54)
[2024-02-16] MEDS: LANTUS 0.349999999999999978 UNITS SC (18:32)
[2024-02-16] MEDS: NOVOLOG FLEXPEN-LOW RESISTANCE 5 UNITS SC (18:33)
[2024-02-16 18:43] LABS: Glucose - Point of Care 392 mg/dl (70-99)
[2024-02-16] MEDS: DESENEX/MITRAZOL/ZEASORB 1 APPLIC TOPICAL (20:22)
[2024-02-16] MEDS: MUCINEX 600 MG PO (20:23)
[2024-02-16] MEDS: KLONOPIN 0.5 MG PO (20:23)
[2024-02-16] MEDS: HEPARIN 5000 UNITS SC (20:23)
[2024-02-16] MEDS: COLACE 100 MG PO (20:23)
[2024-02-16] MEDS: SENOKOT 8.59999999999999964 MG PO (20:24)
[2024-02-16] MEDS: LIPITOR 40 MG PO (21:20)
[2024-02-16] MEDS: PEPCID 20 MG PO (21:20)
[2024-02-16 23:56] LABS: Glucose - Point of Care 426 mg/dl (70-99)
[2024-02-17] VITALS (19 sets, daily range): BP systolic 99–131; BP diastolic 47–84; PULSE 2–76; O2SAT 95; BMI 36.5; BMI 35.8
[2024-02-17 00:27] LABS: Glucose 460 mg/dl (70-99)
[2024-02-17] MEDS: NOVOLOG FLEXPEN-LOW RESISTANCE 6 UNITS SC (00:42)
[2024-02-17] MEDS: NOVOLOG FLEXPEN 15 UNITS SC (00:50)
[2024-02-17 03:06] LABS: Glucose - Point of Care 381 mg/dl (70-99)
[2024-02-17 04:23] LABS: % Basophils 0.2 % (0-2); % Immature Granulocytes 0.3 % (0-0.5); % Lymphocytes 9.2 % (20.5-51.1); % Monocytes 5.5 % (1.7-9.3); % Neutrophils 84.8 % (42.2-75.2); Absolute Lymphocytes 0.6 10^3/uL (1.2-3.4); Absolute Monocytes 0.3 10^3/uL (0.1-0.6); Absolute Neutrophils 5.1 10^3/uL (1.4-6.5); Hematocrit 34.3 % (37.0-47.0); Hemoglobin 10.4 g/dL (12.0-16.0); Mean Corp Hgb Conc. 30.3 g/dL (33.0-37.0); Mean Corpuscular Hgb 24.8 pg (27.0-31.0); Mean Corpuscular Volume 81.7 fL (81.0-99.0); Mean Platelet Volume 10.4 fL (7.4-10.4); Nucleated Red Blood Cells % 0 %; Platelet Count 267 10^3/uL (130-400); Red Cell Dist. Width 17.2 % (11.5-14.5)
[2024-02-17 04:39] LABS: Vancomycin Random 22.5 ug/ml
[2024-02-17 04:47] LABS: ALT (SGPT) 16 U/L (0-35); AST (SGOT) 23 U/L (14-36); Albumin 3.8 g/dl (3.5-5.0); Alkaline Phosphatase 104 U/L (38-126); Blood Urea Nitrogen 70 mg/dl (7-17); Calcium 9.4 mg/dl (8.4-10.2); Carbon Dioxide 33 mmol/L (22-30); Chloride 92 mmol/L (98-107); Estimated Creatinine Clearance 30 ml/min; Glucose 364 mg/dl (70-99); Potassium 4.3 mmol/L (3.5-5.1); Sodium 133 mmol/L (135-145); Total Bilirubin 0.4 mg/dl (0.2-1.3); eGFR 35.01
[2024-02-17] MEDS: MAXIPIME 2000 MG IV (05:34)
[2024-02-17] MEDS: STERILE WATER FOR INJECTION 10 ML IV (05:34)
[2024-02-17] MEDS: NOVOLOG FLEXPEN-LOW RESISTANCE 10 UNITS SC (05:42)
[2024-02-17 05:52] LABS: Glucose - Point of Care 314 mg/dl (70-99)
[2024-02-17] MEDS: DUONEB 3 ML INH ×2 (07:11→19:51)
[2024-02-17 08:53] LABS: Glycohemoglobin (HgbA1c) 8.4 % (4.0-5.6)
--- NOTE | 2024-02-17 09:17 | PTOTSP ---
The patient required minimal assist of two to stand and take a few steps to transfer out of bed, which is actually better than her reported baseline of maximal assist of two. No PT needs identified at this time, will sign off.
[2024-02-17] MEDS: ZOLOFT 25 MG PO (09:21)
[2024-02-17] MEDS: MUCINEX 600 MG PO ×2 (09:21→20:26)
[2024-02-17] MEDS: KLONOPIN 0.5 MG PO ×2 (09:21→20:26)
[2024-02-17] MEDS: DESENEX/MITRAZOL/ZEASORB 1 APPLIC TOPICAL ×2 (09:22→20:26)
[2024-02-17] MEDS: ZYLOPRIM 300 MG PO (09:23)
--- NOTE | 2024-02-17 09:23 | PTOTSP ---
Pt lives at [facility] and per chart is a Max A x 2 SPT baseline. This day, pt is Min A for CGA bed mobility and Min A x 2 SPT to bedside chair with handheld assist, set-up grooming for combing hair. Pt is at/better than baseline. No skilled OT services
warranted. Will sign off. RN aware.
[2024-02-17] MEDS: HEPARIN 5000 UNITS SC ×2 (09:24→20:26)
[2024-02-17] MEDS: LASIX 80 MG PO (09:24)
[2024-02-17] MEDS: LIDOCAINE 4% PATCH 1 PATCH TOPICAL (09:27)
[2024-02-17] MEDS: SENOKOT 8.59999999999999964 MG PO ×2 (09:28→20:26)
[2024-02-17] MEDS: METAMUCIL, KONSYL 1 PACKET PO (09:29)
[2024-02-17] MEDS: NORVASC PO (09:29)
[2024-02-17] MEDS: VITAMIN D3 (cholecalciferol) 25 MCG PO (09:30)
[2024-02-17] MEDS: COLACE 100 MG PO ×2 (09:30→20:26)
[2024-02-17] MEDS: ASPIR LOW (ENTERIC COATED) 81 MG PO (09:30)
--- NOTE | 2024-02-17 09:31 | W.PN.PUL3 ---
Today's Communication / Plan
-
Improved off bipap this AM, continue nocturnal and PRN use
Repeat VBG today
DME consult for PAP set up at home, she is also limited in understanding due to her dementia
Can likely transfer out of IMU at this point
Continue diuresis
Wean O2 as tolerated
Encouraged OOB/PT/OT
Assessment
-
Patient is an 78-year-old female with history of untreated suspected YELITZA/OHS, obesity, dementia, sedentary lifestyle, Chronic HFpEF presenting from [facility] with SOB/cough and hypoxemia, reportedly pulse ox in the low 80s at facility.� She
was given DuoNeb via nonrebreather by EMS with pulse ox improving into the upper 90s.� On arrival to ER, ABG with compensated CO2 retention pH 7.38/74. She is placed on BIPAP and admitted to IMU.
Acute hypoxic respiratory failure
Baseline use of 2L, placed on 8L midflow in ER
Chronic compensated hypercarbic respiratory failure, on BIPAP
Recent admission /01/21 for heart failure exacerbation
Hyponatremia
Hypochloremic metabolic alkalosis
Hyperglycemia
Subacute HFpEF, proBNP 2480
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
Acute hypoxic respiratory insufficiency, admitted 03/27/20
Positive Covid, 03/27/20
Restrictive lung disease/obstructive lung disease
Lifelong nonsmoker
Spirometry-FEV1 850 mL (40%), FVC 42%, 8% BD response
DuoNeb/Pulmicort in outpx
Peripheral Eosinophilia in the past
CAD with h/o CABG 12/2017
Hypertension
Hyperlipidemia
Diabetes-type 2
Chronic renal insufficiency-serum creatinine 1.2-1.4
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
Dysphagia, aspiration risk
Obesity
Suspected sleep disorder breathing
History of mentally challenged
Sedentary lifestyle
Depression
Reflux
Anxiety
Cognitive dysfunction/dementia
DNR
Plan
Hypoxemia noted on arrival, on 8L now weaned to 6L
She had previously been weaned to 2L at last admission
ABG reviewed wtih chronic compensation but worsened overall, BIPAP now
Continue through night and PRN
Repeat VBG in AM
Reviewed with RT
Asthma/obesity
Prior spirometry indicating mixed obstructive/restrictive pattern.�
She is sedentary with BMI of 36.
DNs prn
Do not forsee need for IV steroids/not wheezing on exam
History of aspiration
Speech eval in past 2019- Patient judged to be at elevated risk for aspiration given impulsivity, reduced breathing/swallowing coordination, respiratory compromise requiring supplemental O2, prior hx of dysphagia.�
Recommend cautious intake of DYS I/NTL w/ strict aspiration precautions, meds whole/crushed w/ applesauce and supervision w/ intake d/t impulsivity.
VSE reviewed with signs of aspiration
Report showed deep penetration of nectar thick liquids via cup and mary aspiration of pureed consistencies.
History of PEG placement, which was reversed
She has no obvious infiltrate on CXR this admission
Speech eval if needed
Aspiration precautions
Prior ECHO-stage II DD, moderate MS, moderate PH
Noted h/o CAD s/p CABG Dec 2017
Holter 2020 CONCLUSION: Sinus, average 71 BPM.� Range 41�111 T-pin.� Very rare ectopy.� AV Cecilia noted.
proBNP elevated, suggesting some volume component
IV diuresis per cards
Risk factors assessed for underlying sleep disordered breathing also noted, recommend outpatient PSG/sleep evaluation
Suspect YELITZA/OHS
ABG indicating compensated chronic CO2 retention
Unsure if her baseline cognition will limit PAP use
She has been seen in our office (last visit 2019) and instructed to have sleep study that she never followed up with.
She does not recall this discussion.
Weight loss measures recommended
Obesity contributing to respiratory symptoms
DME consult for PAP set up
Outpatient pulm FU recommended
Diagnostic Data
CXR 12/26/23- Moderate interstitial pulmonary edema.
Chest X-Ray: 08/26/23- faint R basilar infiltrate. Sternotomy wiring
CXR 08/16/21- No active cardiopulmonary disease. Stable postoperative changes. Stable perihilar interstitial scarring extending into the mid portions of both lungs.
CT Scan: CHEST 08/27/23- LUNGS: There is a consolidative airspace opacity with air bronchograms in the right lower lobe that is suspicious for pneumonia. Trace right pleural fluid is present. There is no pneumothorax. Overall evaluation of the lung
parenchyma is somewhat limited by respiratory motion artifact. The trachea and central airways are patent.
11/24/19 Chest - 1. � Very limited study of the pulmonary arteries. No central pulmonary embolism. Beyond the central pulmonary arteries, the interlobar, segmental and subsegmental arteries are not evaluable.
2. � Severe generalized bronchial disease. In the right lower lobe, near occlusion of the segmental and subsegmental bronchi likely from bronchitis and underlying bronchomalacia.
3. � Multisegment right lower lobe partial collapse and consolidation.
4. � Elsewhere, hypoventilation, linear scarring or atelectasis. No sign of congestive heart failure.
5. � Mild cardiac dilation. Severe atherosclerosis post CABG.
Echo: 08/29/23- Normal biventricular size and systolic function without regional wall motion abnormality. Estimated LVEF 60-65%.�Stage II diastolic dysfunction suggestive of abnormal relaxation and increased�filling pressures.
Moderate mitral stenosis. Mean gradient is 7-8mmHg. Mild to moderate mitral�regurgitation.�Aortic sclerosis without stenosis.�Moderate tricuspid regurgitation. Mildly elevated PASP. Estimated pulmonary�artery pressure of 44 mmHg. Assuming a right
atrial pressure of 8 mmHg.�Compared to 01/18/18: moderate MS and TR are now present. PASP has increased�from 30 mmHg to 44 mmHg.
�
PFT's: Kenji 01/02/18- FEV1 0.85L 48%, FVC 1.0L 42%, ratio 85. Post FEV1 0.92L 52%, no BD response (mixed pattern, mod-severely reduced)
Subjective Data
-
Date of Service:
Date of Service: February 17, 2024
Chief Complaint: Pulmonary Follow Up
Subjective:
patient seen, no acute events ON
off bipap, sitting in chair, looks improved
still confused with conversation
Objective Data
Data Reviewed
Vital Signs / I&O / Oxygen:
Vital Signs
Temp Pulse Resp BP Pulse Ox
98.4 F 70 20 104/84 95
02/17/24 06:46 02/17/24 09:15 02/17/24 09:15 02/17/24 09:07 02/17/24 09:20
Intake and Output
02/16/24 02/17/24 02/18/24
06:59 06:59 06:59
Intake Total 510 / 510
Output Total 300 / 300
Balance 210 / 210
SaO2 95
Nasal Cannula flow liters per 8
minute
Physical Exam
General: Comfortable and Other (NAD)
HEENT: Normocephalic, Anicteric and Moist Mucous Membranes
Cardiovascular: S1-S2 and Regular Rhythm
Respiratory: Clear and Non-Labored Respirations
GI: Soft, Non Distended and Non Tender
Neurology: Awake, Alert, Oriented, AO x 3 and No Motor Deficits
Skin: Warm, Dry and Good Color
Labs/Micro/Reports
Lab Data
02/17/24 04:02
02/17/24 04:02
Laboratory Results
02/16/24
13:33
pH 7.38
pCO2 74 H*
pO2 89
HCO3 43.8 H*
O2 Delivery Level
Microbiology
02/16/24 19:58 Nose Nasal Screen MRSA (PCR) - Final
MRSA not detected - performed by PCR methodology.
02/16/24 16:57 Nose Nasal Screen MRSA (PCR) - Final
[2024-02-17 11:45] LABS: Glucose - Point of Care 201 mg/dl (70-99)
[2024-02-17] MEDS: NOVOLOG FLEXPEN 3 UNITS SC (12:24)
[2024-02-17] MEDS: NOVOLOG FLEXPEN-LOW RESISTANCE 2 UNITS SC ×2 (12:24→17:30)
--- NOTE | 2024-02-17 12:55 | CM ---
Addendum entered by Ramsey Berman 02/17/24 15:37:
Requested script for Bi-pap obtained from MD and with pt's clinical faxed to [facility] at [phone]
Original Note:
CM following re: discharge planning.
Reviewed pt's chart, met with pt and spoke to [facility] convention services director regarding pt's prior level of functioning and to request Bi-Pap.
Pt is an 78 year old female, admitted with primary dx of Acute hypoxic respiratory failure. Baseline use of 2L, placed on 8L midflow in ER
Per pt's sister, patient is LTC at [facility]. She has a walker but she does not use it. She is primarily in her w/c. Patient's family confirmed that she would like for her to return to [facility] upon medical clearance.
Placed a call to [facility] and spoke to convention services director who confirmed that pt is a LTC resident, on Medicaid 15 day bed hold and she stated that patient self propels in her w/c. She is max assist with all ADLs, max assist of 2 for transfers, min
assist for bed mobility. She is on clear liquids and low fat regarding her diet.
PT/OT singed off as pt is at baseline.
CM consult to order Bi-pap noted. CM spoke to convention services director Jeri at [facility] and she confirmed that Bi-pap will be ordered and will be available to the pt upon her return back.
D/C plan: return back to [facility] SNF for a snf care.
CM will follow with discharge plan updates as hospitalization progresses
--- NOTE | 2024-02-17 13:12 | PTOTSP ---
Dysphagia Evaluation
Patient presents with signs concerning for at least mild-moderate oral dysphagia and has a history of mild oropharyngeal dysphagia on last video swallow study 09/23/2023. She has acute on chronic risk factors for dysphagia (i.e., increased
respiratory support with tachypnea, intellectual disability, dementia, CVA, GERD) but had no signs of aspiration at time of eval. CXR 02/16/2024 without PNA.
Recommend:
1. IDDSI Level 4 (puree), IDDSI Level 0 (thin)
2. Medications - in puree
3. Strategies: supervision with PO intake, upright to 90 degrees, small SINGLE sips/bites, slow rate, breaks for breathing
4. Dysphagia tx at the acute care level. Patient is not at her baseline diet at this time.
--- NOTE | 2024-02-17 16:00 | PTCARENOTE ---
Patient tolerated IDDSI4 diet with thin liquids. Patient aspiration precautions with supervision with meals. Patient can be impulsive. Good appetite. Takes pills whole with applesauce.
[2024-02-17 16:51] LABS: Glucose - Point of Care 249 mg/dl (70-99)
--- NOTE | 2024-02-17 16:52 | W.PN.HOSP.TC ---
Today's Communication/Plan
-
hold abx
continue diuretics
start on diet
Assessment / Plan
Assessment / Plan
#Acute hypoxic respiratory failure
#Possible right lower lobe pneumonia
#History chronic dysphagia
-BNP 2480, 88 kg <90kg on 12/30/2023
-o2 requirement is coming down
-Repeat ABG reviewed and compensated o2 need.
-Sputum culture neg, covid neg.
-Cleared speech eval and on IDDSI diet.
-d/c kay and cefepime - monitor . restart abx if concern of infection
#Chronic heart failure preserved EF
-I/O, daily weights
-Continue Lasix 80 mg twice daily
#CKD stage IIIb
Creat 1.3 appears baseline
Follow BMP
# Anemia of chronic disease
Hgb 11.6
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
# Severe symptomatic bradycardia /second-degree AV block hx 12/2023
#CAD s/p prior CABG
-Continue aspirin, statin
#Essential hypertension
146/78
-continue Norvasc, Lasix, avoid hypotension
�Hold all nephrotoxic agents
#Diabetes mellitus type 2 on insulin
Accu-Cheks with SSI, check HgbA1c
#HLD
-Continue atorvastatin 40 mg at bedtime
#Anxiety
-Continue clonazepam hold for sedation
-Sertraline
#GOUT
-allopurinol, colchicine continued
#GERD
-PPI continued
#History of CVA in the past and dysphagia
-peg tube removed and passed
- She is on a pur�ed ,and thin liquid diet at senior living
#COVID-19 infection 2019
# DVT prophylaxis
-Heparin subcu
Anticipated Discharge: 24 - 48 hours
Subjective/Interval History
-
Date of Service: February 17, 2024
feeling better
o2 stable,
resting comfortable
Objective Data
-
Vital Signs:
Vital Signs
Temp Pulse Resp BP Pulse Ox
98.1 F 72 34 116/77 93
02/17/24 15:14 02/17/24 16:00 02/17/24 16:00 02/17/24 16:00 02/17/24 16:03
I&O
02/16/24 02/17/24 02/18/24
06:59 06:59 06:59
Intake Total 510 / 510 840 / 840
Output Total 300 / 300 580 / 580
Balance 210 / 210 260 / 260
Review of Systems
-
Unable to obtain full review of systems at this time due to: Dementia and Acuity
Physical Exam
-
General: No Apparent Distress
HEENT: Oxygen
Respiratory: Clear to Auscultation; Negative Wheezes
Cardiac: Regular Rhythm and S1/S2; Negative Murmur
GI: Soft, Nontender and Nondistended
Skin: Warm
Neuro: Awake, Alert and No Motor Deficits
Psych: Calm
[2024-02-17] MEDS: NOVOLOG FLEXPEN 5 UNITS SC (17:31)
[2024-02-17] MEDS: LANTUS 0.349999999999999978 UNITS SC (17:37)
[2024-02-17] MEDS: PEPCID 20 MG PO (21:23)
[2024-02-17] MEDS: LIPITOR 40 MG PO (21:23)
[2024-02-17 21:32] LABS: Glucose - Point of Care 258 mg/dl (70-99)
[2024-02-18] VITALS (14 sets, daily range): BP systolic 106–145; BP diastolic 53–91; PULSE 2–76; BMI 35.7
--- NOTE | 2024-02-18 01:49 | PTCARENOTE ---
Patient tolerating BIPAP overnight, HOB elevated and patient repositioned.
[2024-02-18 04:04] LABS: % Basophils 0.6 % (0-2); % Eosinophils 4.7 % (0-6); % Immature Granulocytes 0.3 % (0-0.5); % Lymphocytes 25.6 % (20.5-51.1); % Monocytes 8.1 % (1.7-9.3); % Neutrophils 60.7 % (42.2-75.2); Absolute Basophils 0.1 10^3/uL (0-0.2); Absolute Eosinophils 0.5 10^3/uL (0-0.7); Absolute Lymphocytes 2.5 10^3/uL (1.2-3.4); Absolute Monocytes 0.8 10^3/uL (0.1-0.6); Absolute Neutrophils 5.9 10^3/uL (1.4-6.5); Hematocrit 35.4 % (37.0-47.0); Hemoglobin 10.5 g/dL (12.0-16.0); Mean Corp Hgb Conc. 29.7 g/dL (33.0-37.0); Mean Corpuscular Hgb 24.7 pg (27.0-31.0); Mean Corpuscular Volume 83.3 fL (81.0-99.0); Mean Platelet Volume 10.4 fL (7.4-10.4); Nucleated Red Blood Cells % 0 %; Platelet Count 287 10^3/uL (130-400); Red Blood Cell Count 4.25 10^6/uL (4.20-5.40); Red Cell Dist. Width 17.6 % (11.5-14.5); White Blood Cell Count 9.7 10^3/uL (4.8-10.8)
[2024-02-18 04:26] LABS: ALT (SGPT) 15 U/L (0-35); AST (SGOT) 22 U/L (14-36); Albumin 3.8 g/dl (3.5-5.0); Alkaline Phosphatase 96 U/L (38-126); Blood Urea Nitrogen 73 mg/dl (7-17); Calcium 9.8 mg/dl (8.4-10.2); Carbon Dioxide 36 mmol/L (22-30); Chloride 91 mmol/L (98-107); Estimated Creatinine Clearance 32 ml/min; Glucose 155 mg/dl (70-99); Potassium 3.6 mmol/L (3.5-5.1); Sodium 138 mmol/L (135-145); Total Bilirubin 0.3 mg/dl (0.2-1.3); eGFR 38.03
[2024-02-18] MEDS: DUONEB 3 ML INH ×2 (07:56→20:35)
[2024-02-18] MEDS: NOVOLOG FLEXPEN 5 UNITS SC ×3 (08:55→17:22)
[2024-02-18] MEDS: LASIX 80 MG PO (08:56)
[2024-02-18] MEDS: NOVOLOG FLEXPEN-LOW RESISTANCE SC ×2 (08:56→12:51)
[2024-02-18] MEDS: VITAMIN D3 (cholecalciferol) 25 MCG PO (08:56)
[2024-02-18] MEDS: ZOLOFT 25 MG PO (08:56)
[2024-02-18] MEDS: NORVASC 10 MG PO (08:56)
[2024-02-18] MEDS: KLONOPIN 0.5 MG PO ×2 (08:57→20:08)
[2024-02-18] MEDS: METAMUCIL, KONSYL 1 PACKET PO (08:57)
[2024-02-18] MEDS: LIDOCAINE 4% PATCH 1 PATCH TOPICAL (08:57)
[2024-02-18] MEDS: ASPIR LOW (ENTERIC COATED) 81 MG PO (08:57)
[2024-02-18] MEDS: SENOKOT 8.59999999999999964 MG PO ×2 (08:57→20:07)
[2024-02-18] MEDS: ZYLOPRIM 300 MG PO (08:57)
[2024-02-18] MEDS: MUCINEX 600 MG PO ×2 (08:57→20:07)
[2024-02-18] MEDS: HEPARIN 5000 UNITS SC ×2 (08:57→20:08)
[2024-02-18 08:58] LABS: Glucose - Point of Care 139 mg/dl (70-99)
[2024-02-18] MEDS: COLACE 100 MG PO ×2 (08:58→20:07)
[2024-02-18] MEDS: DESENEX/MITRAZOL/ZEASORB 1 APPLIC TOPICAL ×2 (08:58→20:13)
--- NOTE | 2024-02-18 09:46 | W.PN.HOSP.TC ---
Today's Communication/Plan
-
empiric unasyn
increase iv diuretic dose
f/u cr/weight
Assessment / Plan
Assessment / Plan
#Acute hypoxic respiratory failure
#Possible right lower lobe pneumonia - aspiration pneumonia suspected
#History chronic dysphagia
-BNP 2480, 88 kg <90kg on 12/30/2023
-Repeat ABG reviewed and compensated o2 need.
-Sputum culture neg, covid neg.
-Cleared speech eval and on IDDSI 4 diet.
-Significant cough episode after meals, maintain on empiric Unasyn for now
-Continue wean off oxygen as possible
#Acute on Chronic heart failure preserved EF
-Chest x-ray showing mild pulmonary edema/congestion
-No significant lower extremity edema.
-Trial of IV Lasix 40 g twice daily. monitor weight (not significantly elevated) and renal function
#CKD stage IIIb
-Creat 1.3 appears baseline
-Follow BMP
# Anemia of chronic disease
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
# Severe symptomatic bradycardia /second-degree AV block hx 12/2023
#CAD s/p prior CABG
-Continue aspirin, statin
#Essential hypertension
146/78
-continue Norvasc, Lasix, avoid hypotension
�Hold all nephrotoxic agents
#Diabetes mellitus type 2 on insulin
-add premeal insulin with ISS
#HLD
-Continue atorvastatin 40 mg at bedtime
#Anxiety
-Continue clonazepam hold for sedation
-Sertraline
#GOUT
-allopurinol, colchicine continued
#GERD
-PPI continued
#History of CVA in the past and dysphagia
-peg tube removed and passed
- She is on a pur�ed ,and thin liquid diet at [facility]
#COVID- infection 2019
DVT prophylaxis -Heparin subcu
DNR
02/17 [facility] to contact [facility]'s [facility] Flavia ,[facility]
Anticipated Discharge: 24 - 48 hours
Subjective/Interval History
-
Date of Service: February 18, 2024
Patient having significant cough, unable to take deep. On exam today
Afebrile overnight
Oxygen requirement stabilized around 5 L through nasal cannula
Objective Data
-
Labs:
Laboratory Results
02/18/24
03:23
WBC 9.7
Hgb 10.5 L
Hct 35.4 L
Plt Count 287
Sodium 138
Potassium 3.6
Chloride 91 L
Carbon Dioxide 36 H
BUN 73 H
Creatinine 1.4 H
Glucose 155 H
Calcium 9.8
Total Bilirubin 0.3
AST 22
ALT 15
Alkaline Phosphatase 96
Vital Signs:
Vital Signs
Temp Pulse Resp BP Pulse Ox
98.4 F 71 22 134/82 95
02/18/24 07:45 02/18/24 07:56 02/18/24 07:56 02/18/24 06:00 02/18/24 07:56
I&O
02/17/24 02/18/24 02/19/24
06:59 06:59 06:59
Intake Total 510 / 510 1405 / 1405
Output Total 300 / 300 880 / 880
Balance 210 / 210 525 / 525
Review of Systems
-
Respiratory: Reports Cough and Trouble Breathing; Denies Wheezing
Cardiac: Reports No Symptoms
Abdomen/GI: Reports No Symptoms
Physical Exam
-
General: No Apparent Distress
HEENT: Oxygen
Respiratory: Rhonchi; Negative Wheezes
Cardiac: Regular Rhythm and S1/S2; Negative Murmur
GI: Soft, Nontender and Nondistended
Musculoskeletal: No Edema
Neuro: Awake, Alert and No Motor Deficits
Psych: Calm
[2024-02-18] MEDS: UNASYN IV ×2 (11:00→22:34)
--- NOTE | 2024-02-18 11:09 | W.PN.PUL.V3 ---
Today's Communication / Plan
-
Wean FiO2
BiPAP as tolerated
Diuresis
Could be downgraded to telemetry from a pulmonary perspective
Assessment
-
Patient is an 78-year-old female with history of untreated suspected YELITZA/OHS, obesity, dementia, sedentary lifestyle, Chronic HFpEF presenting from [facility] with SOB/cough and hypoxemia, reportedly pulse ox in the low 80s at facility.� She
was given DuoNeb via nonrebreather by EMS with pulse ox improving into the upper 90s.� On arrival to ER, ABG with compensated CO2 retention pH 7.38/74. She is placed on BIPAP and admitted to IMU.
Acute hypoxic respiratory failure
Baseline use of 2L, placed on 8L midflow in ER
Chronic compensated hypercarbic respiratory failure, on BIPAP
Recent admission /01/21 for heart failure exacerbation
Hyponatremia
Hypochloremic metabolic alkalosis
Hyperglycemia
Subacute HFpEF, proBNP 2480
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
Acute hypoxic respiratory insufficiency, admitted 03/27/20
Positive Covid, 03/27/20
Restrictive lung disease/obstructive lung disease
Lifelong nonsmoker
Spirometry-FEV1 850 mL (40%), FVC 42%, 8% BD response
DuoNeb/Pulmicort in outpx
Peripheral Eosinophilia in the past
CAD with h/o CABG 12/2017
Hypertension
Hyperlipidemia
Diabetes-type 2
Chronic renal insufficiency-serum creatinine 1.2-1.4
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
Dysphagia, aspiration risk
Obesity
Suspected sleep disorder breathing
History of mentally challenged
Sedentary lifestyle
Depression
Reflux
Anxiety
Cognitive dysfunction/dementia
DNR
Plan
Hypoxemia noted on arrival, on 8L now weaned to 5 L
She had previously been weaned to 2L at last admission
ABG reviewed wtih chronic compensation but worsened overall, BIPAP now
Continue BiPAP through night and PRN
Follow VBG as needed
DuoNebs as needed
No indication for steroids at this time
Aspiration precautions
Speech eval in past 2018- Patient judged to be at elevated risk for aspiration given impulsivity, reduced breathing/swallowing coordination, respiratory compromise requiring supplemental O2, prior hx of dysphagia.�
Recommend cautious intake of DYS I/NTL w/ strict aspiration precautions, meds whole/crushed w/ applesauce and supervision w/ intake d/t impulsivity.
VSE reviewed with signs of aspiration
Report showed deep penetration of nectar thick liquids via cup and mary aspiration of pureed consistencies.
History of PEG placement, which was reversed
She has no obvious infiltrate on CXR this admission
Diuresis as tolerated
Cardiology following
Monitor renal function, electrolytes, intake/output, lower extremity edema and weight
Replace electrolytes as needed
Risk factors assessed for underlying sleep disordered breathing also noted, recommend outpatient PSG/sleep evaluation
Suspect YELITZA/OHS
ABG indicating compensated chronic CO2 retention
Unsure if her baseline cognition will limit PAP use
She has been seen in our office (last visit 2019) and instructed to have sleep study that she never followed up with.
She does not recall this discussion.
Weight loss measures recommended
Obesity contributing to respiratory symptoms
DVT prophylaxis-on subcu heparin
GI prophylaxis-on famotidine
Nutrition
Early mobilization/physical therapy
Reviewed with nursing
Could be downgraded to telemetry from a pulmonary perspective
Suspected YELITZA/obesity hypoventilation syndrome
Outpatient pulmonary/sleep disorders follow-up recommended-last seen in the office 2019 and never followed up
Diagnostic Data
CXR 12/26/23- Moderate interstitial pulmonary edema.
Chest X-Ray: 08/26/23- faint R basilar infiltrate. Sternotomy wiring
CXR 08/16/21- No active cardiopulmonary disease. Stable postoperative changes. Stable perihilar interstitial scarring extending into the mid portions of both lungs.
CT Scan: CHEST 08/27/23- LUNGS: There is a consolidative airspace opacity with air bronchograms in the right lower lobe that is suspicious for pneumonia. Trace right pleural fluid is present. There is no pneumothorax. Overall evaluation of the lung
parenchyma is somewhat limited by respiratory motion artifact. The trachea and central airways are patent.
11/24/19 Chest - 1. � Very limited study of the pulmonary arteries. No central pulmonary embolism. Beyond the central pulmonary arteries, the interlobar, segmental and subsegmental arteries are not evaluable.
2. � Severe generalized bronchial disease. In the right lower lobe, near occlusion of the segmental and subsegmental bronchi likely from bronchitis and underlying bronchomalacia.
3. � Multisegment right lower lobe partial collapse and consolidation.
4. � Elsewhere, hypoventilation, linear scarring or atelectasis. No sign of congestive heart failure.
5. � Mild cardiac dilation. Severe atherosclerosis post CABG.
Echo: 08/29/23- Normal biventricular size and systolic function without regional wall motion abnormality. Estimated LVEF 60-65%.�Stage II diastolic dysfunction suggestive of abnormal relaxation and increased�filling pressures.
Moderate mitral stenosis. Mean gradient is 7-8mmHg. Mild to moderate mitral�regurgitation.�Aortic sclerosis without stenosis.�Moderate tricuspid regurgitation. Mildly elevated PASP. Estimated pulmonary�artery pressure of 44 mmHg. Assuming a right
atrial pressure of 8 mmHg.�Compared to 01/18/18: moderate MS and TR are now present. PASP has increased�from 30 mmHg to 44 mmHg.
�
PFT's: Kenji 01/02/18- FEV1 0.85L 48%, FVC 1.0L 42%, ratio 85. Post FEV1 0.92L 52%, no BD response (mixed pattern, mod-severely reduced)
Prior ECHO-stage II DD, moderate MS, moderate PH
Noted h/o CAD s/p CABG Dec 2017
Holter 2020 CONCLUSION: Sinus, average 71 BPM.� Range 41�111 T-pin.� Very rare ectopy.� Flynn noted
Subjective Data
-
Date of Service:
Date of Service: February 18, 2024
Chief Complaint: Pulmonary Follow Up
Subjective:
Tolerating BiPAP, no complaints of worsening shortness of breath, chest pain or abdominal pain
Review of Systems
General: Other (Per HPI)
Objective Data
Data Reviewed
Vital Signs / I&O:
Vital Signs
Temp Pulse Resp BP Pulse Ox
98.4 F 71 22 134/82 95
02/18/24 07:45 02/18/24 07:56 02/18/24 07:56 02/18/24 06:00 02/18/24 07:56
Intake and Output
02/17/24 02/18/24 02/19/24
06:59 06:59 06:59
Intake Total 510 / 510 1405 / 1405
Output Total 300 / 300 880 / 880
Balance 210 / 210 525 / 525
SaO2: 95
Nasal Cannula flow liters per minute: 5
Physical Exam
General: Respiratory Distress (n), Comfortable and Other (NAD)
HEENT: Normocephalic, Anicteric and Moist Mucous Membranes
Cardiovascular: Regular Rhythm
Respiratory: Clear and Non-Labored Respirations
GI: Soft, Non Distended and Non Tender
Neurology: Awake, Alert and No Motor Deficits
Skin: Warm, Dry, Good Color and Cyanosis (n)
Labs/Micro/Reports
Lab Data
02/18/24 03:23
02/18/24 03:23
Microbiology
02/16/24 19:58 Nose Nasal Screen MRSA (PCR) - Final
MRSA not detected - performed by PCR methodology.
02/16/24 16:57 Nose Nasal Screen MRSA (PCR) - Final
[2024-02-18 13:00] LABS: Glucose - Point of Care 127 mg/dl (70-99)
[2024-02-18] MEDS: LASIX 40 MG IV (17:19)
[2024-02-18] MEDS: NOVOLOG FLEXPEN-LOW RESISTANCE 1 UNITS SC (17:20)
[2024-02-18 17:31] LABS: Glucose - Point of Care 172 mg/dl (70-99)
[2024-02-18] MEDS: LANTUS 0.349999999999999978 UNITS SC (19:08)
[2024-02-18 21:19] LABS: Glucose - Point of Care 279 mg/dl (70-99)
[2024-02-18] MEDS: LIPITOR 40 MG PO (21:23)
[2024-02-18] MEDS: NSS (PRESERVATIVE FREE) 0.25 ML IV (21:23)
[2024-02-18] MEDS: ATIVAN 0.5 MG IV (21:23)
[2024-02-18] MEDS: PEPCID 20 MG PO (21:24)
[2024-02-19] VITALS (15 sets, daily range): BP systolic 100–174; BP diastolic 50–92; PULSE 2–68; BMI 35.0
--- NOTE | 2024-02-19 06:25 | PTCARENOTE ---
Pt wore BIPAP throughout the night. Titrated to 12L to maintain SaO2 >88. Pt saturated incontinent of urine, no BM this shift. Pw replaced, hygiene care provided. Call zapien in place
[2024-02-19 06:39] LABS: % Basophils 0.6 % (0-2); % Eosinophils 7.1 % (0-6); % Immature Granulocytes 0.3 % (0-0.5); % Lymphocytes 24.1 % (20.5-51.1); % Monocytes 7.5 % (1.7-9.3); % Neutrophils 60.4 % (42.2-75.2); Absolute Basophils 0.1 10^3/uL (0-0.2); Absolute Eosinophils 0.6 10^3/uL (0-0.7); Absolute Lymphocytes 2.1 10^3/uL (1.2-3.4); Absolute Monocytes 0.7 10^3/uL (0.1-0.6); Absolute Neutrophils 5.4 10^3/uL (1.4-6.5); Hematocrit 35.9 % (37.0-47.0); Hemoglobin 10.6 g/dL (12.0-16.0); Mean Corp Hgb Conc. 29.5 g/dL (33.0-37.0); Mean Corpuscular Hgb 24.5 pg (27.0-31.0); Mean Corpuscular Volume 82.9 fL (81.0-99.0); Nucleated Red Blood Cells % 0 %; Red Blood Cell Count 4.33 10^6/uL (4.20-5.40); Red Cell Dist. Width 17.5 % (11.5-14.5); White Blood Cell Count 8.9 10^3/uL (4.8-10.8)
[2024-02-19 06:44] LABS: ALT (SGPT) 15 U/L (0-35); AST (SGOT) 24 U/L (14-36); Albumin 3.9 g/dl (3.5-5.0); Alkaline Phosphatase 90 U/L (38-126); Blood Urea Nitrogen 73 mg/dl (7-17); Calcium 9.8 mg/dl (8.4-10.2); Carbon Dioxide 39 mmol/L (22-30); Chloride 91 mmol/L (98-107); Estimated Creatinine Clearance 37 ml/min; Glucose 171 mg/dl (70-99); Potassium 3.9 mmol/L (3.5-5.1); Sodium 140 mmol/L (135-145); Total Bilirubin 0.6 mg/dl (0.2-1.3); Total Protein 6.3 g/dl (6.3-8.2); eGFR 45.76
[2024-02-19 07:29] LABS: Mean Platelet Volume 11.1 fL (7.4-10.4); Platelet Count 275 10^3/uL (130-400)
[2024-02-19 07:35] LABS: Glucose - Point of Care 154 mg/dl (70-99)
[2024-02-19] MEDS: DUONEB 3 ML INH ×2 (07:35→20:13)
[2024-02-19] MEDS: LASIX 40 MG IV ×2 (08:24→16:21)
[2024-02-19] MEDS: HEPARIN 5000 UNITS SC ×2 (08:24→20:36)
[2024-02-19] MEDS: DESENEX/MITRAZOL/ZEASORB 1 APPLIC TOPICAL ×2 (08:25→20:37)
[2024-02-19] MEDS: LIDOCAINE 4% PATCH 1 PATCH TOPICAL (08:25)
[2024-02-19] MEDS: ASPIR LOW (ENTERIC COATED) PO (08:33)
[2024-02-19] MEDS: MUCINEX PO (08:34)
[2024-02-19] MEDS: NORVASC PO (08:34)
[2024-02-19] MEDS: KLONOPIN PO (08:34)
[2024-02-19] MEDS: COLACE PO (08:34)
[2024-02-19] MEDS: METAMUCIL, KONSYL PO (08:34)
[2024-02-19] MEDS: ZYLOPRIM PO (08:35)
[2024-02-19] MEDS: SENOKOT PO (08:35)
[2024-02-19] MEDS: VITAMIN D3 (cholecalciferol) PO (08:35)
[2024-02-19] MEDS: ZOLOFT PO (08:35)
--- NOTE | 2024-02-19 09:04 | W.PN.HOSP.TC ---
Addendum entered and electronically signed by Ivan Gabriel MD 02/19/24 10:40:
Radio contacted
- CT head showing new right centrum ovale and left frontal lobe acute/subacute cva
- Neuro consulted
- NPO made in morning, repeat ST eval will be required
- MRI brain w/o contrast ordered
- already on asa/statin - will require addition of plavix likely - await neuro input
CXR showing improvement
Original Note:
Today's Communication/Plan
-
see note
Assessment / Plan
Assessment / Plan
#Acute hypoxic respiratory failure
#Possible right lower lobe pneumonia - aspiration pneumonia suspected
#History chronic dysphagia
-BNP 2480, 88 kg <90kg on 12/30/2023
-Repeat ABG reviewed and compensated o2 need.
-Sputum culture neg, covid neg.
-Significant cough episode after meals, maintain on empiric Unasyn for now
-Patient excessive audible secretion on exam today. Transition back to n.p.o. and VSE ordered
-Repeat chest x-ray ordered
-Previous history of CVA, routine CT head without contrast ordered to rule out any silent cerebral event in last few days.
#Acute on Chronic heart failure preserved EF
-Chest x-ray showing mild pulmonary edema/congestion
-No significant lower extremity edema.
-Weight trending down with empiric trial of IV Lasix 40 mg twice daily continue. renal function stable
#CKD stage IIIb
-Creat 1.3 appears baseline
-Follow BMP
# Anemia of chronic disease
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
# Severe symptomatic bradycardia /second-degree AV block hx 12/2023
#CAD s/p prior CABG
-Continue aspirin, statin
#Essential hypertension
146/78
-continue Norvasc, Lasix, avoid hypotension
�Hold all nephrotoxic agents
#Diabetes mellitus type 2 on insulin
-add premeal insulin with ISS
#HLD
-Continue atorvastatin 40 mg at bedtime
#Anxiety
-Continue clonazepam hold for sedation
-Sertraline
#GOUT
-allopurinol, colchicine continued
#GERD
-PPI continued
#History of CVA in the past and dysphagia
-peg tube removed and passed
-She is on a pur�ed and thin liquid diet at senior care
#COVID-19 infection 2019
DVT prophylaxis -Heparin subcu
DNR
02/18 Sister updated over the phone.
Total time spent : 53 mins
I personally saw and examined the patient.
I have reviewed all diagnostic interpretations and treatment plans as written.
Time includes patient management by me, time spent at the patients bedside, time to review lab and imaging results, discussing patient care, documentation in the medical record, and time spent with the family or caregiver and discussing care plan
with RN/Consultants.
Anticipated Discharge: 24 - 48 hours
Subjective/Interval History
-
Date of Service: February 19, 2024
Patient having excessive secretion
Continues to have cough with phlegm
Oxygen requirement remains high at 8 L through mid flow
Afebrile overnight
Objective Data
-
Labs:
Laboratory Results
02/19/24
06:18
WBC 8.9
Hgb 10.6 L
Hct 35.9 L
Plt Count 275
Sodium 140
Potassium 3.9
Chloride 91 L
Carbon Dioxide 39 H
BUN 73 H
Creatinine 1.2 H
Glucose 171 H
Calcium 9.8
Total Bilirubin 0.6
AST 24
ALT 15
Alkaline Phosphatase 90
Vital Signs:
Vital Signs
Temp Pulse Resp BP Pulse Ox
97.6 F 90 20 149/70 96
02/19/24 07:50 02/19/24 07:50 02/19/24 07:50 02/19/24 07:50 02/19/24 07:50
I&O
02/18/24 02/19/24 02/20/24
06:59 06:59 06:59
Intake Total 1405 / 1405 1380 / 1380
Output Total 880 / 880 1999 / 1999
Balance 525 / 525 -620 / -620
Review of Systems
-
Respiratory: Reports Cough and Trouble Breathing
Cardiac: Reports No Symptoms
Abdomen/GI: Reports No Symptoms
Physical Exam
-
General: No Apparent Distress
HEENT: Oxygen (8L/min midflow)
Respiratory: Rhonchi; Negative Wheezes
Cardiac: Regular Rhythm and S1/S2; Negative Murmur
GI: Soft, Nontender and Nondistended
Musculoskeletal: No Edema
Neuro: Awake, Alert and No Motor Deficits
Psych: Calm
[2024-02-19] MEDS: NOVOLOG FLEXPEN SC ×3 (09:05→17:53)
[2024-02-19] MEDS: NOVOLOG FLEXPEN-LOW RESISTANCE 1 UNITS SC ×2 (09:05→19:44)
[2024-02-19] MEDS: UNASYN IV ×2 (10:27→22:08)
--- NOTE | 2024-02-19 10:33 | W.PN.PUL.V3 ---
Today's Communication / Plan
-
Increase FiO2
Aspiration precautions
Nebulizers
BiPAP as tolerated
Antibiotics
Follow radiographically
Video swallow
Assessment
-
Patient is an 78-year-old female with history of untreated suspected YELITZA/OHS, obesity, dementia, sedentary lifestyle, Chronic HFpEF presenting from [facility] with SOB/cough and hypoxemia, reportedly pulse ox in the low 80s at facility.� She
was given DuoNeb via nonrebreather by EMS with pulse ox improving into the upper 90s.� On arrival to ER, ABG with compensated CO2 retention pH 7.38/74. She is placed on BIPAP and admitted to IMU.
Acute hypoxic respiratory failure
Baseline use of 2L, placed on 8L midflow in ER
Chronic compensated hypercarbic respiratory failure, on BIPAP
Recent admission /01/21 for heart failure exacerbation
Hyponatremia
Hypochloremic metabolic alkalosis
Hyperglycemia
Subacute HFpEF, proBNP 2480
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
Acute hypoxic respiratory insufficiency, admitted 03/27/20
Positive Covid, 03/27/20
Restrictive lung disease/obstructive lung disease
Lifelong nonsmoker
Spirometry-FEV1 850 mL (40%), FVC 42%, 8% BD response
DuoNeb/Pulmicort in outpx
Peripheral Eosinophilia in the past
CAD with h/o CABG 12/2017
Hypertension
Hyperlipidemia
Diabetes-type 2
Chronic renal insufficiency-serum creatinine 1.2-1.4
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
Dysphagia, aspiration risk
Obesity
Suspected sleep disorder breathing
History of mentally challenged
Sedentary lifestyle
Depression
Reflux
Anxiety
Cognitive dysfunction/dementia
DNR
Plan
Respiratory status still tenuous-FiO2 requirements have increased-now on 8 L
She had previously been weaned to 2L at last admission
ABG reviewed wtih chronic compensation but worsened overall, BIPAP now
Continue BiPAP through night and PRN
Follow VBG as needed
DuoNebs as needed
No indication for steroids at this time
Aspiration precautions
Speech eval in past 2018- Patient judged to be at elevated risk for aspiration given impulsivity, reduced breathing/swallowing coordination, respiratory compromise requiring supplemental O2, prior hx of dysphagia.�
Recommend cautious intake of DYS I/NTL w/ strict aspiration precautions, meds whole/crushed w/ applesauce and supervision w/ intake d/t impulsivity.
Previous VSE reviewed with signs of aspiration
Report showed deep penetration of nectar thick liquids via cup and mary aspiration of pureed consistencies.
Repeat video swallow ordered by Dr. Gabriel
History of PEG placement, which was reversed
She has no obvious infiltrate on CXR this admission
Continue diuresis as tolerated
Monitor renal function, electrolytes, intake/output, lower extremity edema and weight
Continue to replace electrolytes as needed
Risk factors assessed for underlying sleep disordered breathing also noted, recommend outpatient PSG/sleep evaluation
Suspect YELITZA/OHS
ABG indicating compensated chronic CO2 retention
Unsure if her baseline cognition will limit PAP use
The patient has been seen in our office (last visit 2019) and instructed to have sleep study that she never followed up with.
She does not recall this discussion.
Weight loss measures recommended
Obesity contributing to respiratory symptoms
DVT prophylaxis-on subcu heparin
GI prophylaxis-on famotidine
Nutrition
Early mobilization/physical therapy
Reviewed with nursing as well as Dr. Gabriel
Suspected YELITZA/obesity hypoventilation syndrome
Outpatient pulmonary/sleep disorders follow-up recommended-last seen in the office 2019 and never followed up
Diagnostic Data
CXR 12/26/23- Moderate interstitial pulmonary edema.
Chest X-Ray: 08/26/23- faint R basilar infiltrate. Sternotomy wiring
CXR 08/16/21- No active cardiopulmonary disease. Stable postoperative changes. Stable perihilar interstitial scarring extending into the mid portions of both lungs.
CT Scan: CHEST 08/27/23- LUNGS: There is a consolidative airspace opacity with air bronchograms in the right lower lobe that is suspicious for pneumonia. Trace right pleural fluid is present. There is no pneumothorax. Overall evaluation of the lung
parenchyma is somewhat limited by respiratory motion artifact. The trachea and central airways are patent.
11/24/19 Chest - 1. � Very limited study of the pulmonary arteries. No central pulmonary embolism. Beyond the central pulmonary arteries, the interlobar, segmental and subsegmental arteries are not evaluable.
2. � Severe generalized bronchial disease. In the right lower lobe, near occlusion of the segmental and subsegmental bronchi likely from bronchitis and underlying bronchomalacia.
3. � Multisegment right lower lobe partial collapse and consolidation.
4. � Elsewhere, hypoventilation, linear scarring or atelectasis. No sign of congestive heart failure.
5. � Mild cardiac dilation. Severe atherosclerosis post CABG.
Echo: 08/29/23- Normal biventricular size and systolic function without regional wall motion abnormality. Estimated LVEF 60-65%.�Stage II diastolic dysfunction suggestive of abnormal relaxation and increased�filling pressures.
Moderate mitral stenosis. Mean gradient is 7-8mmHg. Mild to moderate mitral�regurgitation.�Aortic sclerosis without stenosis.�Moderate tricuspid regurgitation. Mildly elevated PASP. Estimated pulmonary�artery pressure of 44 mmHg. Assuming a right
atrial pressure of 8 mmHg.�Compared to 01/18/18: moderate MS and TR are now present. PASP has increased�from 30 mmHg to 44 mmHg.
�
PFT's: Bryan 01/02/18- FEV1 0.85L 48%, FVC 1.0L 42%, ratio 85. Post FEV1 0.92L 52%, no BD response (mixed pattern, mod-severely reduced)
Prior ECHO-stage II DD, moderate MS, moderate PH
Noted h/o CAD s/p CABG Dec 2017
Holter 2020 CONCLUSION: Sinus, average 71 BPM.� Range 41�111 T-pin.� Very rare ectopy.� Flynn noted
Subjective Data
-
Date of Service:
Date of Service: February 19, 2024
Chief Complaint: Pulmonary Follow Up and Dyspnea Follow Up
Subjective:
Still with some shortness of breath, increased FiO2 requirements, possible aspiration, chest congestion, no complaints of pain
Review of Systems
General: Other (Per HPI)
Objective Data
Data Reviewed
Vital Signs / I&O:
Vital Signs
Temp Pulse Resp BP Pulse Ox
97.6 F 70 24 147/61 92
02/19/24 07:50 02/19/24 08:00 02/19/24 08:00 02/19/24 08:00 02/19/24 08:00
Intake and Output
02/18/24 02/19/24 02/20/24
06:59 06:59 06:59
Intake Total 1405 / 1405 1380 / 1380
Output Total 880 / 880 1999 / 1999
Balance 525 / 525 -620 / -620
SaO2: 92
Nasal Cannula flow liters per minute: 5
Physical Exam
General: Respiratory Distress (n), Comfortable and Other (NAD)
HEENT: Normocephalic, Anicteric and Moist Mucous Membranes
Cardiovascular: Regular Rhythm
Respiratory: Clear, Wheeze (Few expiratory), Crackles (Basilar), Rhonchi (Expiratory), Non-Labored Respirations, Accessory Resp Muscle Use (n) and Stridor (n)
GI: Soft, Non Distended and Non Tender
Neurology: Awake, Alert and No Motor Deficits
Skin: Warm, Good Color, Cyanosis (n), Jaundice (n) and Rash (n)
Labs/Micro/Reports
Lab Data
02/19/24 06:18
02/19/24 06:18
Microbiology
02/16/24 19:58 Nose Nasal Screen MRSA (PCR) - Final
MRSA not detected - performed by PCR methodology.
02/16/24 16:57 Nose Nasal Screen MRSA (PCR) - Final
[2024-02-19 12:14] LABS: Glucose - Point of Care 120 mg/dl (70-99)
[2024-02-19] MEDS: NOVOLOG FLEXPEN-LOW RESISTANCE SC ×2 (12:48→23:55)
--- NOTE | 2024-02-19 13:26 | CON.NEURO ---
Consultation
Order
Date of Consultation: 02/19/24
Reason for Consult: Stroke
CC: ' my legs are weak'
HPI: This is an 78-year-old woman who presented to [facility] on February 16, 2024 with respiratory failure. Neurology consultation was requested for evaluation and management of abnormal CT head findings.
Review of vital signs was notable for hypotension down to 99/49 on 02/17/2024. According to the patient she has had worsening of baseline leg weakness since November 2023. No reports of sensory deficits, change in vision or speech
CT head wo contrast(02/19/2024)-2 new(since 07/2023) areas of decreased attenuation, high in the right centrum semiovale ovale and left frontal lobe, concerning for acute/subacute nonhemorrhagic infarcts. Chronic BL lentiform nucleus, left thalamus,
EC, R caudate infarcts.
Labs: Sodium�133, creatinine 1.3, glucose�2490 460 hemoglobin�11.6, normal WBCs, platelets
EKG: V paced
LDL(12/06/2023) 76, HbA1C(02/17/2024) 8.4
Carotid Doppler US(08/2023)-no evidence of hemodynamically significant stenosis.
PMH: h/o L BG ICH(2008), Mobitz 1 heart block, mixed obstructive/restrictive pulmonary disease, CAD, HTN, DLP, DM, CKD, CHF, gout, moderate MS, moderate PH, chronic dysphagia, SHAWN
PSH: PPM, CABG, PEG(reversed)
SH: resident at 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
FH: father-brain aneurysm
All: hydromorphone,
ROS:Constitutional: Negative. Negative for chills, fever and unexpected weight change.
HENT: Positive for difficulties with swallow
Eyes: Negative. Negative for photophobia, pain and visual disturbance.
Respiratory: Positive for dyspnea
Cardiovascular: Negative for chest pain, palpitations and leg swelling.
Gastrointestinal: Negative for abdominal pain and vomiting.
Endocrine: Negative. Negative for cold intolerance.
Genitourinary: Negative for dysuria, flank pain and urgency.
Musculoskeletal: Negative for back pain, gait problem, neck pain and neck stiffness.
Skin: Negative for rash.
Allergic/Immunologic: Negative. Negative for immunocompromised state.
Neurological: Positive for leg weakness
General: Well developed. In no acute distress.
Cardio: Regular rate and rhythm without murmur. Extremities are without cyanosis or edema.
Neuro:
Mental Status: Alert, oriented to person, place, January,. Increased processing time. Nonfluent. Follows simple requests.
Cranial Nerves: . Pupils are equally round and reactive to light. EOMs full. Visual zuñiga full to confrontation. No ptosis. No nystagmus. V1-V3 intact to light touch and pinprick bilaterally, symmetric. Face symmetric. Impaired hearing AU.
The palate elevated well. SCMs and traps 5/5. Tongue midline. Edentulous dysarthria. Moderate dysphonia
Motor: Normal bulk and tone. No pronator or arm drift. Strength 5/5 throughout, except for proximal paraparesis no clonus.
Reflexes: 0+ throughout the upper extremities and knees. 0/2 in AJs. Plantar responses flexor bilaterally.
Sensory: Preserved vibration at the toes
Coordination: No dysmetria or tremor.
Gait: deferred
Assessment and Plan:
I. New right centrum semiovale ovale and left frontal lobe hypodensities.
II. History of L BG ICH, chronic BL lentiform nucleus, L EC, R caudate infarcts.
III. DM, suboptimally controlled
IV. Ambulatory dysfunction.
V. Vascular encephalopathy
-Fall and aspiration precautions
-Repeat CT head wo contrast in 24h
-ASA 81 mg QD
-Lipitor 40 mg QHS
-TTE
-Strict glycemic control
-PT.
-DVT prophylaxis.
I personally reviewed all radiology and labs along with past medical records pertinent to current medical problems. Total time spent in patient care is 60 minutes.
Thank you for allowing us to participate in the care of this patient. We will continue to follow. Please do not hesitate to contact us with any questions or concerns.
Subjective/Objective
Subjective Data
Date of Service: February 19, 2024
Objective Data
Vital Signs
Temp Pulse Resp BP Pulse Ox
36.9 C 76 38 100/50 92
02/19/24 11:30 02/19/24 10:00 02/19/24 10:00 02/19/24 10:00 02/19/24 10:36
Lab Results
02/19/24 06:18
02/19/24 06:18
Sodium 140 mmol/L (135-145) 02/19/24 06:18
Potassium 3.9 mmol/L (3.5-5.1) 02/19/24 06:18
BUN 73 mg/dl (7-17) H 02/19/24 06:18
Glucose 171 mg/dl (70-99) H 02/19/24 06:18
Calcium 9.8 mg/dl (8.4-10.2) 02/19/24 06:18
Jss-V-Wtiursifqke Pept 2480 pg/ml 02/16/24 12:24
Patient Allergies
adhesive Allergy (Verified 12/26/23 14:38)
BANDAIDS-REDNESS AND RASH
hydromorphone [From Dilaudid] Allergy (Verified 12/26/23 14:38)
CONFUSION
Medications
-
Active Medications
Generic Name Dose Route Start Last Admin
Trade Name Freq PRN Reason Stop Dose Admin
Acetaminophen 650 mg 02/16/24 15:13
Acetaminophen 325 Mg Tablet PO 03/15/24 15:12
Q4HPRN PRN
mild pain/BENAVIDES/temp> 100.4F
Albuterol/Ipratropium 3 ml 02/16/24 15:13 02/16/24 15:38
Ipratropium 0.5/Albuterol 3 Mg (3 Ml Ampul) INH 3 ml
R Q4HPRN PRN Administration
shortness of breath
Protocol
Albuterol/Ipratropium 3 ml 02/16/24 20:00 02/19/24 07:35
Ipratropium 0.5/Albuterol 3 Mg (3 Ml Ampul) INH 3 ml
R BID JOSH Administration
Protocol
Allopurinol 300 mg 02/17/24 08:00 02/19/24 08:35
Allopurinol 300 Mg Tablet PO 03/16/24 07:59 Not Given
DAILY JOSH
Amlodipine Besylate 10 mg 02/17/24 08:00 02/19/24 08:34
Amlodipine 10 Mg Tablet PO 03/16/24 07:59 Not Given
DAILY JOSH
Artificial Tears 1 drops 02/16/24 15:31
Artificial Tears Pf (Refresh) 10 Drop Droperette BOTH EYES 03/15/24 15:30
Q8HPRN PRN
dry eyes
Aspirin 81 mg 02/17/24 08:00 02/19/24 08:33
Aspirin 81 Mg (Enteric Coated) Tablet PO 03/16/24 07:59 Not Given
DAILY JOSH
Atorvastatin Calcium 40 mg 02/16/24 22:00 02/18/24 21:23
Atorvastatin (Lipitor) 40 Mg Tablet PO 03/15/24 21:59 40 mg
HS JOSH Administration
Cholecalciferol 25 mcg 02/17/24 08:00 02/19/24 08:35
Cholecalciferol (Vitamin D3) 25 Mcg Tablet (1,000 Units) PO 03/16/24 07:59 Not Given
DAILY JOSH
Clonazepam 0.5 mg 02/16/24 20:00 02/19/24 08:34
Clonazepam 0.5 Mg Tablet PO 03/15/24 19:59 Not Given
BID JOSH
Dextrose 12.5 grams 02/16/24 15:13
Dextrose 50% (0.5 Grams/Ml) 50 Ml Syringe IV 03/15/24 15:12
[id number] PRN
hypoglycemia
Protocol
Docusate Sodium 100 mg 02/16/24 20:00 02/19/24 08:34
Docusate Sodium 100 Mg Capsule PO 03/15/24 19:59 Not Given
BID JOSH
Famotidine 20 mg 02/16/24 22:00 02/18/24 21:24
Famotidine 20 Mg Tablet PO 03/15/24 21:59 20 mg
HS JOSH Administration
Furosemide 80 mg 02/17/24 08:00 02/18/24 08:56
Furosemide 80 Mg Tablet PO 03/16/24 07:59 80 mg
DAILY JOSH Administration
Furosemide 40 mg 02/18/24 16:00 02/19/24 08:24
Furosemide 40 Mg (10 Mg/Ml) 4 Ml Vial IV 03/17/24 15:59 40 mg
BID AT 0800,1600 JOSH Administration
Glucagon 1 mg 02/16/24 15:13
Glucagon 1 Mg Vial IM 03/15/24 15:12
PRN PRN
hypoglycemia
Protocol
Guaifenesin 600 mg 02/16/24 20:00 02/19/24 08:34
Guaifenesin 600 Mg Extended Release Tablet PO 03/15/24 19:59 Not Given
Q12 JOSH
Heparin Sodium 5,000 units 02/16/24 20:00 02/19/24 08:24
Heparin 5,000 Units/Ml 1 Ml Vial SC 03/15/24 19:59 5,000 units
Q12 JOSH Administration
Insulin Glargine 35 units/ 0.35 mls @ 0 mls/hr 02/16/24 18:00 02/18/24 19:08
Device SC 03/15/24 17:59 0.35 mls
QPM JOSH Administration
As Directed
Ampicillin Sodium/Sulbactam 120 mls @ 240 mls/hr 02/18/24 10:00 02/19/24 10:27
Sodium 3 gm/ Sodium Chloride IV 120 mls
Q12H JOSH Administration
Insulin Aspart 0 units 02/17/24 16:30 02/19/24 12:48
Insulin Aspart Low Resistance 300 Units/3 Ml Pen.Injctr SC 03/16/24 16:29 Not Given
AC JOSH
Protocol
Insulin Aspart 5 units 02/17/24 16:30 02/19/24 12:47
Insulin Aspart (100 Units/Ml) 3 Ml Flexpen SC 03/16/24 16:29 Not Given
AC JOSH
Lidocaine 1 patch 02/17/24 08:00 02/19/24 08:25
Lidocaine 4% Topical Patch TOPICAL 03/16/24 07:59 1 patch
DAILY JOSH Administration
Lorazepam 2 mg 02/19/24 11:27
Lorazepam 2 Mg/Ml Vial IV 03/18/24 11:26
PRN PRN
sedation before MRI
Miconazole Nitrate 0 applic 02/16/24 20:00 02/19/24 08:25
Miconazole Powder Bottle TOPICAL 03/15/24 19:59 1 applic
BID JOSH Administration
Patch Removal 0 patch 02/17/24 20:00 02/18/24 20:14
Remove Lidocaine Patch REMOVE 03/16/24 19:59 1 patch
DAILY@2000 JOSH Administration
Psyllium Hydrophilic Mucilloid 1 packet 02/17/24 08:00 02/19/24 08:34
Psyllium Packet PO 03/16/24 07:59 Not Given
DAILY JOSH
Sennosides 8.6 mg 02/16/24 20:00 02/19/24 08:35
Sennosides (Senokot) 8.6 Mg Tablet PO 03/15/24 19:59 Not Given
BID JOSH
Sertraline HCl 25 mg 02/17/24 08:00 02/19/24 08:35
Sertraline 25 Mg Tablet PO 03/16/24 07:59 Not Given
DAILY JOSH
Sodium Chloride 0 flush 02/16/24 16:00
Sodium Chloride 0.9% (Flush) Syringe IV 03/15/24 15:59
PER PROTOCOL JOSH
Home Medications
Medication Instructions Recorded
dextran 70-hypromellose eye drops 1 drp BOTH EYES Q8HPRN PRN dry eyes 08/16/21
in a dropperette (Artificial Tears
(PF) drops in a dropperette)
lidocaine 4 % topical patch 1 patch topical DAILY lower back 08/26/23
Pain
bisacodyl 10 mg rectal suppository 10 mg MI [id number] PRN if no bm by 09/09/23
(Dulcolax (bisacodyl)) 3rd day
clonazepam 0.5 mg tablet 0.5 mg PO BID Mental Health/Anxiety 09/09/23
magnesium hydroxide 400 mg/5 mL 30 ml PO HSPRN PRN if no bm x 2 09/09/23
oral suspension (Milk of Magnesia) days
sodium phosphates 19 gram-7 118 ml MI DAILYPRN PRN if no bm x 09/09/23
gram/118 mL enema (Fleet Enema) 4 days
acetaminophen 325 mg capsule 650 mg PO Q6HPRN PRN mild 10/12/23
(Tylenol) pain/fever >100
amlodipine 10 mg tablet 10 mg PO DAILY Blood Pressure 10/12/23
aspirin 81 mg tablet,delayed 81 mg PO DAILY Blood Clot 10/12/23
release Prevention/Tx
atorvastatin 40 mg tablet 40 mg PO HS High Cholesterol 10/12/23
cholecalciferol (vitamin D3) 25 25 mcg PO DAILY Supplement 10/12/23
mcg (1,000 unit) tablet (Vitamin
D3)
docusate sodium 100 mg capsule 100 mg PO BID Constipation 10/12/23
famotidine 20 mg tablet (Acid 20 mg PO HS Gastrointestinal Issue 10/12/23
Controller)
sennosides 8.6 mg tablet (senna) 8.6 mg PO BID Constipation 10/12/23
sertraline 25 mg tablet 25 mg PO DAILY Depression 10/12/23
allopurinol 300 mg tablet 300 mg PO DAILY Gout 11/15/23
menthol 1 applic topical HS bilateral 11/15/23
shoulder pain
psyllium 1 packet PO DAILY Constipation 12/26/23
insulin glargine 100 unit/mL (3 35 unit (0.35 mL) SC QPM #15 mL 12/30/23
mL) subcutaneous pen (Lantus
Solostar U-100 Insulin)
furosemide 80 mg tablet 80 mg PO DAILY Fluid 02/16/24
Retention/Swelling
insulin lispro 100 unit/mL 0 sliding scale dose SC AC Diabetes 02/16/24
subcutaneous solution (Humalog
U-100 Insulin)
ipratropium 0.5 mg-albuterol 3 mg 3 ml inhalation R BID 02/16/24
(2.5 mg base)/3 mL nebulization Lung/Breathing Issues
soln
miconazole nitrate 2 % topical 1 applic topical BIDPRN PRN b/l 02/16/24
powder (Miconazorb AF) groin
zinc oxide-vitamin B5-vit E 11.3% 1 applic topical BID alexandro areas 02/16/24
topical cream (Balmex Adult Care)
potassium chloride 20 mEq 20 meq PO BID Supplement 02/17/24
tablet,extended release(part/cryst)
Vital Signs and Labs
-
Vital Signs and Labs:
Vital Signs
Temp Pulse Resp BP Pulse Ox
36.9 C 87 28 151/75 94
02/19/24 11:30 02/19/24 14:00 02/19/24 14:00 02/19/24 14:00 02/19/24 14:00
Lab Results
02/19/24 06:18
02/19/24 06:18
Sodium 140 mmol/L (135-145) 02/19/24 06:18
Potassium 3.9 mmol/L (3.5-5.1) 02/19/24 06:18
BUN 73 mg/dl (7-17) H 02/19/24 06:18
Glucose 171 mg/dl (70-99) H 02/19/24 06:18
Calcium 9.8 mg/dl (8.4-10.2) 02/19/24 06:18
Wxt-H-Penltopjifg Pept 2480 pg/ml 02/16/24 12:24
Home Medications
-
Home Medications
dextran 70-hypromellose eye drops in a dropperette (Artificial Tears (PF) drops in a dropperette) 1 drp BOTH EYES Q8HPRN PRN dry eyes 08/16/21
lidocaine 4 % topical patch 1 patch topical DAILY lower back Pain 08/26/23
bisacodyl 10 mg rectal suppository (Dulcolax (bisacodyl)) 10 mg MI [id number] PRN if no bm by 3rd day 09/09/23
clonazepam 0.5 mg tablet 0.5 mg PO BID Mental Health/Anxiety 09/09/23
magnesium hydroxide 400 mg/5 mL oral suspension (Milk of Magnesia) 30 ml PO HSPRN PRN if no bm x 2 days 09/09/23
sodium phosphates 19 gram-7 gram/118 mL enema (Fleet Enema) 118 ml MI DAILYPRN PRN if no bm x 4 days 09/09/23
acetaminophen 325 mg capsule (Tylenol) 650 mg PO Q6HPRN PRN mild pain/fever >100 10/12/23
amlodipine 10 mg tablet 10 mg PO DAILY Blood Pressure 10/12/23
aspirin 81 mg tablet,delayed release 81 mg PO DAILY Blood Clot Prevention/Tx 10/12/23
atorvastatin 40 mg tablet 40 mg PO HS High Cholesterol 10/12/23
cholecalciferol (vitamin D3) 25 mcg (1,000 unit) tablet (Vitamin D3) 25 mcg PO DAILY Supplement 10/12/23
docusate sodium 100 mg capsule 100 mg PO BID Constipation 10/12/23
famotidine 20 mg tablet (Acid Controller) 20 mg PO HS Gastrointestinal Issue 10/12/23
sennosides 8.6 mg tablet (senna) 8.6 mg PO BID Constipation 10/12/23
sertraline 25 mg tablet 25 mg PO DAILY Depression 10/12/23
allopurinol 300 mg tablet 300 mg PO DAILY Gout 11/15/23
menthol 1 applic topical HS bilateral shoulder pain 11/15/23
psyllium 1 packet PO DAILY Constipation 12/26/23
insulin glargine 100 unit/mL (3 mL) subcutaneous pen (Lantus Solostar U-100 Insulin) 35 unit (0.35 mL) SC QPM #15 mL 12/30/23
furosemide 80 mg tablet 80 mg PO DAILY Fluid Retention/Swelling 02/16/24
insulin lispro 100 unit/mL subcutaneous solution (Humalog U-100 Insulin) 0 sliding scale dose SC AC Diabetes 02/16/24
ipratropium 0.5 mg-albuterol 3 mg (2.5 mg base)/3 mL nebulization soln 3 ml inhalation R BID Lung/Breathing Issues 02/16/24
miconazole nitrate 2 % topical powder (Miconazorb AF) 1 applic topical BIDPRN PRN b/l groin 02/16/24
zinc oxide-vitamin B5-vit E 11.3% topical cream (Balmex Adult Care) 1 applic topical BID alexandro areas 02/16/24
potassium chloride 20 mEq tablet,extended release(part/cryst) 20 meq PO BID Supplement 02/17/24
Medications
-
Medications:
Generic Name Dose Route Start Last Admin
Trade Name Freq PRN Reason Stop Dose Admin
Acetaminophen 650 mg 02/16/24 15:13
Acetaminophen 325 Mg Tablet PO 03/15/24 15:12
Q4HPRN PRN
mild pain/BENAVIDES/temp> 100.4F
Albuterol/Ipratropium 3 ml 02/16/24 15:13 02/16/24 15:38
Ipratropium 0.5/Albuterol 3 Mg (3 Ml Ampul) INH 3 ml
R Q4HPRN PRN Administration
shortness of breath
Protocol
Albuterol/Ipratropium 3 ml 02/16/24 20:00 02/19/24 07:35
Ipratropium 0.5/Albuterol 3 Mg (3 Ml Ampul) INH 3 ml
R BID JOSH Administration
Protocol
Allopurinol 300 mg 02/17/24 08:00 02/19/24 08:35
Allopurinol 300 Mg Tablet PO 03/16/24 07:59 Not Given
DAILY JOSH
Amlodipine Besylate 10 mg 02/17/24 08:00 02/19/24 08:34
Amlodipine 10 Mg Tablet PO 03/16/24 07:59 Not Given
DAILY JOSH
Artificial Tears 1 drops 02/16/24 15:31
Artificial Tears Pf (Refresh) 10 Drop Droperette BOTH EYES 03/15/24 15:30
Q8HPRN PRN
dry eyes
Aspirin 81 mg 02/17/24 08:00 02/19/24 08:33
Aspirin 81 Mg (Enteric Coated) Tablet PO 03/16/24 07:59 Not Given
DAILY JOSH
Atorvastatin Calcium 40 mg 02/16/24 22:00 02/18/24 21:23
Atorvastatin (Lipitor) 40 Mg Tablet PO 03/15/24 21:59 40 mg
HS JOSH Administration
Cholecalciferol 25 mcg 02/17/24 08:00 02/19/24 08:35
Cholecalciferol (Vitamin D3) 25 Mcg Tablet (1,000 Units) PO 03/16/24 07:59 Not Given
DAILY JOSH
Clonazepam 0.5 mg 02/16/24 20:00 02/19/24 08:34
Clonazepam 0.5 Mg Tablet PO 03/15/24 19:59 Not Given
BID JOSH
Dextrose 12.5 grams 02/16/24 15:13
Dextrose 50% (0.5 Grams/Ml) 50 Ml Syringe IV 03/15/24 15:12
[id number] PRN
hypoglycemia
Protocol
Docusate Sodium 100 mg 02/16/24 20:00 02/19/24 08:34
Docusate Sodium 100 Mg Capsule PO 03/15/24 19:59 Not Given
BID JOSH
Famotidine 20 mg 02/16/24 22:00 02/18/24 21:24
Famotidine 20 Mg Tablet PO 03/15/24 21:59 20 mg
HS JOSH Administration
Furosemide 80 mg 02/17/24 08:00 02/18/24 08:56
Furosemide 80 Mg Tablet PO 03/16/24 07:59 80 mg
DAILY JOSH Administration
Furosemide 40 mg 02/18/24 16:00 02/19/24 08:24
Furosemide 40 Mg (10 Mg/Ml) 4 Ml Vial IV 03/17/24 15:59 40 mg
BID AT 0800,1600 JOSH Administration
Glucagon 1 mg 02/16/24 15:13
Glucagon 1 Mg Vial IM 03/15/24 15:12
PRN PRN
hypoglycemia
Protocol
Guaifenesin 600 mg 02/16/24 20:00 02/19/24 08:34
Guaifenesin 600 Mg Extended Release Tablet PO 03/15/24 19:59 Not Given
Q12 JOSH
Heparin Sodium 5,000 units 02/16/24 20:00 02/19/24 08:24
Heparin 5,000 Units/Ml 1 Ml Vial SC 03/15/24 19:59 5,000 units
Q12 JOSH Administration
Insulin Glargine 35 units/ 0.35 mls @ 0 mls/hr 02/16/24 18:00 02/18/24 19:08
Device SC 03/15/24 17:59 0.35 mls
QPM JOSH Administration
As Directed
Ampicillin Sodium/Sulbactam 120 mls @ 240 mls/hr 02/18/24 10:00 02/19/24 10:27
Sodium 3 gm/ Sodium Chloride IV 120 mls
Q12H JOSH Administration
Insulin Aspart 0 units 02/17/24 16:30 02/19/24 12:48
Insulin Aspart Low Resistance 300 Units/3 Ml Pen.Injctr SC 03/16/24 16:29 Not Given
AC JOSH
Protocol
Insulin Aspart 5 units 02/17/24 16:30 02/19/24 12:47
Insulin Aspart (100 Units/Ml) 3 Ml Flexpen SC 03/16/24 16:29 Not Given
AC JOSH
Lidocaine 1 patch 02/17/24 08:00 02/19/24 08:25
Lidocaine 4% Topical Patch TOPICAL 03/16/24 07:59 1 patch
DAILY JOSH Administration
Lorazepam 2 mg 02/19/24 11:27
Lorazepam 2 Mg/Ml Vial IV 03/18/24 11:26
PRN PRN
sedation before MRI
Miconazole Nitrate 0 applic 02/16/24 20:00 02/19/24 08:25
Miconazole Powder Bottle TOPICAL 03/15/24 19:59 1 applic
BID JOSH Administration
Patch Removal 0 patch 02/17/24 20:00 02/18/24 20:14
Remove Lidocaine Patch REMOVE 03/16/24 19:59 1 patch
DAILY@2000 JOSH Administration
Psyllium Hydrophilic Mucilloid 1 packet 02/17/24 08:00 02/19/24 08:34
Psyllium Packet PO 03/16/24 07:59 Not Given
DAILY JOSH
Sennosides 8.6 mg 02/16/24 20:00 02/19/24 08:35
Sennosides (Senokot) 8.6 Mg Tablet PO 03/15/24 19:59 Not Given
BID JOSH
Sertraline HCl 25 mg 02/17/24 08:00 02/19/24 08:35
Sertraline 25 Mg Tablet PO 03/16/24 07:59 Not Given
DAILY JOSH
Sodium Chloride 0 flush 02/16/24 16:00
Sodium Chloride 0.9% (Flush) Syringe IV 03/15/24 15:59
PER PROTOCOL JOSH
--- NOTE | 2024-02-19 14:24 | PTOTSP ---
ST Follow-Up
Pt presents with suspected moderate oropharyngeal dysphagia characterized by inability to masticate solids as well as inadequate airway protection, possible associated with newly identified possible acute/subacte infarctions.
Recommendations:
- NPO x meds crushed in puree
- No ARHP; pt appears to be aspirating on even secretions.
- Oral care QID with moist toothette swabs and suctioning.
- Video fluoroscopic swallow study tomorrow.
- Consider ENT consult for direct visualization assessment of upper airway patency and larynx.
- SENIOR INSPECTOR to continue to follow closely.
--- NOTE | 2024-02-19 15:52 | PTCARENOTE ---
Pt transferred to [address] [place] [address]. Stroke scale completed with accepting RN. NIHSS: 4 for slurring and ataxia. Pt's baseline is severely garbled speech and odd affect.
--- NOTE | 2024-02-19 17:25 | PTCARENOTE ---
pt transfered form IMU to room 212, NIH stroke scale done at bedside with IMU RN scored 4; pt's baseline with severe ataxia and garbled speech,no teeth in her mouth hard to understand at times, but AOx3, oriented to her new room, how to use call
zapien, within reach, vitals taken and WNL, pt nPO for video swallow tomorrow.
[2024-02-19 17:58] LABS: Glucose - Point of Care 188 mg/dl (70-99)
[2024-02-19] MEDS: LANTUS 0.200000000000000011 UNITS SC (19:43)
[2024-02-19] MEDS: SENOKOT 8.59999999999999964 MG PO (20:36)
[2024-02-19] MEDS: COLACE 100 MG PO (20:36)
[2024-02-19] MEDS: MUCINEX 600 MG PO (20:36)
[2024-02-19] MEDS: KLONOPIN 0.5 MG PO (20:36)
[2024-02-19] MEDS: PEPCID 20 MG PO (22:07)
[2024-02-19] MEDS: LIPITOR 40 MG PO (22:08)
[2024-02-19 23:52] LABS: Glucose - Point of Care 125 mg/dl (70-99)
[2024-02-20] VITALS (7 sets, daily range): BP systolic 118–154; BP diastolic 58–83; PULSE 2–77; BMI 32.5
[2024-02-20 05:56] LABS: Glucose - Point of Care 101 mg/dl (70-99)
[2024-02-20] MEDS: NOVOLOG FLEXPEN-LOW RESISTANCE SC ×2 (06:16→12:27)
[2024-02-20 06:25] LABS: % Basophils 0.4 % (0-2); % Eosinophils 7.8 % (0-6); % Immature Granulocytes 0.3 % (0-0.5); % Lymphocytes 20.2 % (20.5-51.1); % Monocytes 6.3 % (1.7-9.3); Absolute Basophils 0.1 10^3/uL (0-0.2); Absolute Eosinophils 0.9 10^3/uL (0-0.7); Absolute Lymphocytes 2.4 10^3/uL (1.2-3.4); Absolute Monocytes 0.8 10^3/uL (0.1-0.6); Absolute Neutrophils 7.8 10^3/uL (1.4-6.5); Hematocrit 41.7 % (37.0-47.0); Mean Corp Hgb Conc. 28.8 g/dL (33.0-37.0); Mean Corpuscular Hgb 24.4 pg (27.0-31.0); Mean Corpuscular Volume 84.9 fL (81.0-99.0); Mean Platelet Volume 10.3 fL (7.4-10.4); Nucleated Red Blood Cells % 0 %; Platelet Count 306 10^3/uL (130-400); Red Blood Cell Count 4.91 10^6/uL (4.20-5.40); Red Cell Dist. Width 17.6 % (11.5-14.5)
[2024-02-20 06:45] LABS: ALT (SGPT) 14 U/L (0-35); AST (SGOT) 24 U/L (14-36); Alkaline Phosphatase 112 U/L (38-126); Blood Urea Nitrogen 59 mg/dl (7-17); Calcium 10.3 mg/dl (8.4-10.2); Carbon Dioxide 38 mmol/L (22-30); Chloride 90 mmol/L (98-107); Estimated Creatinine Clearance 35 ml/min; Glucose 96 mg/dl (70-99); Potassium 3.8 mmol/L (3.5-5.1); Sodium 142 mmol/L (135-145); Total Bilirubin 0.6 mg/dl (0.2-1.3); Total Protein 6.4 g/dl (6.3-8.2); eGFR 45.76
[2024-02-20 07:22] LABS: Glucose - Point of Care 96 mg/dl (70-99)
[2024-02-20] MEDS: DUONEB 3 ML INH ×2 (07:45→19:43)
--- NOTE | 2024-02-20 07:52 | W.PN.HOSP.TC ---
Addendum entered and electronically signed by Issa Lora MD 02/20/24 11:39:
updated sister over the phone
Original Note:
Today's Communication/Plan
-
IV antibiotics. VSE. Repeated CT of the head.
Assessment / Plan
Assessment / Plan
Physical exam:
General: Acutely ill
HEENT: Normocephalic, Atraumatic and Moist Mucous Membranes
Respiratory: Bilateral coarse rhonchi; Negative Wheezes, no crackles.
Cardiac: Regular Rhythm and S1/S2
GI: Soft, Nontender and Nondistended
Musculoskeletal: Bilateral edema. No Clubbing, No Cyanosis
Neuro: Awake, Alert. Dysarthria present. Left-sided weakness. Ataxia.
Psych: Calm
A/P:
Acute on chronic hypoxic respiratory failure:
-Multifactorial including aspiration pneumonia, CHF, restrictive lung disease and obstructive lung disease
-Continue supplemental oxygen, currently on mid flow oxygen 8 L
-Continue diuretics, IV Lasix 40 mg twice a day but change to once daily (Wt down from 84 to 77 kg today)
-Continue IV antibiotics, Unasyn
-Pulmonary following
Acute CVA:
-Repeated CT scan of the head today, stable (new right centrum semiovale and left frontal lobe possible infarct)
-Continue aspirin and statin
-MRI of the brain and MRA of the head and neck pending.
-History of CVA in the past and dysphagia with peg tube removed and passed/she had been on a pur�ed and thin liquid diet at group home. Now npo.
-Neurology following
Dysphagia:
-Keep n.p.o.
-Plan for repeat VSE
-Speech therapy reeval
Acute on chronic diastolic congestive heart failure:
-IV diuretics, IV Lasix 40 mg twice a day change to once a day
-Monitor strict I/O
-Monitor daily weight, Wt down from 84 to 77 kg today
-Monitor renal function and electrolytes
-Reviewed latest echocardiogram on our system
-Continue guideline-directed medical therapy for heart failure (GDMT)
-Fluid restriction
-Salt restriction
-Heart failure education
-Follow up clinical response
Aspiration pneumonia:
-Continue IV antibiotics, Unasyn
CKD stage IIIb:
-Creat 1.2 today appears close to baseline
-Follow BMP
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
-Continue aspirin, statin
Hypertension:
-continue Norvasc, Lasix, avoid hypotension
�Hold all nephrotoxic agents
Diabetes mellitus type 2 on insulin:
-cont insulin with ISS
HLD:
-Continue atorvastatin 40 mg at bedtime
Anxiety:
-Continue clonazepam hold for sedation
-Sertraline
Gout:
-allopurinol, colchicine continued
GERD:
-PPI continued
COVID- infection 2019
DVT prophylaxis -Heparin subcu
DNR
Total time spent on today's encounter was 52 minutes which included time spent in counseling the patient/family regarding diagnosis and treatment plan as listed above, goals of care, and symptom management. Case was discussed with nursing staff,
specialists, and care coordinators/case management. All labs and imaging personally reviewed by me. Remainder the time spent in detailed review of previous records, lab data, imaging, and other medical provider documentation.
Anticipated Discharge: > 48 hours
Subjective/Interval History
-
Date of Service: February 20, 2024
Patient seen and examined. On supplemental oxygen.Afebrile
Objective Data
-
Labs:
Laboratory Results
02/20/24
05:40
WBC 12.0 H
Hgb 12.0
Hct 41.7
Plt Count 306
Sodium 142
Potassium 3.8
Chloride 90 L
Carbon Dioxide 38 H
BUN 59 H
Creatinine 1.2 H
Glucose 96
Calcium 10.3 H
Total Bilirubin 0.6
AST 24
ALT 14
Alkaline Phosphatase 112
Vital Signs:
Vital Signs
Temp Pulse Resp BP Pulse Ox
98.1 F 72 20 138/72 94
02/20/24 03:28 02/20/24 03:28 02/20/24 03:28 02/20/24 03:28 02/20/24 06:13
I&O
02/19/24 02/20/24 02/21/24
06:59 06:59 06:59
Intake Total 1380 / 1380
Output Total 1999 / 1999 2400 / 2400
Balance -620 / -620 -2400 / -2400
--- NOTE | 2024-02-20 08:36 | W.PN.NEURO.1 ---
Today's Communication / Plan
-
-Goal normotension
-Add Clopidogrel for DAPT, tentatively 21 days
-Monitor on cardiac telemetry and check transthoracic echocardiogram
-Check MRI of the head and MRA of the head and neck
-Neurologic checks NIH stroke scale
-Goal normoglycemia
-Continue current dose of statin
-Speech therapy evaluation, formerly had had PEG tube removed after previous stroke
Will follow
Neuro Assessment/Plan
Assessment
78-year-old woman with a past medical history of previous ischemic stroke, congestive heart failure, presents to the hospital with acute on chronic hypoxic respiratory failure thought to be multifactorial from aspiration pneumonia, CHF and chronic
lung disease
CT head noncontrast showed findings suspicious for new infarcts compared to her previous brain imaging
Risk factors for stroke include previous stroke, hypertension, diabetes, CKD CHF and previous CABG indicating coronary artery disease
Subjective/Objective
Subjective Data
Date of Service: February 20, 2024
No acute events overnight, patient feels poorly, no headache, discussed concern for stroke based on brain imaging
Objective Data
Vital Signs
Temp Pulse Resp BP Pulse Ox
98.8 F 80 16 154/83 99
02/20/24 07:15 02/20/24 07:54 02/20/24 07:54 02/20/24 07:15 02/20/24 07:54
Lab Results
02/20/24 05:40
02/20/24 05:40
Sodium 142 mmol/L (135-145) 02/20/24 05:40
Potassium 3.8 mmol/L (3.5-5.1) 02/20/24 05:40
BUN 59 mg/dl (7-17) H 02/20/24 05:40
Glucose 96 mg/dl (70-99) 02/20/24 05:40
Calcium 10.3 mg/dl (8.4-10.2) H 02/20/24 05:40
Kdq-T-Sunvkoyvqbk Pept 2480 pg/ml 02/16/24 12:24
Patient Allergies
adhesive Allergy (Verified 12/26/23 14:38)
BANDAIDS-REDNESS AND RASH
hydromorphone [From Dilaudid] Allergy (Verified 12/26/23 14:38)
CONFUSION
Review of Systems
-
History Source: Patient
All other systems: Reviewed and negative
Constitutional: No Symptoms
EENT: No Symptoms Reported
Respiratory: Trouble Breathing
Cardiac: No Symptoms
Abdomen/GI: No Symptoms
Genitourinary: No Symptoms
Musculoskeletal: No Symptoms
Skin: No Symptoms
Neuro: Weakness and Speech Problem
Endocrine: No Symptoms
Hematologic / Lymphatic: No Symptoms
Physical Exam
-
General: Comfortable
Eyes: No Ptosis
HEENT: Atraumatic
Neck: No Bruits Bilaterally
Respiratory: Rales; Negative Accessory Resp Muscle Use
Cardiac: No Murmur
GI: Soft and Non-tender
Skin: Unremarkable, Warm and Dry
Extremities: No Clubbing
Psych: Negative Agitated
Extended Neurological Exam
Attention Span & Concentration: Awake, Alert and Interactive
Memory: Unremarkable
Tremor: Hand Tremor Absent
Involuntary Movement: None
Speech: Dysarthric; Negative Expressive Aphasia or Receptive Aphasia
Cranial Nerve II: Left Eye: Pupillary Reactivity Unremarkable and Pupillary Size Unremarkable
Cranial Nerve II: Right Eye: Pupillary Reactivity Unremarkable and Pupillary Size Unremarkable
Cranial Nerves III, IV, : Extraocular Movement: Extraocular Movement Full in all Directions
Muscle Strength, Overall: Full Throughout
Pronator Drift: No Drift in Upper Extremities
Deep Tendon Reflexes: Unremarkable Throughout
Touch Sensation: Unremarkable
Data Reviewed
-
CT Head: Report Reviewed and Image Reviewed
MRI Head: Ordered and Pending
MRA Head: Ordered and Pending
MRA Neck: Ordered and Pending
Echocardiogram: Ordered and Pending
Labs: Report Reviewed
--- NOTE | 2024-02-20 09:13 | W.PN.PUL3 ---
Today's Communication / Plan
-
Remains on 6L NC, wean as tolerated
Aspiration risk given new CVAs, VSE planning today
YELITZA/OHS not on routine treatment at home, PAP set up at [place]
Diuresis ongoing per team, compliance an issue
Overall GOC may need to be discussed in a patient with dementia and chronic mod-severe conditions
Assessment
-
Patient is an 78-year-old female with history of untreated suspected YELITZA/OHS, obesity, dementia, sedentary lifestyle, Chronic HFpEF presenting from [facility] with SOB/cough and hypoxemia, reportedly pulse ox in the low 80s at facility.� She
was given DuoNeb via nonrebreather by EMS with pulse ox improving into the upper 90s.� On arrival to ER, ABG with compensated CO2 retention pH 7.38/74. She is placed on BIPAP and admitted to IMU.
Acute hypoxic respiratory failure
Baseline use of 2L, placed on 8L midflow in ER
Chronic compensated hypercarbic respiratory failure, on BIPAP
Recent admission /01/21 for heart failure exacerbation
Hyponatremia
Hypochloremic metabolic alkalosis
Hyperglycemia
Subacute HFpEF, proBNP 2480
Conditions present [employer]:
Acute hypoxic respiratory insufficiency, admitted 03/27/20
Positive Covid, 03/27/20
Restrictive lung disease/obstructive lung disease
Lifelong nonsmoker
Spirometry-FEV1 850 mL (40%), FVC 42%, 8% BD response
DuoNeb/Pulmicort in outpx
Peripheral Eosinophilia in the past
CAD with h/o CABG 12/2017
Hypertension
Hyperlipidemia
Diabetes-type 2
Chronic renal insufficiency-serum creatinine 1.2-1.4
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
Dysphagia, aspiration risk
Obesity
Suspected sleep disorder breathing
History of mentally challenged
Sedentary lifestyle
Depression
Reflux
Anxiety
Cognitive dysfunction/dementia
DNR
Plan
Respiratory status improving, now on 6L NC, wean as tolerated
She had previously been weaned to 2L at last admission
ABG reviewed wtih chronic compensation but worsened overall, BIPAP now
Continue BiPAP through night and PRN
Follow VBG as needed
DuoNebs as needed
No indication for steroids at this time
CT Head noted, new right centrum semiovale and left frontal lobe CVAs
Neuro following
Aspiration precautions
Speech eval in past 2019- Patient judged to be at elevated risk for aspiration given impulsivity, reduced breathing/swallowing coordination, respiratory compromise requiring supplemental O2, prior hx of dysphagia.�
Recommend cautious intake of DYS I/NTL w/ strict aspiration precautions, meds whole/crushed w/ applesauce and supervision w/ intake d/t impulsivity.
Previous VSE reviewed with signs of aspiration
Report showed deep penetration of nectar thick liquids via cup and mary aspiration of pureed consistencies.
Repeat video swallow ordered by Dr. Gabriel
History of PEG placement, which was reversed
She has no obvious infiltrate on CXR this admission
Continue diuresis as tolerated
Monitor renal function, electrolytes, intake/output, lower extremity edema and weight
Continue to replace electrolytes as needed
Risk factors assessed for underlying sleep disordered breathing also noted, recommend outpatient PSG/sleep evaluation
Suspect YELITZA/OHS
ABG indicating compensated chronic CO2 retention
Unsure if her baseline cognition will limit PAP use
The patient has been seen in our office (last visit 2019) and instructed to have sleep study that she never followed up with.
She does not recall this discussion.
Weight loss measures recommended
Obesity contributing to respiratory symptoms
DVT prophylaxis-on subcu heparin
GI prophylaxis-on famotidine
Nutrition
Early mobilization/physical therapy
Reviewed with nursing as well as Dr. Gabriel
Suspected YELITZA/obesity hypoventilation syndrome
Outpatient pulmonary/sleep disorders follow-up recommended-last seen in the office 2019 and never followed up
Overall GOC may need to be discussed in a patient with dementia and chronic mod-severe conditions
Diagnostic Data
CXR 12/26/23- Moderate interstitial pulmonary edema.
Chest X-Ray: 08/26/23- faint R basilar infiltrate. Sternotomy wiring
CXR 08/16/21- No active cardiopulmonary disease. Stable postoperative changes. Stable perihilar interstitial scarring extending into the mid portions of both lungs.
CT Head 02/20/24: 1. Foci of hypoattenuation within the right centrum semiovale and left frontal lobe, unchanged compared to most recent CT dated 02/19/2024, however new compared to a prior study dated 11/13/2012. Foci are suspicious for infarction,
consider MRI for further characterization.
2. Cerebral atrophy, mild small vessel ischemic change.
3. Mild paranasal sinus change.
CT Scan: CHEST 08/27/23- LUNGS: There is a consolidative airspace opacity with air bronchograms in the right lower lobe that is suspicious for pneumonia. Trace right pleural fluid is present. There is no pneumothorax. Overall evaluation of the lung
parenchyma is somewhat limited by respiratory motion artifact. The trachea and central airways are patent.
11/24/19 Chest - 1. � Very limited study of the pulmonary arteries. No central pulmonary embolism. Beyond the central pulmonary arteries, the interlobar, segmental and subsegmental arteries are not evaluable.
2. � Severe generalized bronchial disease. In the right lower lobe, near occlusion of the segmental and subsegmental bronchi likely from bronchitis and underlying bronchomalacia.
3. � Multisegment right lower lobe partial collapse and consolidation.
4. � Elsewhere, hypoventilation, linear scarring or atelectasis. No sign of congestive heart failure.
5. � Mild cardiac dilation. Severe atherosclerosis post CABG.
Echo: 08/29/23- Normal biventricular size and systolic function without regional wall motion abnormality. Estimated LVEF 60-65%.�Stage II diastolic dysfunction suggestive of abnormal relaxation and increased�filling pressures.
Moderate mitral stenosis. Mean gradient is 7-8mmHg. Mild to moderate mitral�regurgitation.�Aortic sclerosis without stenosis.�Moderate tricuspid regurgitation. Mildly elevated PASP. Estimated pulmonary�artery pressure of 44 mmHg. Assuming a right
atrial pressure of 8 mmHg.�Compared to 01/18/18: moderate MS and TR are now present. PASP has increased�from 30 mmHg to 44 mmHg.
�
PFT's: [place] 01/02/18- FEV1 0.85L 48%, FVC 1.0L 42%, ratio 85. Post FEV1 0.92L 52%, no BD response (mixed pattern, mod-severely reduced)
Prior ECHO-stage II DD, moderate MS, moderate PH
Noted h/o CAD s/p CABG Dec 2017
Holter 2020 CONCLUSION: Sinus, average 71 BPM.� Range 41�111 T-pin.� Very rare ectopy.� AV Ceiclia noted
Subjective Data
-
Date of Service:
Date of Service: February 20, 2024
Chief Complaint: Pulmonary Follow Up and Dyspnea Follow Up
Subjective:
patient seen, VSE planning today
confused at baseline
CT reviewed, new CVA
Objective Data
Data Reviewed
Vital Signs / I&O / Oxygen:
Vital Signs
Temp Pulse Resp BP Pulse Ox
98.8 F 80 16 154/83 99
02/20/24 07:15 02/20/24 07:54 02/20/24 07:54 02/20/24 07:15 02/20/24 07:54
Intake and Output
02/19/24 02/20/24 02/21/24
06:59 06:59 06:59
Intake Total 1380 / 1380
Output Total 1999 / 1999 2400 / 2400
Balance -620 / -620 -2400 / -2400
SaO2 99
Nasal Cannula flow liters per 10
minute
Physical Exam
General: Respiratory Distress (n), Comfortable and Other (NAD)
HEENT: Normocephalic, Anicteric and Moist Mucous Membranes
Cardiovascular: Regular Rhythm
Respiratory: Clear, Wheeze (Few expiratory), Crackles (Basilar), Rhonchi (Expiratory), Non-Labored Respirations, Accessory Resp Muscle Use (n) and Stridor (n)
GI: Soft, Non Distended and Non Tender
Neurology: Awake, Alert and No Motor Deficits
Skin: Warm, Good Color, Cyanosis (n), Jaundice (n) and Rash (n)
Labs/Micro/Reports
Lab Data
02/20/24 05:40
02/20/24 05:40
Microbiology
02/16/24 19:58 Nose Nasal Screen MRSA (PCR) - Final
MRSA not detected - performed by PCR methodology.
[2024-02-20] MEDS: KLONOPIN 0.5 MG PO ×2 (09:27→20:32)
[2024-02-20] MEDS: MUCINEX 600 MG PO ×2 (09:27→20:32)
[2024-02-20] MEDS: ASPIR LOW (ENTERIC COATED) 81 MG PO (09:27)
[2024-02-20] MEDS: COLACE 100 MG PO ×2 (09:28→20:32)
[2024-02-20] MEDS: SENOKOT 8.59999999999999964 MG PO ×2 (09:28→20:32)
[2024-02-20] MEDS: ZOLOFT 25 MG PO (09:28)
[2024-02-20] MEDS: ZYLOPRIM 300 MG PO (09:28)
[2024-02-20] MEDS: NORVASC 10 MG PO (09:28)
[2024-02-20] MEDS: VITAMIN D3 (cholecalciferol) 25 MCG PO (09:28)
[2024-02-20] MEDS: DESENEX/MITRAZOL/ZEASORB 1 APPLIC TOPICAL ×2 (09:29→20:33)
[2024-02-20] MEDS: LIDOCAINE 4% PATCH 1 PATCH TOPICAL (09:29)
[2024-02-20] MEDS: METAMUCIL, KONSYL PO (09:29)
[2024-02-20] MEDS: HEPARIN 5000 UNITS SC ×2 (09:29→20:32)
[2024-02-20] MEDS: LASIX 40 MG IV (09:30)
[2024-02-20] MEDS: UNASYN IV ×2 (09:30→21:44)
[2024-02-20 12:26] LABS: Glucose - Point of Care 116 mg/dl (70-99)
[2024-02-20] MEDS: PLAVIX 300 MG PO (13:11)
--- NOTE | 2024-02-20 13:41 | PTOTSP ---
Video Swallow Examination
Patient presents with at least mild-moderate oral and mild pharyngeal stage of swallowing. No aspiration occurred - but risk may be elevated given current respiratory status (i.e., need for increased respiratory support, hx tachypnea). Please see
patient care note for full details of penetration and swallowing physiology.
Recommend:
1. IDDSI Level 4 (puree), IDDSI Level 0 (thin)
2. Medications - in puree
3. Strategies: full supervision with PO intake, upright to 90 degrees, small SINGLE sips/bites, slow rate, breaks for breathing, monitor respiratory status closely with PO only when RR <30 and SpO2 > 90%, reflux precautions
4. Oral care 3x daily
5. Dysphagia tx at the acute care level. Patient is not at her baseline diet at this time.
[2024-02-20] MEDS: ATIVAN 2 MG IV (14:04)
--- NOTE | 2024-02-20 16:03 | CM ---
Diuresing, New CVA's, O2 @ 6L. Discharge plan of care: Return to [facility] for resumption of LTC. Will need Bipap. Documentation forwarded to [place] and they will order Bipap. Caity is contact at [place]: (P) [phone] and (F)
[phone].
[2024-02-20 16:45] LABS: Glucose - Point of Care 165 mg/dl (70-99)
[2024-02-20] MEDS: LANTUS 0.200000000000000011 UNITS SC (16:49)
[2024-02-20] MEDS: NOVOLOG FLEXPEN-LOW RESISTANCE 1 UNITS SC (16:49)
[2024-02-20] MEDS: PEPCID 20 MG PO (21:44)
[2024-02-20] MEDS: LIPITOR 40 MG PO (21:44)
[2024-02-20 22:11] LABS: Glucose - Point of Care 275 mg/dl (70-99)
[2024-02-21] VITALS (9 sets, daily range): BP systolic 127–149; BP diastolic 53–78; PULSE 2–76; BMI 33.1
[2024-02-21 04:57] LABS: % Basophils 0.4 % (0-2); % Eosinophils 7.5 % (0-6); % Immature Granulocytes 0.4 % (0-0.5); % Lymphocytes 19.9 % (20.5-51.1); % Monocytes 5.8 % (1.7-9.3); Absolute Basophils 0.1 10^3/uL (0-0.2); Absolute Eosinophils 0.9 10^3/uL (0-0.7); Absolute Immature Granulocytes 0.1 10^3/uL (0-0.05); Absolute Lymphocytes 2.3 10^3/uL (1.2-3.4); Absolute Monocytes 0.7 10^3/uL (0.1-0.6); Absolute Neutrophils 7.5 10^3/uL (1.4-6.5); Hematocrit 40.4 % (37.0-47.0); Hemoglobin 11.7 g/dL (12.0-16.0); Mean Corpuscular Hgb 24.7 pg (27.0-31.0); Mean Corpuscular Volume 85.2 fL (81.0-99.0); Mean Platelet Volume 10.6 fL (7.4-10.4); Nucleated Red Blood Cells % 0 %; Platelet Count 303 10^3/uL (130-400); Red Blood Cell Count 4.74 10^6/uL (4.20-5.40); Red Cell Dist. Width 17.5 % (11.5-14.5); White Blood Cell Count 11.3 10^3/uL (4.8-10.8)
[2024-02-21 05:57] LABS: Blood Urea Nitrogen 63 mg/dl (7-17); Calcium 9.8 mg/dl (8.4-10.2); Chloride 86 mmol/L (98-107); Estimated Creatinine Clearance 36 ml/min; Glucose 160 mg/dl (70-99); Magnesium 1.4 mg/dl (1.6-2.3); Potassium 3.5 mmol/L (3.5-5.1); Sodium 139 mmol/L (135-145); eGFR 45.76
[2024-02-21 06:48] LABS: Carbon Dioxide 38 mmol/L (22-30)
--- NOTE | 2024-02-21 07:19 | W.PN.NEURO.1 ---
Today's Communication / Plan
-
-Goal normotension
-May discontinue Clopidogrel, continue ASA based on absence of acute stroke
-May discontinue Neurologic checks NIH stroke scale
-Goal normoglycemia
-Continue current dose of statin
-Speech therapy evaluation, formerly had had PEG tube removed after previous stroke
Will follow as needed.
Neuro Assessment/Plan
Assessment
78-year-old woman with a past medical history of previous ischemic stroke, congestive heart failure, presents to the hospital with acute on chronic hypoxic respiratory failure thought to be multifactorial from aspiration pneumonia, CHF and chronic
lung disease
CT head noncontrast showed findings suspicious for new infarcts compared to her previous brain imaging
MRI of the head and MRA of the head and neck without acute or interventional characteristics
Risk factors for stroke include previous stroke, hypertension, diabetes, CKD CHF and previous CABG indicating coronary artery disease
Plan
-Goal normotension
-May discontinue Clopidogrel, continue ASA based on absence of acute stroke
-May discontinue Neurologic checks NIH stroke scale
-Goal normoglycemia
-Continue current dose of statin
-Speech therapy evaluation, formerly had had PEG tube removed after previous stroke
Subjective/Objective
Subjective Data
Date of Service: February 21, 2024
Objective Data
Vital Signs
Temp Pulse Resp BP Pulse Ox
36.7 C 79 22 129/78 96
02/21/24 03:41 02/21/24 03:41 02/21/24 03:41 02/21/24 03:41 02/21/24 03:41
Lab Results
02/21/24 04:14
02/21/24 04:14
Sodium 139 mmol/L (135-145) 02/21/24 04:14
Potassium 3.5 mmol/L (3.5-5.1) 02/21/24 04:14
BUN 63 mg/dl (7-17) H 02/21/24 04:14
Glucose 160 mg/dl (70-99) H 02/21/24 04:14
Calcium 9.8 mg/dl (8.4-10.2) 02/21/24 04:14
Vby-X-Okxvfxqhvau Pept 2480 pg/ml 02/16/24 12:24
Patient Allergies
adhesive Allergy (Verified 12/26/23 14:38)
BANDAIDS-REDNESS AND RASH
hydromorphone [From Dilaudid] Allergy (Verified 12/26/23 14:38)
CONFUSION
Data Reviewed
-
MRI Head: Report Reviewed
MRA Head: Report Reviewed
MRA Neck: Report Reviewed
Labs: Report Reviewed
Reviewed with: Physician
Old Records: Summarized
[2024-02-21] MEDS: DUONEB 3 ML INH ×3 (07:29→20:32)
[2024-02-21 07:39] LABS: Glucose - Point of Care 147 mg/dl (70-99)
[2024-02-21] MEDS: NOVOLOG FLEXPEN-LOW RESISTANCE SC (07:52)
--- NOTE | 2024-02-21 08:30 | W.PN.HOSP.TC ---
Today's Communication/Plan
-
Oxygen supplementation. IV antibiotics.
Assessment / Plan
Assessment / Plan
Physical exam:
General: Acutely ill
HEENT: Normocephalic, Atraumatic and Moist Mucous Membranes
Respiratory: Bilateral coarse rhonchi; Negative Wheezes, no crackles.
Cardiac: Regular Rhythm and S1/S2
GI: Soft, Nontender and Nondistended
Musculoskeletal: Bilateral edema. No Clubbing, No Cyanosis
Neuro: Awake, Alert. Dysarthria present. Left-sided weakness. Ataxia.
Psych: Calm
A/P:
Acute on chronic hypoxic respiratory failure:
-Multifactorial including aspiration pneumonia, CHF, restrictive lung disease and obstructive lung disease
-Continue supplemental oxygen, at some point she was down to 6 L yesterday but overnight back up to 15 L and this morning she is on 12 L of oxygen
-Continue diuretics, IV Lasix 40 mg twice a day but change to once daily (Wt down from 84 to 77 kg and up 79 today)
-Continue IV antibiotics, Unasyn
-Pulmonary following
Ruled out CVA:
-MRI brain negative for acute cva
-Continue aspirin and statin
-History of CVA in the past and dysphagia with peg tube removed and passed/she had been on a pur�ed and thin liquid diet at [facility]. Now npo.
-Neurology following
Dysphagia:
-Speech therapy recommended puree diet since 02/19
Acute on chronic diastolic congestive heart failure:
-IV diuretics, IV Lasix 40 mg twice a day change to once a day
-Monitor strict I/O
-Monitor daily weight, Wt down from 84 to 77 and up 79 kg today
-Monitor renal function and electrolytes
-Reviewed latest echocardiogram on our system
-Continue guideline-directed medical therapy for heart failure (GDMT)
-Fluid restriction
-Salt restriction
-Heart failure education
-Follow up clinical response
Aspiration pneumonia:
-Continue IV antibiotics, Unasyn
CKD stage IIIb:
-Creat 1.2 today appears close to baseline
-Follow BMP
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
-Continue aspirin, statin
Hypertension:
-continue Norvasc, Lasix, avoid hypotension
�Hold all nephrotoxic agents
Diabetes mellitus type 2 on insulin:
-cont insulin with ISS
HLD:
-Continue atorvastatin 40 mg at bedtime
Anxiety:
-Continue clonazepam hold for sedation
-Sertraline
Gout:
-allopurinol, colchicine continued
GERD:
-PPI continued
COVID- infection 2019
DVT prophylaxis -Heparin subcu
DNR
Total time spent on today's encounter was 52 minutes which included time spent in counseling the patient/family regarding diagnosis and treatment plan as listed above, goals of care, and symptom management. Case was discussed with nursing staff,
specialists, and care coordinators/case management. All labs and imaging personally reviewed by me. Remainder the time spent in detailed review of previous records, lab data, imaging, and other medical provider documentation.
Anticipated Discharge: > 48 hours
Subjective/Interval History
-
Date of Service: February 21, 2024
Patient seen and examined. She does have some cough. On supplemental oxygen. Afebrile
Objective Data
-
Labs:
Laboratory Results
02/21/24
04:14
WBC 11.3 H
Hgb 11.7 L
Hct 40.4
Plt Count 303
Sodium 139
Potassium 3.5
Chloride 86 L
Carbon Dioxide 38 H
BUN 63 H
Creatinine 1.2 H
Glucose 160 H
Calcium 9.8
Vital Signs:
Vital Signs
Temp Pulse Resp BP Pulse Ox
98.4 F 94 22 127/72 92
02/21/24 07:30 02/21/24 07:33 02/21/24 07:33 02/21/24 07:30 02/21/24 07:33
I&O
02/20/24 02/21/24 02/22/24
06:59 06:59 06:59
Intake Total 1020 / 1020
Output Total 2400 / 2400 900 / 900
Balance -2400 / -2400 120 / 120
--- NOTE | 2024-02-21 09:11 | W.PN.PUL3 ---
Today's Communication / Plan
-
Wheezing more today, increased O2 requirements to 10L from 6L
Obtain repeat CXR
Continue diuresis/nebs
VSE reviewed with increased aspiration risk
Difficult situation given her dementia history
Assessment
-
Patient is an 78-year-old female with history of untreated suspected YELITZA/OHS, obesity, dementia, sedentary lifestyle, Chronic HFpEF presenting from [facility] with SOB/cough and hypoxemia, reportedly pulse ox in the low 80s at facility.� She
was given DuoNeb via nonrebreather by EMS with pulse ox improving into the upper 90s.� On arrival to ER, ABG with compensated CO2 retention pH 7.38/74. She is placed on BIPAP and admitted to IMU.
Acute hypoxic respiratory failure
Baseline use of 2L, placed on 8L midflow in ER
Chronic compensated hypercarbic respiratory failure, on BIPAP
Recent admission 01/21or heart failure exacerbation
Hyponatremia
Hypochloremic metabolic alkalosis
Hyperglycemia
Subacute HFpEF, proBNP 2480
Conditions present [employer]:
Acute hypoxic respiratory insufficiency, admitted 03/27/20
Positive Covid, 03/27/20
Restrictive lung disease/obstructive lung disease
Lifelong nonsmoker
Spirometry-FEV1 850 mL (40%), FVC 42%, 8% BD response
DuoNeb/Pulmicort in outpx
Peripheral Eosinophilia in the past
CAD with h/o CABG 12/2017
Hypertension
Hyperlipidemia
Diabetes-type 2
Chronic renal insufficiency-serum creatinine 1.2-1.4
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
Dysphagia, aspiration risk
Obesity
Suspected sleep disorder breathing
History of mentally challenged
Sedentary lifestyle
Depression
Reflux
Anxiety
Cognitive dysfunction/dementia
DNR
Plan
Respiratory status worsening, now on 10L NC, wean as tolerated
She had previously been weaned to 2L at last admission
ABG reviewed wtih chronic compensation but worsened overall, BIPAP now
Continue BiPAP through night and PRN
Follow VBG as needed
DuoNebs as needed
No indication for steroids at this time
CT Head noted, new right centrum semiovale and left frontal lobe CVAs
Neuro following
Aspiration precautions
Speech eval in past 2018- Patient judged to be at elevated risk for aspiration given impulsivity, reduced breathing/swallowing coordination, respiratory compromise requiring supplemental O2, prior hx of dysphagia.�
Recommend cautious intake of DYS I/NTL w/ strict aspiration precautions, meds whole/crushed w/ applesauce and supervision w/ intake d/t impulsivity.
Previous VSE reviewed with signs of aspiration
Report showed deep penetration of nectar thick liquids via cup and mary aspiration of pureed consistencies.
Repeat video swallow ordered by Dr. Gabriel--showing mild-mod risk
History of PEG placement, which was reversed
She has no obvious infiltrate on CXR this admission
Continue diuresis as tolerated
Monitor renal function, electrolytes, intake/output, lower extremity edema and weight
Continue to replace electrolytes as needed
Risk factors assessed for underlying sleep disordered breathing also noted, recommend outpatient PSG/sleep evaluation
Suspect YELITZA/OHS
ABG indicating compensated chronic CO2 retention
Unsure if her baseline cognition will limit PAP use
The patient has been seen in our office (last visit 2019) and instructed to have sleep study that she never followed up with.
She does not recall this discussion.
Weight loss measures recommended
Obesity contributing to respiratory symptoms
DVT prophylaxis-on subcu heparin
GI prophylaxis-on famotidine
Nutrition
Early mobilization/physical therapy
Reviewed with nursing as well as Dr. Gabriel
Suspected YELITZA/obesity hypoventilation syndrome
Outpatient pulmonary/sleep disorders follow-up recommended-last seen in the office 2019 and never followed up
Overall GOC may need to be discussed in a patient with dementia and chronic mod-severe conditions
Diagnostic Data
CXR 02/19/24- Overall slight improvement in lung volumes. Persistent mild interstitial edema. Cardiomegaly.
02/16/24- Mild pulmonary edema
CXR 12/26/23- Moderate interstitial pulmonary edema.
Chest X-Ray: 08/26/23- faint R basilar infiltrate. Sternotomy wiring
CXR 08/16/21- No active cardiopulmonary disease. Stable postoperative changes. Stable perihilar interstitial scarring extending into the mid portions of both lungs.
CT Head 02/20/24: 1. Foci of hypoattenuation within the right centrum semiovale and left frontal lobe, unchanged compared to most recent CT dated 02/19/2024, however new compared to a prior study dated 11/13/2012. Foci are suspicious for infarction,
consider MRI for further characterization.
2. Cerebral atrophy, mild small vessel ischemic change.
3. Mild paranasal sinus change.
CT Scan: CHEST 08/27/23- LUNGS: There is a consolidative airspace opacity with air bronchograms in the right lower lobe that is suspicious for pneumonia. Trace right pleural fluid is present. There is no pneumothorax. Overall evaluation of the lung
parenchyma is somewhat limited by respiratory motion artifact. The trachea and central airways are patent.
11/24/19 Chest - 1. � Very limited study of the pulmonary arteries. No central pulmonary embolism. Beyond the central pulmonary arteries, the interlobar, segmental and subsegmental arteries are not evaluable.
2. � Severe generalized bronchial disease. In the right lower lobe, near occlusion of the segmental and subsegmental bronchi likely from bronchitis and underlying bronchomalacia.
3. � Multisegment right lower lobe partial collapse and consolidation.
4. � Elsewhere, hypoventilation, linear scarring or atelectasis. No sign of congestive heart failure.
5. � Mild cardiac dilation. Severe atherosclerosis post CABG.
Echo: 08/29/23- Normal biventricular size and systolic function without regional wall motion abnormality. Estimated LVEF 60-65%.�Stage II diastolic dysfunction suggestive of abnormal relaxation and increased�filling pressures.
Moderate mitral stenosis. Mean gradient is 7-8mmHg. Mild to moderate mitral�regurgitation.�Aortic sclerosis without stenosis.�Moderate tricuspid regurgitation. Mildly elevated PASP. Estimated pulmonary�artery pressure of 44 mmHg. Assuming a right
atrial pressure of 8 mmHg.�Compared to 01/18/18: moderate MS and TR are now present. PASP has increased�from 30 mmHg to 44 mmHg.
�
PFT's: Kenji 01/02/18- FEV1 0.85L 48%, FVC 1.0L 42%, ratio 85. Post FEV1 0.92L 52%, no BD response (mixed pattern, mod-severely reduced)
Prior ECHO-stage II DD, moderate MS, moderate PH
Noted h/o CAD s/p CABG Dec 2017
Holter 2020 CONCLUSION: Sinus, average 71 BPM.� Range 41�111 T-pin.� Very rare ectopy.� Flynn noted
Video Swallow Examination: Patient presents with�at least mild-moderate oral and mild pharyngeal stage of swallowing.� No aspiration occurred - but risk may be elevated given current respiratory status (i.e., need for increased respiratory support,
hx tachypnea).
Recommend: IDDSI Level 4 (puree), IDDSI Level 0 (thin); 2. Medications - in puree; 3. Strategies:�full�supervision with PO intake, upright to 90 degrees,�small SINGLE sips/bites,�slow rate, breaks for breathing, monitor respiratory status closely
with�PO only when RR <30 and SpO2 > 90%, reflux precautions
Subjective Data
-
Date of Service:
Date of Service: February 21, 2024
Chief Complaint: Pulmonary Follow Up and Dyspnea Follow Up
Objective Data
Data Reviewed
Vital Signs / I&O / Oxygen:
Vital Signs
Temp Pulse Resp BP Pulse Ox
98.4 F 94 22 127/72 92
02/21/24 07:30 02/21/24 07:33 02/21/24 07:33 02/21/24 07:30 02/21/24 07:33
Intake and Output
02/20/24 02/21/24 02/22/24
06:59 06:59 06:59
Intake Total 1020 / 1020
Output Total 2400 / 2400 900 / 900
Balance -2400 / -2400 120 / 120
SaO2 92
Nasal Cannula flow liters per 6
minute
Physical Exam
General: Respiratory Distress (n), Comfortable and Other (NAD)
HEENT: Normocephalic, Anicteric and Moist Mucous Membranes
Cardiovascular: Regular Rhythm
Respiratory: Clear, Wheeze (Few expiratory), Crackles (Basilar), Rhonchi (Expiratory), Non-Labored Respirations, Accessory Resp Muscle Use (n) and Stridor (n)
GI: Soft, Non Distended and Non Tender
Neurology: Awake, Alert and No Motor Deficits
Skin: Warm, Good Color, Cyanosis (n), Jaundice (n) and Rash (n)
Labs/Micro/Reports
Lab Data
02/21/24 04:14
02/21/24 04:14
[2024-02-21] MEDS: ZYLOPRIM 300 MG PO (09:18)
[2024-02-21] MEDS: ASPIRIN ENTERIC COATED 325 MG PO (09:19)
[2024-02-21] MEDS: MUCINEX 600 MG PO ×2 (09:19→19:22)
[2024-02-21] MEDS: HEPARIN 5000 UNITS SC ×2 (09:20→19:22)
[2024-02-21] MEDS: SENOKOT 8.59999999999999964 MG PO ×2 (09:20→19:22)
[2024-02-21] MEDS: VITAMIN D3 (cholecalciferol) 25 MCG PO (09:20)
[2024-02-21] MEDS: LASIX 40 MG IV (09:24)
[2024-02-21] MEDS: COLACE 100 MG PO ×2 (09:25→19:22)
[2024-02-21] MEDS: KLONOPIN 0.5 MG PO ×2 (09:25→19:23)
[2024-02-21] MEDS: NORVASC 10 MG PO (09:25)
[2024-02-21] MEDS: METAMUCIL, KONSYL 1 PACKET PO (09:26)
[2024-02-21] MEDS: UNASYN IV ×2 (09:26→21:39)
[2024-02-21] MEDS: LIDOCAINE 4% PATCH 1 PATCH TOPICAL (09:27)
[2024-02-21] MEDS: FLUSH (NSS) 3 FLUSH IV (09:28)
[2024-02-21] MEDS: DESENEX/MITRAZOL/ZEASORB 1 APPLIC TOPICAL ×2 (09:31→19:28)
[2024-02-21] MEDS: ZOLOFT 25 MG PO (09:35)
[2024-02-21] MEDS: FLUSH (NSS) 1 FLUSH IV (10:15)
[2024-02-21] MEDS: MAGNESIUM SULFATE 50 IV (10:20)
--- NOTE | 2024-02-21 12:13 | CM ---
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
Spoke with Jeri at [facility] pt accepted back when medically ready.
BIPAP setting faxed to [facility] as per request.
Oxygen 12 liter mid flow Pox 94%.
Jono
report (P) [phone]
fax [phone].
Return to [facility]
[2024-02-21 12:25] LABS: Glucose - Point of Care 224 mg/dl (70-99)
[2024-02-21] MEDS: NOVOLOG FLEXPEN-LOW RESISTANCE 2 UNITS SC ×2 (12:46→17:31)
[2024-02-21 17:26] LABS: Glucose - Point of Care 241 mg/dl (70-99)
[2024-02-21] MEDS: LANTUS 0.200000000000000011 UNITS SC (17:31)
[2024-02-21] MEDS: MAG-TAB SR 84 MG PO (19:22)
[2024-02-21] MEDS: PEPCID 20 MG PO (21:38)
[2024-02-21] MEDS: LIPITOR 40 MG PO (21:39)
[2024-02-21 21:48] LABS: Glucose - Point of Care 234 mg/dl (70-99)
[2024-02-22] VITALS (7 sets, daily range): BP systolic 118–137; BP diastolic 57–71; PULSE 2–83; BMI 33.6
[2024-02-22 04:53] LABS: % Basophils 0.4 % (0-2); % Eosinophils 7.5 % (0-6); % Immature Granulocytes 0.5 % (0-0.5); % Neutrophils 65.6 % (42.2-75.2); Absolute Basophils 0.1 10^3/uL (0-0.2); Absolute Eosinophils 0.9 10^3/uL (0-0.7); Absolute Immature Granulocytes 0.1 10^3/uL (0-0.05); Absolute Lymphocytes 2.6 10^3/uL (1.2-3.4); Absolute Monocytes 0.6 10^3/uL (0.1-0.6); Absolute Neutrophils 8.2 10^3/uL (1.4-6.5); Hematocrit 37.1 % (37.0-47.0); Hemoglobin 10.8 g/dL (12.0-16.0); Mean Corp Hgb Conc. 29.1 g/dL (33.0-37.0); Mean Corpuscular Hgb 24.2 pg (27.0-31.0); Mean Platelet Volume 10.6 fL (7.4-10.4); Nucleated Red Blood Cells % 0 %; Platelet Count 306 10^3/uL (130-400); Red Blood Cell Count 4.47 10^6/uL (4.20-5.40); Red Cell Dist. Width 17.3 % (11.5-14.5); White Blood Cell Count 12.5 10^3/uL (4.8-10.8)
[2024-02-22 05:33] LABS: Blood Urea Nitrogen 60 mg/dl (7-17); Calcium 9.6 mg/dl (8.4-10.2); Chloride 84 mmol/L (98-107); Estimated Creatinine Clearance 33 ml/min; Glucose 126 mg/dl (70-99); Potassium 3.3 mmol/L (3.5-5.1); Sodium 136 mmol/L (135-145); eGFR 41.57
[2024-02-22 05:48] LABS: Carbon Dioxide 39 mmol/L (22-30)
--- NOTE | 2024-02-22 07:21 | W.PN.HOSP.TC ---
Today's Communication/Plan
-
IV antibiotics. IV Lasix. Cardiology eval
Assessment / Plan
Assessment / Plan
Physical exam:
General: Acutely ill
HEENT: Normocephalic, Atraumatic and Moist Mucous Membranes
Respiratory: Bilateral coarse rhonchi; Negative Wheezes, no crackles.
Cardiac: Regular Rhythm and S1/S2
GI: Soft, Nontender and Nondistended
Musculoskeletal: Bilateral edema. No Clubbing, No Cyanosis
Neuro: Awake, Alert. Dysarthria present. Left-sided weakness. Ataxia.
Psych: Calm
A/P:
Acute on chronic hypoxic respiratory failure:
-Multifactorial including aspiration pneumonia, CHF, restrictive lung disease and obstructive lung disease
-Continue supplemental oxygen, currently she is on 12 L of oxygen
-Continue diuretics, IV Lasix increased to 80 mg once daily (Wt 80.6 kg today)
-Continue IV antibiotics, Unasyn
-Pulmonary following
-Cardiology consult
Ruled out CVA:
-MRI brain negative for acute cva
-Continue aspirin and statin
-History of CVA in the past and dysphagia with peg tube removed and passed/she had been on a pur�ed and thin liquid diet at skilled nursing. Now npo.
-Neurology following
Dysphagia:
-Speech therapy recommended puree diet since 02/19
Acute on chronic diastolic congestive heart failure:
-IV diuretics, IV Lasix increased to 80 mg once daily
-Monitor strict I/O
-Monitor daily weight, Wt 80.6 kg today
-Monitor renal function and electrolytes
-Reviewed latest echocardiogram on our system
-Continue guideline-directed medical therapy for heart failure (GDMT)
-Fluid restriction
-Salt restriction
-Heart failure education
-Follow up clinical response
Aspiration pneumonia:
-Continue IV antibiotics, Unasyn
-Obtain sputum culture
CKD stage IIIb:
-Creat 1.3 today appears close to baseline but bumped up today
-Follow BMP
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
-Continue aspirin, statin
Hypertension:
-continue Norvasc, Lasix, avoid hypotension
�Hold all nephrotoxic agents
Diabetes mellitus type 2 on insulin:
-cont insulin with ISS
HLD:
-Continue atorvastatin 40 mg at bedtime
Anxiety:
-Continue clonazepam hold for sedation
-Sertraline
Gout:
-allopurinol, colchicine continued
GERD:
-PPI continued
COVID- infection 2019
DVT prophylaxis -Heparin subcu
DNR
Total time spent on today's encounter was 52 minutes which included time spent in counseling the patient/family regarding diagnosis and treatment plan as listed above, goals of care, and symptom management. Case was discussed with nursing staff,
specialists, and care coordinators/case management. All labs and imaging personally reviewed by me. Remainder the time spent in detailed review of previous records, lab data, imaging, and other medical provider documentation.
Anticipated Discharge: > 48 hours
Subjective/Interval History
-
Date of Service: February 22, 2024
Patient with some shortness of breath. Some cough. Remains on supplemental oxygen.
Objective Data
-
Labs:
Laboratory Results
02/22/24
04:12
WBC 12.5 H
Hgb 10.8 L
Hct 37.1
Plt Count 306
Sodium 136
Potassium 3.3 L
Chloride 84 L
Carbon Dioxide 39 H
BUN 60 H
Creatinine 1.3 H
Glucose 126 H
Calcium 9.6
Vital Signs:
Vital Signs
Temp Pulse Resp BP Pulse Ox
98.4 F 65 20 137/71 96
02/22/24 03:45 02/22/24 03:45 02/22/24 03:45 02/22/24 03:45 02/22/24 03:45
I&O
02/21/24 02/22/24 02/23/24
06:59 06:59 06:59
Intake Total 1020 / 1020 1150 / 1150
Output Total 900 / 900 300 / 300
Balance 120 / 120 850 / 850
[2024-02-22] MEDS: DUONEB 3 ML INH ×2 (07:39→20:45)
[2024-02-22 07:42] LABS: Glucose - Point of Care 109 mg/dl (70-99)
[2024-02-22] MEDS: NOVOLOG FLEXPEN-LOW RESISTANCE SC (08:47)
[2024-02-22] MEDS: VITAMIN D3 (cholecalciferol) 25 MCG PO (09:46)
[2024-02-22] MEDS: NORVASC 10 MG PO (09:47)
[2024-02-22] MEDS: MUCINEX 600 MG PO ×2 (09:48→20:16)
[2024-02-22] MEDS: MAG-TAB SR 84 MG PO ×2 (09:49→20:17)
[2024-02-22] MEDS: ASPIRIN ENTERIC COATED 325 MG PO (09:49)
[2024-02-22] MEDS: ZOLOFT 25 MG PO (09:49)
[2024-02-22] MEDS: ZYLOPRIM 300 MG PO (09:50)
[2024-02-22] MEDS: SENOKOT 8.59999999999999964 MG PO ×2 (09:50→20:16)
[2024-02-22] MEDS: COLACE 100 MG PO ×2 (09:50→20:16)
[2024-02-22] MEDS: LASIX 40 MG IV (09:51)
[2024-02-22] MEDS: KCL 40 MEQ PO ×2 (09:51→12:49)
[2024-02-22] MEDS: HEPARIN 5000 UNITS SC ×2 (09:53→20:16)
[2024-02-22] MEDS: METAMUCIL, KONSYL 1 PACKET PO (09:53)
[2024-02-22] MEDS: LIDOCAINE 4% PATCH 1 PATCH TOPICAL (09:53)
--- NOTE | 2024-02-22 09:53 | W.PN.PUL3 ---
Today's Communication / Plan
-
Worsening respiratory status, now on 12L NC
CXR showing more edema, lasix IV ongoing
Repeat proBNP
Speech following for diet recs
She is DNR
If deteriorating further, may need for consider GOC discussions with family
Assessment
-
Patient is an 78-year-old female with history of untreated suspected YELITZA/OHS, obesity, dementia, sedentary lifestyle, Chronic HFpEF presenting from [facility] with SOB/cough and hypoxemia, reportedly pulse ox in the low 80s at facility.� She
was given DuoNeb via nonrebreather by EMS with pulse ox improving into the upper 90s.� On arrival to ER, ABG with compensated CO2 retention pH 7.38/74. She is placed on BIPAP and admitted to IMU.
Acute hypoxic respiratory failure
Baseline use of 2L, placed on 8L midflow in ER
Chronic compensated hypercarbic respiratory failure, on BIPAP
Recent admission /01/21 for heart failure exacerbation
Hyponatremia
Hypochloremic metabolic alkalosis
Hyperglycemia
Subacute HFpEF, proBNP 2480
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
Acute hypoxic respiratory insufficiency, admitted 03/27/20
Positive Covid, 03/27/20
Restrictive lung disease/obstructive lung disease
Lifelong nonsmoker
Spirometry-FEV1 850 mL (40%), FVC 42%, 8% BD response
DuoNeb/Pulmicort in outpx
Peripheral Eosinophilia in the past
CAD with h/o CABG 12/2017
Hypertension
Hyperlipidemia
Diabetes-type 2
Chronic renal insufficiency-serum creatinine 1.2-1.4
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
Dysphagia, aspiration risk
Obesity
Suspected sleep disorder breathing
History of mentally challenged
Sedentary lifestyle
Depression
Reflux
Anxiety
Cognitive dysfunction/dementia
DNR
Plan
Respiratory status worsening, now on 12L NC, wean as tolerated
She had previously been weaned to 2L at last admission
ABG reviewed wtih chronic compensation but worsened overall, BIPAP now
Continue BiPAP through night and PRN
Follow VBG as needed
DuoNebs as needed
No indication for steroids at this time
CT Head noted, new right centrum semiovale and left frontal lobe CVAs
Neuro following
Aspiration precautions
Speech eval in past 2019- Patient judged to be at elevated risk for aspiration given impulsivity, reduced breathing/swallowing coordination, respiratory compromise requiring supplemental O2, prior hx of dysphagia.�
Recommend cautious intake of DYS I/NTL w/ strict aspiration precautions, meds whole/crushed w/ applesauce and supervision w/ intake d/t impulsivity.
Previous VSE reviewed with signs of aspiration
Report showed deep penetration of nectar thick liquids via cup and mary aspiration of pureed consistencies.
Repeat video swallow ordered by Dr. Gabriel--showing mild-mod risk
History of PEG placement, which was reversed
Speech following with continued PO diet
Continue diuresis as tolerated
Monitor renal function, electrolytes, intake/output, lower extremity edema and weight
Continue to replace electrolytes as needed
Repeat CXR showing worsening congestion
IV lasix ongoing
Cards eval
Risk factors assessed for underlying sleep disordered breathing also noted, recommend outpatient PSG/sleep evaluation
Suspect YELITZA/OHS
ABG indicating compensated chronic CO2 retention
Unsure if her baseline cognition will limit PAP use
The patient has been seen in our office (last visit 2019) and instructed to have sleep study that she never followed up with.
She does not recall this discussion.
Weight loss measures recommended
Obesity contributing to respiratory symptoms
DVT prophylaxis-on subcu heparin
GI prophylaxis-on famotidine
Nutrition
Early mobilization/physical therapy
Reviewed with nursing as well as Dr. Gabriel
Suspected YELITZA/obesity hypoventilation syndrome
Outpatient pulmonary/sleep disorders follow-up recommended-last seen in the office 2019 and never followed up
Overall GOC may need to be discussed in a patient with dementia and chronic mod-severe conditions
Diagnostic Data
CXR 02/19/24- Overall slight improvement in lung volumes. Persistent mild interstitial edema. Cardiomegaly.
02/16/24- Mild pulmonary edema
CXR 12/26/23- Moderate interstitial pulmonary edema.
Chest X-Ray: 08/26/23- faint R basilar infiltrate. Sternotomy wiring
CXR 08/16/21- No active cardiopulmonary disease. Stable postoperative changes. Stable perihilar interstitial scarring extending into the mid portions of both lungs.
CT Head 02/20/24: 1. Foci of hypoattenuation within the right centrum semiovale and left frontal lobe, unchanged compared to most recent CT dated 02/19/2024, however new compared to a prior study dated 11/13/2012. Foci are suspicious for infarction,
consider MRI for further characterization.
2. Cerebral atrophy, mild small vessel ischemic change.
3. Mild paranasal sinus change.
CT Scan: CHEST 08/27/23- LUNGS: There is a consolidative airspace opacity with air bronchograms in the right lower lobe that is suspicious for pneumonia. Trace right pleural fluid is present. There is no pneumothorax. Overall evaluation of the lung
parenchyma is somewhat limited by respiratory motion artifact. The trachea and central airways are patent.
11/24/19 Chest - 1. � Very limited study of the pulmonary arteries. No central pulmonary embolism. Beyond the central pulmonary arteries, the interlobar, segmental and subsegmental arteries are not evaluable.
2. � Severe generalized bronchial disease. In the right lower lobe, near occlusion of the segmental and subsegmental bronchi likely from bronchitis and underlying bronchomalacia.
3. � Multisegment right lower lobe partial collapse and consolidation.
4. � Elsewhere, hypoventilation, linear scarring or atelectasis. No sign of congestive heart failure.
5. � Mild cardiac dilation. Severe atherosclerosis post CABG.
Echo: 08/29/23- Normal biventricular size and systolic function without regional wall motion abnormality. Estimated LVEF 60-65%.�Stage II diastolic dysfunction suggestive of abnormal relaxation and increased�filling pressures.
Moderate mitral stenosis. Mean gradient is 7-8mmHg. Mild to moderate mitral�regurgitation.�Aortic sclerosis without stenosis.�Moderate tricuspid regurgitation. Mildly elevated PASP. Estimated pulmonary�artery pressure of 44 mmHg. Assuming a right
atrial pressure of 8 mmHg.�Compared to 01/18/18: moderate MS and TR are now present. PASP has increased�from 30 mmHg to 44 mmHg.
�
PFT's: Kenji 01/02/18- FEV1 0.85L 48%, FVC 1.0L 42%, ratio 85. Post FEV1 0.92L 52%, no BD response (mixed pattern, mod-severely reduced)
Prior ECHO-stage II DD, moderate MS, moderate PH
Noted h/o CAD s/p CABG Dec 2017
Holter 2020 CONCLUSION: Sinus, average 71 BPM.� Range 41�111 T-pin.� Very rare ectopy.� Flynn noted
Video Swallow Examination: Patient presents with�at least mild-moderate oral and mild pharyngeal stage of swallowing.� No aspiration occurred - but risk may be elevated given current respiratory status (i.e., need for increased respiratory support,
hx tachypnea).
Recommend: IDDSI Level 4 (puree), IDDSI Level 0 (thin); 2. Medications - in puree; 3. Strategies:�full�supervision with PO intake, upright to 90 degrees,�small SINGLE sips/bites,�slow rate, breaks for breathing, monitor respiratory status closely
with�PO only when RR <30 and SpO2 > 90%, reflux precautions
Subjective Data
-
Date of Service:
Date of Service: February 22, 2024
Chief Complaint: Pulmonary Follow Up and Dyspnea Follow Up
Subjective:
remains clinically unchanged
o2 requirements increasing despite treatment
Objective Data
Data Reviewed
Vital Signs / I&O / Oxygen:
Vital Signs
Temp Pulse Resp BP Pulse Ox
98.2 F 88 20 118/63 93
02/22/24 07:57 02/22/24 07:57 02/22/24 07:57 02/22/24 07:57 02/22/24 07:57
Intake and Output
02/21/24 02/22/24 02/23/24
06:59 06:59 06:59
Intake Total 1020 / 1020 1150 / 1150
Output Total 900 / 900 300 / 300
Balance 120 / 120 850 / 850
SaO2 93
Nasal Cannula flow liters per 10
minute
Physical Exam
General: Respiratory Distress (n), Comfortable and Other (NAD)
HEENT: Normocephalic, Anicteric and Moist Mucous Membranes
Cardiovascular: Regular Rhythm
Respiratory: Wheeze (Few expiratory), Crackles (Basilar), Rhonchi (Expiratory), Non-Labored Respirations, Accessory Resp Muscle Use (n) and Stridor (n)
GI: Soft, Non Distended and Non Tender
Neurology: Awake, Alert and No Motor Deficits
Skin: Warm, Good Color, Cyanosis (n), Jaundice (n) and Rash (n)
Labs/Micro/Reports
Lab Data
02/22/24 04:12
02/22/24 04:12
[2024-02-22] MEDS: UNASYN IV ×2 (09:57→21:18)
[2024-02-22] MEDS: DESENEX/MITRAZOL/ZEASORB 1 APPLIC TOPICAL ×2 (09:57→20:25)
[2024-02-22] MEDS: KLONOPIN 0.5 MG PO ×2 (10:06→20:16)
[2024-02-22] MEDS: DULCOLAX 10 MG RECTAL (10:14)
--- NOTE | 2024-02-22 10:36 | CON.CAR ---
Addendum entered and electronically signed by Mariano Alcaraz MD 02/22/24 12:04:
78 yo male with PMH of chronic HFPEF, moderate MR/MS is admitted with hypoxia. She feels somewhat better since admission. Exam with RRR, II/ systolic murmur at apex, trace LE edema.
Hypoxia/SOB likely multifactorial. There is concern for aspiration PNA. Component of acute on chronic HFPEF. Was taking lasix 80mg PO daily as outpatient. Will increase lasix to 80mg IV daily and trend Cr, weight, tele.
Original Note:
Consultation
Consultation Request
Date/Time Consultation Requested: 02/21/24 1840
Date/Time Consultation Performed: 02/22/24 1000
Requesting Provider: Dr. Lora
Performing Provider: Merline SANTOYO for Dr. Alcaraz
Reason for Consultation: CHF, hypoxia
Medical History
-
Chief Complaint: hypoxia
History of Present Illness:
78 y/o female who follows with Dr. Lau for cardiology and has a history of cognitive impairment, DM2, HFpEF, CKD3B, CAD s/p CABG, CVA, moderate MS/MR, CHB s/p [employer] pacemaker who is here from [facility] due to low pulse
oximetry. She has had cough (productive) and SOB as well. She is being treated for aspiration PNA. She also has restrictive and obstructive lung disease, and pulmonary is following. We are consulted due to CHF.
Past Medical History
Past Medical History: CAD, CHF, CVA, NIDDM and Other (as above)
Social History
Tobacco: Non-Smoker
Living: Detention
Family History
Family History: Reviewed & Not Pertinent
Allergies / Home Medications
Allergy/AdvReac Type Severity Reaction Status Date / Time
adhesive Allergy BANDAIDS-REDNESS Verified 12/26/23 14:38
AND RASH
hydromorphone [From Dilaudid] Allergy CONFUSION Verified 12/26/23 14:38
�Medication �Instructions �Recorded �Confirmed �Type
dextran 70-hypromellose eye drops 1 drp BOTH EYES Q8HPRN PRN dry eyes 08/16/21 02/16/24 History
in a dropperette (Artificial Tears
(PF) drops in a dropperette)
lidocaine 4 % topical patch 1 patch topical DAILY lower back 08/26/23 02/16/24 History
Pain
bisacodyl 10 mg rectal suppository 10 mg AR [id number] PRN if no bm by 09/09/23 02/16/24 History
(Dulcolax (bisacodyl)) 3rd day
clonazepam 0.5 mg tablet 0.5 mg PO BID Mental Health/Anxiety 09/09/23 02/16/24 History
magnesium hydroxide 400 mg/5 mL 30 ml PO HSPRN PRN if no bm x 2 09/09/23 02/16/24 History
oral suspension (Milk of Magnesia) days
sodium phosphates 19 gram-7 118 ml AR DAILYPRN PRN if no bm x 09/09/23 02/16/24 History
gram/118 mL enema (Fleet Enema) 4 days
acetaminophen 325 mg capsule 650 mg PO Q6HPRN PRN mild 10/12/23 02/16/24 History
(Tylenol) pain/fever >100
amlodipine 10 mg tablet 10 mg PO DAILY Blood Pressure 10/12/23 02/16/24 History
aspirin 81 mg tablet,delayed 81 mg PO DAILY Blood Clot 10/12/23 02/16/24 History
release Prevention/Tx
atorvastatin 40 mg tablet 40 mg PO HS High Cholesterol 10/12/23 02/16/24 History
cholecalciferol (vitamin D3) 25 25 mcg PO DAILY Supplement 10/12/23 02/16/24 History
mcg (1,000 unit) tablet (Vitamin
D3)
docusate sodium 100 mg capsule 100 mg PO BID Constipation 10/12/23 02/16/24 History
famotidine 20 mg tablet (Acid 20 mg PO HS Gastrointestinal Issue 10/12/23 02/16/24 History
Controller)
sennosides 8.6 mg tablet (senna) 8.6 mg PO BID Constipation 10/12/23 02/16/24 History
sertraline 25 mg tablet 25 mg PO DAILY Depression 10/12/23 02/16/24 History
allopurinol 300 mg tablet 300 mg PO DAILY Gout 11/15/23 02/16/24 History
menthol 1 applic topical HS bilateral 11/15/23 02/16/24 History
shoulder pain
psyllium 1 packet PO DAILY Constipation 12/26/23 02/16/24 History
insulin glargine 100 unit/mL (3 35 unit (0.35 mL) SC QPM #15 mL 12/30/23 02/16/24 Rx
mL) subcutaneous pen (Lantus
Solostar U-100 Insulin)
furosemide 80 mg tablet 80 mg PO DAILY Fluid 02/16/24 02/16/24 History
Retention/Swelling
insulin lispro 100 unit/mL 0 sliding scale dose SC AC Diabetes 02/16/24 02/16/24 History
subcutaneous solution (Humalog
U-100 Insulin)
ipratropium 0.5 mg-albuterol 3 mg 3 ml inhalation R BID 02/16/24 02/16/24 History
(2.5 mg base)/3 mL nebulization Lung/Breathing Issues
soln
miconazole nitrate 2 % topical 1 applic topical BIDPRN PRN b/l 02/16/24 02/16/24 History
powder (Miconazorb AF) groin
zinc oxide-vitamin B5-vit E 11.3% 1 applic topical BID alexandro areas 02/16/24 02/16/24 History
topical cream (Balmex Adult [facility])
potassium chloride 20 mEq 20 meq PO BID Supplement 02/17/24 02/16/24 History
tablet,extended release(part/cryst)
Review of Systems
-
History Source: Patient and Other (and chart)
All other systems: Negative unless noted
Respiratory: Cough and Trouble Breathing
Physical Exam
Vital Signs
Temp Pulse Resp BP Pulse Ox
98.2 F 88 20 118/63 93
02/22/24 07:57 02/22/24 09:47 02/22/24 07:57 02/22/24 09:47 02/22/24 07:57
Lab Results
02/22/24 04:12
02/22/24 04:12
Nsi-E-Scqyoezdsis Pept 2480 pg/ml 02/16/24 12:24
Physical Exam
General: Well Developed and No Apparent Distress
HEENT: Normocephalic and Anicteric
Respiratory: Rhonchi (throughout) and Other (on high flow O2)
Cardiac: Regular Rhythm
Skin: Warm and Dry
Neuro: Awake and Alert
Psych: Calm
Impression / Plan
-
Acute hypoxic respiratory failure:
-patient being treated for aspiration PNA. She also has restrictive/obstructive lung disease and pulmonary is following. o2 requirements not improving and there is question of lpyck-rr-hczcpjg HFpEF as well. CXR today shows evidence for excess
volume. Weight is down 10 kg from last admission. However, I do note that she seems to have been on higher doses of lasix in the past- recently discharged on lasix 80 mg PO BID and per med rec currently as OP on once daily? Monitor response to
increased Iv diuretic- see below.
Obdsa-rs-qeycmsq HFpEF:
-Increase IV diuresis and monitor- this requires intensive monitoring
-echo this admit as below
-hypokalemia is noted and being replaced- follow closely.
CAD s/p CABG:
-continue ASA, statin
Hx CVA:
-neuro on case
-continue ASA, statin
Data Reviewed
-
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
Radiology: Report Reviewed by me (CXR 02/21/24: Low lung volumes. Increased pulmonary vascularity )
Medical Tests (Nuc Med, Echo etc): Report Reviewed by me (echo 02/20/24: LVEF 55-60%. Dense posterior mitral annular calcification and severe leaflet calcification. Moderate mitral stenosis. Peak/mean gradients are 12/6 mmHg. Moderate MR.)
Labs: Labs Reviewed by me
[2024-02-22] MEDS: REFRESH EYE DROPS (PF) 1 DROPS BOTH EYES (11:18)
[2024-02-22 11:23] LABS: Glucose - Point of Care 296 mg/dl (70-99)
[2024-02-22] MEDS: NOVOLOG FLEXPEN-LOW RESISTANCE 3 UNITS SC (12:49)
--- NOTE | 2024-02-22 13:39 | CM ---
When medically stable patient is to be discharged back to [facility] to resume LTC.
[2024-02-22 14:57] LABS: NT-proBNP 943 pg/ml
[2024-02-22] MEDS: LASIX 80 MG IV (15:24)
[2024-02-22 16:43] LABS: Glucose - Point of Care 202 mg/dl (70-99)
[2024-02-22] MEDS: NOVOLOG FLEXPEN-LOW RESISTANCE 2 UNITS SC (17:04)
[2024-02-22] MEDS: LANTUS 0.200000000000000011 UNITS SC (18:08)
[2024-02-22] MEDS: TYLENOL 650 MG PO (20:23)
[2024-02-22] MEDS: PEPCID 20 MG PO (21:19)
[2024-02-22] MEDS: LIPITOR 40 MG PO (21:19)
[2024-02-22 21:39] LABS: Glucose - Point of Care 249 mg/dl (70-99)
[2024-02-23] VITALS (8 sets, daily range): BP systolic 114–144; BP diastolic 47–98; PULSE 2–67; BMI 34.0
[2024-02-23 06:21] LABS: % Basophils 0.4 % (0-2); % Eosinophils 9.1 % (0-6); % Immature Granulocytes 0.3 % (0-0.5); % Lymphocytes 21.9 % (20.5-51.1); % Neutrophils 61.3 % (42.2-75.2); Absolute Basophils 0.1 10^3/uL (0-0.2); Absolute Eosinophils 1.1 10^3/uL (0-0.7); Absolute Lymphocytes 2.5 10^3/uL (1.2-3.4); Absolute Monocytes 0.8 10^3/uL (0.1-0.6); Hematocrit 34.6 % (37.0-47.0); Hemoglobin 10.5 g/dL (12.0-16.0); Mean Corp Hgb Conc. 30.3 g/dL (33.0-37.0); Mean Corpuscular Volume 82.4 fL (81.0-99.0); Mean Platelet Volume 11.1 fL (7.4-10.4); Nucleated Red Blood Cells % 0 %; Platelet Count 329 10^3/uL (130-400); Red Cell Dist. Width 17.6 % (11.5-14.5); White Blood Cell Count 11.5 10^3/uL (4.8-10.8)
[2024-02-23 06:42] LABS: Blood Urea Nitrogen 59 mg/dl (7-17); Calcium 9.6 mg/dl (8.4-10.2); Carbon Dioxide 39 mmol/L (22-30); Chloride 87 mmol/L (98-107); Estimated Creatinine Clearance 33 ml/min; Glucose 158 mg/dl (70-99); Sodium 136 mmol/L (135-145); eGFR 41.57
[2024-02-23] MEDS: DUONEB 3 ML INH ×2 (07:28→20:18)
[2024-02-23 07:46] LABS: Glucose - Point of Care 139 mg/dl (70-99)
--- NOTE | 2024-02-23 08:24 | W.PN.HOSP.TC ---
Today's Communication/Plan
-
IV Lasix. IV antibiotics.
Assessment / Plan
Assessment / Plan
Physical exam:
General: Acutely ill
HEENT: Normocephalic, Atraumatic and Moist Mucous Membranes
Respiratory: Bilateral coarse rhonchi; Negative Wheezes, no crackles.
Cardiac: Regular Rhythm and S1/S2
GI: Soft, Nontender and Nondistended
Musculoskeletal: Bilateral edema. No Clubbing, No Cyanosis
Neuro: Awake, Alert. Dysarthria present. Left-sided weakness. Ataxia.
Psych: Calm
A/P:
Acute on chronic hypoxic respiratory failure:
-Multifactorial including aspiration pneumonia, CHF, restrictive lung disease and obstructive lung disease
-Continue supplemental oxygen, currently she is on 12 L of oxygen
-Continue diuretics, IV Lasix increased to 80 mg once daily (Wt 81.4 kg today)
-Continue IV antibiotics, Unasyn
-Pulmonary following
-Cardiology consult appreciated
-Waiting for sputum culture
-Reached out to sister today but she has a medical appointment and will discuss more in detail tomorrow
-While we continue with current efforts and management I think we will start discussion about goals of care will have hospice evaluation for further discussions.
Ruled out CVA:
-MRI brain negative for acute cva
-Continue aspirin and statin
-History of CVA in the past and dysphagia with peg tube removed and passed/she had been on a pur�ed and thin liquid diet at correction. Now npo.
-Neurology following
Dysphagia:
-Speech therapy recommended puree diet since 02/19
Acute on chronic diastolic congestive heart failure:
-IV diuretics, IV Lasix increased to 80 mg once daily
-Monitor strict I/O
-Monitor daily weight, Wt 80.6 kg today
-Monitor renal function and electrolytes
-Reviewed latest echocardiogram on our system
-Continue guideline-directed medical therapy for heart failure (GDMT)
-Fluid restriction
-Salt restriction
-Heart failure education
-Follow up clinical response
Aspiration pneumonia:
-Continue IV antibiotics, Unasyn
-Obtain sputum culture
CKD stage IIIb:
-Creat 1.3 today appears close to baseline but bumped up today
-Follow BMP
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
-Continue aspirin, statin
Hypertension:
-continue Norvasc, Lasix, avoid hypotension
�Hold all nephrotoxic agents
Diabetes mellitus type 2 on insulin:
-cont insulin with ISS
HLD:
-Continue atorvastatin 40 mg at bedtime
Anxiety:
-Continue clonazepam hold for sedation
-Sertraline
Gout:
-allopurinol, colchicine continued
GERD:
-PPI continued
COVID- infection 2019
DVT prophylaxis -Heparin subcu
DNR
Total time spent on today's encounter was 52 minutes which included time spent in counseling the patient/family regarding diagnosis and treatment plan as listed above, goals of care, and symptom management. Case was discussed with nursing staff,
specialists, and care coordinators/case management. All labs and imaging personally reviewed by me. Remainder the time spent in detailed review of previous records, lab data, imaging, and other medical provider documentation.
Anticipated Discharge: > 48 hours
Subjective/Interval History
-
Date of Service: February 23, 2024
Patient still having some cough and shortness of breath. Still on supplemental oxygen.
Objective Data
-
Labs:
Laboratory Results
02/23/24
04:54
WBC 11.5 H
Hgb 10.5 L
Hct 34.6 L
Plt Count 329
Sodium 136
Potassium 4.0
Chloride 87 L
Carbon Dioxide 39 H
BUN 59 H
Creatinine 1.3 H
Glucose 158 H
Calcium 9.6
Vital Signs:
Vital Signs
Temp Pulse Resp BP Pulse Ox
98.1 F 68 20 124/54 93
02/23/24 07:20 02/23/24 07:37 02/23/24 07:37 02/23/24 07:20 02/23/24 07:37
I&O
02/22/24 02/23/24 02/24/24
06:59 06:59 06:59
Intake Total 1150 / 1150 1620 / 1620
Output Total 300 / 300 250 / 250
Balance 850 / 850 1370 / 1370
[2024-02-23] MEDS: COLACE 100 MG PO (08:29)
[2024-02-23] MEDS: NORVASC 10 MG PO (08:29)
[2024-02-23] MEDS: MUCINEX 600 MG PO ×2 (08:29→19:52)
[2024-02-23] MEDS: KLONOPIN 0.5 MG PO ×2 (08:29→19:52)
[2024-02-23] MEDS: SENOKOT 8.59999999999999964 MG PO (08:29)
[2024-02-23] MEDS: ASPIRIN ENTERIC COATED 325 MG PO (08:29)
[2024-02-23] MEDS: DESENEX/MITRAZOL/ZEASORB 1 APPLIC TOPICAL ×2 (08:29→20:00)
[2024-02-23] MEDS: ZOLOFT 25 MG PO (08:29)
[2024-02-23] MEDS: MAG-TAB SR 84 MG PO ×2 (08:29→19:54)
[2024-02-23] MEDS: VITAMIN D3 (cholecalciferol) 25 MCG PO (08:29)
[2024-02-23] MEDS: ZYLOPRIM 300 MG PO (08:29)
[2024-02-23] MEDS: METAMUCIL, KONSYL 1 PACKET PO (08:30)
[2024-02-23] MEDS: LIDOCAINE 4% PATCH 1 PATCH TOPICAL (08:31)
[2024-02-23] MEDS: HEPARIN 5000 UNITS SC ×2 (08:31→19:52)
[2024-02-23] MEDS: LASIX 80 MG IV (08:31)
[2024-02-23] MEDS: NOVOLOG FLEXPEN-LOW RESISTANCE SC (08:32)
--- NOTE | 2024-02-23 10:53 | W.PN.CD ---
Today's Communication / Plan
-
-Continue antibiotics as directed by primary team
-continue current dosing of diuretic
Impression / Plan
-
Acute hypoxic respiratory failure:
-patient being treated for aspiration PNA. She also has restrictive/obstructive lung disease and pulmonary is following. In addition she is and placed on IV Lasix to treat possible component of acute on chronic heart failure. Patient comfortable
currently still with some rhonchi on exam.
-Continue antibiotics as directed by primary team
-continue current dosing of diuretic
[place] HFpEF:
-Increase IV diuresis and monitor- this requires intensive monitoring
-echo this admit as below
-hypokalemia is noted and being replaced- follow closely.
CAD s/p CABG:
-continue ASA, statin
Hx CVA:
-neuro on case
-continue ASA, statin
Physical Exam
Vital Signs/Labs
Vital Signs
Temp Pulse Resp BP Pulse Ox
98.1 F 68 20 124/54 93
02/23/24 07:20 02/23/24 08:31 02/23/24 07:37 02/23/24 08:31 02/23/24 07:37
02/22/24 02/23/24 02/24/24
06:59 06:59 06:59
Actual Weight 80.694 kg 81.465 kg
02/23/24 04:54
02/23/24 04:54
Magnesium 2.0 mg/dl (1.6-2.3) 02/22/24 04:12
02/16/24 02/22/24
12: 04:12
Ngf-A-Pxijxjmyzpk Pept [id number]
Physical Exam
EENT: Anicteric
Cardiovascular: Rhythm & rate is regular
Respiratory: Wheeze Present and Rhonchi Present
GI: Soft and Non tender
Neuro/Psych: Alert
Data Reviewed
-
Date of Service: February 23, 2024
Medical Decision Making: Reviewed Test Results
Medical Tests (PFT, Pathology etc): Report Reviewed by me
Labs: Labs Reviewed by me
[2024-02-23] MEDS: REFRESH EYE DROPS (PF) 1 DROPS BOTH EYES (11:01)
[2024-02-23] MEDS: UNASYN IV ×2 (11:01→21:57)
[2024-02-23] MEDS: TYLENOL 650 MG PO ×2 (11:49→16:35)
[2024-02-23 12:08] LABS: Glucose - Point of Care 212 mg/dl (70-99)
[2024-02-23] MEDS: NOVOLOG FLEXPEN-LOW RESISTANCE 2 UNITS SC (12:16)
--- NOTE | 2024-02-23 12:30 | W.PN.PUL3 ---
Today's Communication / Plan
-
Remains on 12L, no significant progress
Sputum neg, can likely stop abx
Ongoing diuresis per team
Consider RHC if not improving
Assessment
-
Patient is an 78-year-old female with history of untreated suspected YELITZA/OHS, obesity, dementia, sedentary lifestyle, Chronic HFpEF presenting from [facility] with SOB/cough and hypoxemia, reportedly pulse ox in the low 80s at facility.� She
was given DuoNeb via nonrebreather by EMS with pulse ox improving into the upper 90s.� On arrival to ER, ABG with compensated CO2 retention pH 7.38/74. She is placed on BIPAP and admitted to IMU.
Acute hypoxic respiratory failure
Baseline use of 2L, placed on 8L midflow in ER
Chronic compensated hypercarbic respiratory failure, on BIPAP
Recent admission /01/21 for heart failure exacerbation
Hyponatremia
Hypochloremic metabolic alkalosis
Hyperglycemia
Subacute HFpEF, proBNP 2480
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
Acute hypoxic respiratory insufficiency, admitted 03/27/20
Positive Covid, 03/27/20
Restrictive lung disease/obstructive lung disease
Lifelong nonsmoker
Spirometry-FEV1 850 mL (40%), FVC 42%, 8% BD response
DuoNeb/Pulmicort in outpx
Peripheral Eosinophilia in the past
CAD with h/o CABG 12/2017
Hypertension
Hyperlipidemia
Diabetes-type 2
Chronic renal insufficiency-serum creatinine 1.2-1.4
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
Dysphagia, aspiration risk
Obesity
Suspected sleep disorder breathing
History of mentally challenged
Sedentary lifestyle
Depression
Reflux
Anxiety
Cognitive dysfunction/dementia
DNR
Plan
Respiratory status worsening, now on 12L NC, wean as tolerated
She had previously been weaned to 2L at last admission
ABG reviewed wtih chronic compensation but worsened overall, BIPAP now
Continue BiPAP through night and PRN
Follow VBG as needed
DuoNebs as needed
No indication for steroids at this time
CT Head noted, new right centrum semiovale and left frontal lobe CVAs
Neuro following
Aspiration precautions
Speech eval in past 2018- Patient judged to be at elevated risk for aspiration given impulsivity, reduced breathing/swallowing coordination, respiratory compromise requiring supplemental O2, prior hx of dysphagia.�
Recommend cautious intake of DYS I/NTL w/ strict aspiration precautions, meds whole/crushed w/ applesauce and supervision w/ intake d/t impulsivity.
Previous VSE reviewed with signs of aspiration
Report showed deep penetration of nectar thick liquids via cup and mary aspiration of pureed consistencies.
Repeat video swallow ordered by Dr. Gabriel--showing mild-mod risk
History of PEG placement, which was reversed
Speech following with continued PO diet
Repeat sputum culture 02/22/24, usual sydnee
Continue diuresis as tolerated
Monitor renal function, electrolytes, intake/output, lower extremity edema and weight
Continue to replace electrolytes as needed
Repeat CXR showing worsening congestion
IV lasix ongoing
Cards eval
Risk factors assessed for underlying sleep disordered breathing also noted, recommend outpatient PSG/sleep evaluation
Suspect YELITZA/OHS
ABG indicating compensated chronic CO2 retention
Unsure if her baseline cognition will limit PAP use
The patient has been seen in our office (last visit 2019) and instructed to have sleep study that she never followed up with.
She does not recall this discussion.
Weight loss measures recommended
Obesity contributing to respiratory symptoms
DVT prophylaxis-on subcu heparin
GI prophylaxis-on famotidine
Nutrition
Early mobilization/physical therapy
Reviewed with nursing as well as Dr. Gabriel
Suspected YELITZA/obesity hypoventilation syndrome
Outpatient pulmonary/sleep disorders follow-up recommended-last seen in the office 2019 and never followed up
Overall GOC may need to be discussed in a patient with dementia and chronic mod-severe conditions
Diagnostic Data
CXR 02/19/24- Overall slight improvement in lung volumes. Persistent mild interstitial edema. Cardiomegaly.
02/16/24- Mild pulmonary edema
CXR 12/26/23- Moderate interstitial pulmonary edema.
Chest X-Ray: 08/26/23- faint R basilar infiltrate. Sternotomy wiring
CXR 08/16/21- No active cardiopulmonary disease. Stable postoperative changes. Stable perihilar interstitial scarring extending into the mid portions of both lungs.
CT Head 02/20/24: 1. Foci of hypoattenuation within the right centrum semiovale and left frontal lobe, unchanged compared to most recent CT dated 02/19/2024, however new compared to a prior study dated 11/13/2012. Foci are suspicious for infarction,
consider MRI for further characterization.
2. Cerebral atrophy, mild small vessel ischemic change.
3. Mild paranasal sinus change.
CT Scan: CHEST 08/27/23- LUNGS: There is a consolidative airspace opacity with air bronchograms in the right lower lobe that is suspicious for pneumonia. Trace right pleural fluid is present. There is no pneumothorax. Overall evaluation of the lung
parenchyma is somewhat limited by respiratory motion artifact. The trachea and central airways are patent.
11/24/19 Chest - 1. � Very limited study of the pulmonary arteries. No central pulmonary embolism. Beyond the central pulmonary arteries, the interlobar, segmental and subsegmental arteries are not evaluable.
2. � Severe generalized bronchial disease. In the right lower lobe, near occlusion of the segmental and subsegmental bronchi likely from bronchitis and underlying bronchomalacia.
3. � Multisegment right lower lobe partial collapse and consolidation.
4. � Elsewhere, hypoventilation, linear scarring or atelectasis. No sign of congestive heart failure.
5. � Mild cardiac dilation. Severe atherosclerosis post CABG.
Echo: 08/29/23- Normal biventricular size and systolic function without regional wall motion abnormality. Estimated LVEF 60-65%.�Stage II diastolic dysfunction suggestive of abnormal relaxation and increased�filling pressures.
Moderate mitral stenosis. Mean gradient is 7-8mmHg. Mild to moderate mitral�regurgitation.�Aortic sclerosis without stenosis.�Moderate tricuspid regurgitation. Mildly elevated PASP. Estimated pulmonary�artery pressure of 44 mmHg. Assuming a right
atrial pressure of 8 mmHg.�Compared to 01/18/18: moderate MS and TR are now present. PASP has increased�from 30 mmHg to 44 mmHg.
�
PFT's: Kenji 01/02/18- FEV1 0.85L 48%, FVC 1.0L 42%, ratio 85. Post FEV1 0.92L 52%, no BD response (mixed pattern, mod-severely reduced)
Prior ECHO-stage II DD, moderate MS, moderate PH
Noted h/o CAD s/p CABG Dec 2017
Holter 2020 CONCLUSION: Sinus, average 71 BPM.� Range 41�111 T-pin.� Very rare ectopy.� Flynn noted
Video Swallow Examination: Patient presents with�at least mild-moderate oral and mild pharyngeal stage of swallowing.� No aspiration occurred - but risk may be elevated given current respiratory status (i.e., need for increased respiratory support,
hx tachypnea).
Recommend: IDDSI Level 4 (puree), IDDSI Level 0 (thin); 2. Medications - in puree; 3. Strategies:�full�supervision with PO intake, upright to 90 degrees,�small SINGLE sips/bites,�slow rate, breaks for breathing, monitor respiratory status closely
with�PO only when RR <30 and SpO2 > 90%, reflux precautions
Subjective Data
-
Date of Service:
Date of Service: February 23, 2024
Chief Complaint: Pulmonary Follow Up and Dyspnea Follow Up
Subjective:
no new complaints
at baseline confusion
remains on 12L
Objective Data
Data Reviewed
Vital Signs / I&O / Oxygen:
Vital Signs
Temp Pulse Resp BP Pulse Ox
98.3 F 78 20 144/47 99
02/23/24 11:15 02/23/24 11:15 02/23/24 11:15 02/23/24 11:15 02/23/24 12:18
Intake and Output
02/22/24 02/23/24 02/24/24
06:59 06:59 06:59
Intake Total 1150 / 1150 1620 / 1620
Output Total 300 / 300 250 / 250
Balance 850 / 850 1370 / 1370
SaO2 99
Nasal Cannula flow liters per 12
minute
Physical Exam
General: Respiratory Distress (n), Comfortable and Other (NAD)
HEENT: Normocephalic, Anicteric and Moist Mucous Membranes
Cardiovascular: Regular Rhythm
Respiratory: Wheeze (Few expiratory), Crackles (Basilar), Rhonchi (Expiratory), Non-Labored Respirations, Accessory Resp Muscle Use (n) and Stridor (n)
GI: Soft, Non Distended and Non Tender
Neurology: Awake, Alert and No Motor Deficits
Skin: Warm, Good Color, Cyanosis (n), Jaundice (n) and Rash (n)
Labs/Micro/Reports
Lab Data
02/23/24 04:54
02/23/24 04:54
Microbiology
02/22/24 12:01 Sputum Respiratory Culture - Preliminary
Usual Respiratory Sydnee
02/22/24 12:01 Sputum Gram Stain - Preliminary
--- NOTE | 2024-02-23 13:51 | HOSPNOTE ---
Spoke with sister and discussed hospice and the philosophy. The plan is to monitor today try to lower oxygen support from 12L and re assess in the am. If patient is stable and the sister chooses hospice then the plan would be for patient to return
to [facility] on hospice services. If the family does not wish for hospice the patient will complete the course of IV antibiotics and return to [facility] when medically stable. Attending and Case management aware of plan. Floor RN updated as well.
[2024-02-23] MEDS: NOVOLOG FLEXPEN-LOW RESISTANCE 1 UNITS SC (16:39)
[2024-02-23 16:43] LABS: Glucose - Point of Care 191 mg/dl (70-99)
--- NOTE | 2024-02-23 16:45 | CM ---
Diuresing, 6L O2. Will return Jon[facility] to resume LTC. Jono ordered Bipap.
[2024-02-23] MEDS: LANTUS 0.200000000000000011 UNITS SC (18:32)
[2024-02-23] MEDS: PEPCID 20 MG PO (19:52)
[2024-02-23] MEDS: LIPITOR 40 MG PO (19:52)
[2024-02-23] MEDS: COLACE PO (19:57)
[2024-02-23] MEDS: SENOKOT PO (19:58)
[2024-02-23 21:54] LABS: Glucose - Point of Care 213 mg/dl (70-99)
[2024-02-24 02:54] VITALS: PULSE 2
[2024-02-24 03:50] VITALS: BP 124/56
[2024-02-24 05:00] LABS: % Basophils 0.6 % (0-2); % Eosinophils 8.9 % (0-6); % Immature Granulocytes 0.5 % (0-0.5); % Lymphocytes 20.5 % (20.5-51.1); % Monocytes 6.9 % (1.7-9.3); % Neutrophils 62.6 % (42.2-75.2); Absolute Basophils 0.1 10^3/uL (0-0.2); Absolute Immature Granulocytes 0.1 10^3/uL (0-0.05); Absolute Lymphocytes 2.2 10^3/uL (1.2-3.4); Absolute Monocytes 0.7 10^3/uL (0.1-0.6); Absolute Neutrophils 6.7 10^3/uL (1.4-6.5); Hematocrit 34.2 % (37.0-47.0); Hemoglobin 10.2 g/dL (12.0-16.0); Mean Corp Hgb Conc. 29.8 g/dL (33.0-37.0); Mean Corpuscular Hgb 24.6 pg (27.0-31.0); Mean Corpuscular Volume 82.6 fL (81.0-99.0); Mean Platelet Volume 10.5 fL (7.4-10.4); Nucleated Red Blood Cells % 0 %; Platelet Count 295 10^3/uL (130-400); Red Blood Cell Count 4.14 10^6/uL (4.20-5.40); Red Cell Dist. Width 17.8 % (11.5-14.5); White Blood Cell Count 10.7 10^3/uL (4.8-10.8)
[2024-02-24 05:27] LABS: Blood Urea Nitrogen 62 mg/dl (7-17); Calcium 9.7 mg/dl (8.4-10.2); Chloride 88 mmol/L (98-107); Estimated Creatinine Clearance 31 ml/min; Glucose 226 mg/dl (70-99); Magnesium 1.9 mg/dl (1.6-2.3); Potassium 4.2 mmol/L (3.5-5.1); Sodium 135 mmol/L (135-145); eGFR 38.03
[2024-02-24 05:40] VITALS: BMI 34.0
[2024-02-24 05:42] LABS: Carbon Dioxide 37 mmol/L (22-30)
[2024-02-24 06:00] VITALS: BMI 34.0
[2024-02-24 07:00] VITALS: BP 136/62
[2024-02-24] MEDS: DUONEB 3 ML INH (07:20)
[2024-02-24 07:52] LABS: Glucose - Point of Care 200 mg/dl (70-99)
--- NOTE | 2024-02-24 08:43 | W.PN.HOSP.TC ---
Today's Communication/Plan
-
Continue current management. Discharge planning today
Assessment / Plan
Assessment / Plan
Physical exam:
General: Acutely ill
HEENT: Normocephalic, Atraumatic and Moist Mucous Membranes
Respiratory: Bilateral coarse rhonchi; Negative Wheezes, no crackles.
Cardiac: Regular Rhythm and S1/S2
GI: Soft, Nontender and Nondistended
Musculoskeletal: Bilateral edema. No Clubbing, No Cyanosis
Neuro: Awake, Alert. Dysarthria present. Left-sided weakness. Ataxia.
Psych: Calm
A/P:
Acute on chronic hypoxic respiratory failure:
-Multifactorial including aspiration pneumonia, CHF, restrictive lung disease and obstructive lung disease
-Continue supplemental oxygen, currently she is on 6 L of oxygen
-Continue diuretics, IV Lasix increased to 80 mg once daily (Wt 81.5 kg today)--> changed to oral diuretics today
-Continue IV antibiotics, Unasyn--> change to oral antibiotics today
-Pulmonary following
-Cardiology consult appreciated
-Waiting for sputum culture
-Hospice care consulted
-Discussed with family
-Updated cardiology and pulmonary about plans for discharge today on hospice care
-Plan to discharge back to facility on hospice care
Ruled out CVA:
-Back on her prior regimen
-MRI brain negative for acute cva
-Continue aspirin and statin
-History of CVA in the past and dysphagia with peg tube removed and passed/she had been on a pur�ed and thin liquid diet at residential. Now npo.
-Neurology following
Dysphagia:
-Speech therapy recommended puree diet since 02/19
Acute on chronic diastolic congestive heart failure:
-IV diuretics, IV Lasix increased to 80 mg once daily--> changed to oral diuretics today
-Monitor strict I/O
-Monitor daily weight, Wt 80.6 kg today
-Monitor renal function and electrolytes
-Reviewed latest echocardiogram on our system
-Continue guideline-directed medical therapy for heart failure (GDMT)
-Fluid restriction
-Salt restriction
-Heart failure education
-Follow up clinical response
Aspiration pneumonia:
-Continue IV antibiotics, Unasyn--> changed to oral antibiotics today
-Obtain sputum culture
CKD stage IIIb:
-Creat 1.4 today appears close to baseline but bumped up today
-Follow BMP
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
-Continue aspirin, statin
Hypertension:
-continue Norvasc, Lasix, avoid hypotension
�Hold all nephrotoxic agents
Diabetes mellitus type 2 on insulin:
-cont insulin with ISS
HLD:
-Continue atorvastatin 40 mg at bedtime
Anxiety:
-Continue clonazepam hold for sedation
-Sertraline
Gout:
-allopurinol, colchicine continued
GERD:
-PPI continued
COVID-19 infection 2019
DVT prophylaxis -Heparin subcu
DNR
Anticipated Discharge: Today
Subjective/Interval History
-
Date of Service: February 24, 2024
Patient seen and examined.
Objective Data
-
Labs:
Laboratory Results
02/24/24
04:43
WBC 10.7
Hgb 10.2 L
Hct 34.2 L
Plt Count 295
Sodium 135
Potassium 4.2
Chloride 88 L
Carbon Dioxide 37 H
BUN 62 H
Creatinine 1.4 H
Glucose 226 H
Calcium 9.7
Vital Signs:
Vital Signs
Temp Pulse Resp BP Pulse Ox
98.1 F 82 16 136/62 93
02/24/24 07:00 02/24/24 07:24 02/24/24 07:24 02/24/24 07:00 02/24/24 07:24
I&O
02/23/24 02/24/24 02/25/24
06:59 06:59 06:59
Intake Total 1620 / 1620 1939
Output Total 250 / 250
Balance 1370 / 1370 1939
[2024-02-24] MEDS: NORVASC 10 MG PO (09:51)
[2024-02-24] MEDS: ASPIRIN ENTERIC COATED 325 MG PO (09:51)
[2024-02-24] MEDS: COLACE 100 MG PO (09:51)
[2024-02-24] MEDS: ZOLOFT 25 MG PO (09:51)
[2024-02-24] MEDS: KLONOPIN 0.5 MG PO (09:52)
[2024-02-24] MEDS: MAG-TAB SR 84 MG PO (09:52)
[2024-02-24] MEDS: SENOKOT 8.59999999999999964 MG PO (09:52)
[2024-02-24] MEDS: MUCINEX 600 MG PO (09:52)
[2024-02-24] MEDS: VITAMIN D3 (cholecalciferol) 25 MCG PO (09:53)
[2024-02-24] MEDS: HEPARIN 5000 UNITS SC (09:53)
[2024-02-24] MEDS: LASIX 80 MG IV (09:55)
[2024-02-24] MEDS: LIDOCAINE 4% PATCH 1 PATCH TOPICAL (10:05)
[2024-02-24] MEDS: DESENEX/MITRAZOL/ZEASORB 1 APPLIC TOPICAL (10:05)
[2024-02-24] MEDS: ZYLOPRIM 300 MG PO (10:06)
[2024-02-24] MEDS: UNASYN IV (10:06)
[2024-02-24] MEDS: NOVOLOG FLEXPEN-LOW RESISTANCE 2 UNITS SC ×2 (10:07→12:54)
[2024-02-24] MEDS: TYLENOL 650 MG PO (10:09)
[2024-02-24] MEDS: METAMUCIL, KONSYL PO (10:10)
--- NOTE | 2024-02-24 10:48 | W.PN.CD ---
Today's Communication / Plan
-
continue tx of issues directed by pulmonary . Patimt has been on diuretic with downward trend of proBNP. Monitor creatinine . if continues to rise will need to back off
Impression / Plan
-
Acute hypoxic respiratory failure:
-patient being treated for aspiration PNA. She also has restrictive/obstructive lung disease and pulmonary is following. In addition she is and placed on IV Lasix to treat possible component of acute on chronic heart failure. significant O2
requiremtn. coughing and rhonchi on exam.
- continue tx of issues directed by pulmonary . Patimt has been on diuretic with downward trend of proBNP. Monitor creatinine . if continues to rise will need to back off
-Continue antibiotics as directed by primary team
-continue current dosing of diuretic
Whnyp-iz-zjhaccm HFpEF:
-diuretics as above
-echo this admit as below
CAD s/p CABG:
-continue ASA, statin
Hx CVA:
-neuro on case
-continue ASA, statin
Physical Exam
Vital Signs/Labs
Vital Signs
Temp Pulse Resp BP Pulse Ox
98.1 F 65 16 136/62 93
02/24/24 07:00 02/24/24 09:51 02/24/24 07:24 02/24/24 09:51 02/24/24 07:24
02/23/24 02/24/24 02/25/24
06:59 06:59 06:59
Actual Weight 81.465 kg 81.556 kg
02/24/24 04:43
02/24/24 04:43
Magnesium 1.9 mg/dl (1.6-2.3) 02/24/24 04:43
02/16/24 02/22/24
12:24 04:12
Eta-X-Bocwllypsiz Pept [id number]
Physical Exam
Cardiovascular: Rhythm & rate is regular
Respiratory: Other (coughing with inspiration, rhonchi)
GI: Soft and Non tender
Data Reviewed
-
Date of Service: February 24, 2024
Medical Tests (PFT, Pathology etc): Report Reviewed by me
Labs: Labs Reviewed by me
[2024-02-24 11:00] VITALS: BP 134/57
--- NOTE | 2024-02-24 11:01 | HOSPNOTE ---
Spoke with attending and case management. The plan is for patient to return to [place] today on hospice. I called the sister Flavia and she is in agreement. The plan is for patient to return to [place] oxygen was ordered and will be delivered today.
Once patient is at [place] our nurse will sign patient onto hospice services. Transport is needed and OOH DNR needed.
[2024-02-24 11:37] LABS: Glucose - Point of Care 236 mg/dl (70-99)
--- NOTE | 2024-02-24 11:45 | CM ---
Patient has been cleared for discharge back to [facility] for resumption of LTC. hospice will follow patient and sign her onto hospice when she arrives at [place]. Sister in agreement with discharge plan of care. Transport has been
scheduled for 2:30PM on this date.
NURSE TO NURSE REPORT # [phone]
FAX # [phone]
--- NOTE | 2024-02-24 12:11 | W.PN.PUL3 ---
Today's Communication / Plan
-
Agree with decision making, difficult situation with numerous severe conditions/not improving
Family has decided on hospice, discharge planning per team
We will sign off at this time, please call with questions
Assessment
-
Patient is an 78-year-old female with history of untreated suspected YELITZA/OHS, obesity, dementia, sedentary lifestyle, Chronic HFpEF presenting from [facility] with SOB/cough and hypoxemia, reportedly pulse ox in the low 80s at facility.� She
was given DuoNeb via nonrebreather by EMS with pulse ox improving into the upper 90s.� On arrival to ER, ABG with compensated CO2 retention pH 7.38/74. She is placed on BIPAP and admitted to IMU.
Acute hypoxic respiratory failure
Baseline use of 2L, placed on 8L midflow in ER
Chronic compensated hypercarbic respiratory failure, on BIPAP
Recent admission /01/21 for heart failure exacerbation
Hyponatremia
Hypochloremic metabolic alkalosis
Hyperglycemia
Subacute HFpEF, proBNP 2480
Conditions present [employer]:
Acute hypoxic respiratory insufficiency, admitted 03/27/20
Positive Covid, 03/27/20
Restrictive lung disease/obstructive lung disease
Lifelong nonsmoker
Spirometry-FEV1 850 mL (40%), FVC 42%, 8% BD response
DuoNeb/Pulmicort in outpx
Peripheral Eosinophilia in the past
CAD with h/o CABG 12/2017
Hypertension
Hyperlipidemia
Diabetes-type 2
Chronic renal insufficiency-serum creatinine 1.2-1.4
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
Dysphagia, aspiration risk
Obesity
Suspected sleep disorder breathing
History of mentally challenged
Sedentary lifestyle
Depression
Reflux
Anxiety
Cognitive dysfunction/dementia
DNR
Plan
Respiratory status worsening, now on 12L NC, wean as tolerated
She had previously been weaned to 2L at last admission
[facility]G [facility] chronic compensation but worsened overall, BIPAP now
Continue BiPAP through night and PRN
Follow VBG as needed
DuoNebs as needed
No indication for steroids at this time
CT Head noted, new right centrum semiovale and left frontal lobe CVAs
Neuro following
Aspiration precautions
Speech eval in past 2018- Patient judged to be at elevated risk for aspiration given impulsivity, reduced breathing/swallowing coordination, respiratory compromise requiring supplemental O2, prior hx of dysphagia.�
Recommend cautious intake of DYS I/NTL w/ strict aspiration precautions, meds whole/crushed w/ applesauce and supervision w/ intake d/t impulsivity.
Previous VSE reviewed with signs of aspiration
Report showed deep penetration of nectar thick liquids via cup and mary aspiration of pureed consistencies.
Repeat video swallow ordered by Dr. Gabriel--showing mild-mod risk
History of PEG placement, which was reversed
Speech following with continued PO diet
Repeat sputum culture 02/22/24, usual sydnee
Continue diuresis as tolerated
Monitor renal function, electrolytes, intake/output, lower extremity edema and weight
Continue to replace electrolytes as needed
Repeat CXR showing worsening congestion
IV lasix ongoing
Cards following
Risk factors assessed for underlying sleep disordered breathing also noted, recommend outpatient PSG/sleep evaluation
Suspect YELITZA/OHS
ABG indicating compensated chronic CO2 retention
Unsure if her baseline cognition will limit PAP use
The patient has been seen in our office (last visit 2019) and instructed to have sleep study that she never followed up with.
She does not recall this discussion.
Weight loss measures recommended
Obesity contributing to respiratory symptoms
DVT prophylaxis-on subcu heparin
GI prophylaxis-on famotidine
Nutrition
Early mobilization/physical therapy
Reviewed with nursing as well as Dr. Gabriel
Suspected YELITZA/obesity hypoventilation syndrome
Outpatient pulmonary/sleep disorders follow-up recommended-last seen in the office 2019 and never followed up
Overall GOC may need to be discussed in a patient with dementia and chronic mod-severe conditions
Family has decided on hospice
Diagnostic Data
CXR 02/19/24- Overall slight improvement in lung volumes. Persistent mild interstitial edema. Cardiomegaly.
02/16/24- Mild pulmonary edema
CXR 12/26/23- Moderate interstitial pulmonary edema.
Chest X-Ray: 08/26/23- faint R basilar infiltrate. Sternotomy wiring
CXR 08/16/21- No active cardiopulmonary disease. Stable postoperative changes. Stable perihilar interstitial scarring extending into the mid portions of both lungs.
CT Head 02/20/24: 1. Foci of hypoattenuation within the right centrum semiovale and left frontal lobe, unchanged compared to most recent CT dated 02/19/2024, however new compared to a prior study dated 11/13/2012. Foci are suspicious for infarction,
consider MRI for further characterization.
2. Cerebral atrophy, mild small vessel ischemic change.
3. Mild paranasal sinus change.
CT Scan: CHEST 08/27/23- LUNGS: There is a consolidative airspace opacity with air bronchograms in the right lower lobe that is suspicious for pneumonia. Trace right pleural fluid is present. There is no pneumothorax. Overall evaluation of the lung
parenchyma is somewhat limited by respiratory motion artifact. The trachea and central airways are patent.
11/24/19 Chest - 1. � Very limited study of the pulmonary arteries. No central pulmonary embolism. Beyond the central pulmonary arteries, the interlobar, segmental and subsegmental arteries are not evaluable.
2. � Severe generalized bronchial disease. In the right lower lobe, near occlusion of the segmental and subsegmental bronchi likely from bronchitis and underlying bronchomalacia.
3. � Multisegment right lower lobe partial collapse and consolidation.
4. � Elsewhere, hypoventilation, linear scarring or atelectasis. No sign of congestive heart failure.
5. � Mild cardiac dilation. Severe atherosclerosis post CABG.
Echo: 08/29/23- Normal biventricular size and systolic function without regional wall motion abnormality. Estimated LVEF 60-65%.�Stage II diastolic dysfunction suggestive of abnormal relaxation and increased�filling pressures.
Moderate mitral stenosis. Mean gradient is 7-8mmHg. Mild to moderate mitral�regurgitation.�Aortic sclerosis without stenosis.�Moderate tricuspid regurgitation. Mildly elevated PASP. Estimated pulmonary�artery pressure of 44 mmHg. Assuming a right
atrial pressure of 8 mmHg.�Compared to 01/18/18: moderate MS and TR are now present. PASP has increased�from 30 mmHg to 44 mmHg.
�
PFT's: Kenji 01/02/18- FEV1 0.85L 48%, FVC 1.0L 42%, ratio 85. Post FEV1 0.92L 52%, no BD response (mixed pattern, mod-severely reduced)
Prior ECHO-stage II DD, moderate MS, moderate PH
Noted h/o CAD s/p CABG Dec 2017
Holter 2020 CONCLUSION: Sinus, average 71 BPM.� Range 41�111 T-pin.� Very rare ectopy.� Flynn noted
Video Swallow Examination: Patient presents with�at least mild-moderate oral and mild pharyngeal stage of swallowing.� No aspiration occurred - but risk may be elevated given current respiratory status (i.e., need for increased respiratory support,
hx tachypnea).
Recommend: IDDSI Level 4 (puree), IDDSI Level 0 (thin); 2. Medications - in puree; 3. Strategies:�full�supervision with PO intake, upright to 90 degrees,�small SINGLE sips/bites,�slow rate, breaks for breathing, monitor respiratory status closely
with�PO only when RR <30 and SpO2 > 90%, reflux precautions
Subjective Data
-
Date of Service:
Date of Service: February 24, 2024
Chief Complaint: Pulmonary Follow Up and Dyspnea Follow Up
Subjective:
no new events
remains clinically unchanged
Objective Data
Data Reviewed
Vital Signs / I&O / Oxygen:
Vital Signs
Temp Pulse Resp BP Pulse Ox
98.2 F 78 24 134/57 96
02/24/24 11:00 02/24/24 11:00 02/24/24 11:00 02/24/24 11:00 03/29/24 11:20
Intake and Output
02/23/24 02/24/24 02/25/24
06:59 06:59 06:59
Intake Total 1620 / 1620 1939 240 / 240
Output Total 250 / 250
Balance 1370 / 1370 1939 240 / 240
SaO2 96
Nasal Cannula flow liters per 6
minute
Physical Exam
General: Respiratory Distress (n), Comfortable and Other (NAD)
HEENT: Normocephalic, Anicteric and Moist Mucous Membranes
Cardiovascular: Regular Rhythm
Respiratory: Wheeze (Few expiratory), Crackles (Basilar), Rhonchi (Expiratory), Non-Labored Respirations, Accessory Resp Muscle Use (n) and Stridor (n)
GI: Soft, Non Distended and Non Tender
Neurology: Awake, Alert and No Motor Deficits
Skin: Warm, Good Color, Cyanosis (n), Jaundice (n) and Rash (n)
Labs/Micro/Reports
Lab Data
02/24/24 04:43
02/24/24 04:43
Microbiology
02/22/24 12:01 Sputum Respiratory Culture - Final
Usual Respiratory Sydnee
02/22/24 12:01 Sputum Gram Stain - Final
--- NOTE | 2024-02-24 12:18 | W.DCSUMMARY ---
Discharge Summary
Discharge Data
Date of Admission: 02/16/24
Date of Discharge: 02/24/24
-
Pending Results: No
Hospital Course
Patient 78 years old female with history of cognitive impairment, CHF, CKD, CAD, CVA, valvulopathy, pacemaker, presented to the hospital with hypoxia. She felt to have aspiration pneumonia and congestive heart failure primarily leading her hypoxia.
She was given broad-spectrum IV antibiotics and she was also diuresed aggressively with IV diuretics. Pulmonary and cardiology were consulted. They followed along her hospital stay. There were also some concerns about strokelike symptoms and
neurology consulted. She had a CT of the head that showed some abnormality concerning for stroke but she underwent an MRI of the brain and that ruled out any acute stroke. Despite best treatment, she continued to be hypoxic and continues to
require high amounts of oxygen although overall she was able to have some modest improvement and tolerate about 6 L of oxygen close to discharge. Overall her prognosis remained guarded so we had hospice evaluate the patient. Patient and family
have agreed to change goals of care to hospice care at this point. I was able to inform cardiology and pulmonary about change in goals of care. Patient will be discharged back to [place] into hospice care. No other events were noticed.
Discharge duration: 37 minutes
Discharge Plan
-
Patient Disposition: Hospice - Inpatient
Discharge Diagnosis/Procedures: Acute on chronic hypoxic respiratory failure. Dysphagia. Acute on chronic diastolic congestive heart failure. Aspiration pneumonia. Chronic kidney disease stage III.
Diet: Regular
Activity: As tolerated
Referrals:
Samir River MD [Family Provider] - in less than 1 week
Prescriptions:
Continued
Artificial Tears (PF) 1 EACH dropperette
1 drp BOTH EYES Q8HPRN PRN (Reason: dry eyes)
lidocaine 4 % Adhesive Patch,Medicated
1 patch TOPICAL DAILY
Rx Instructions:
apply to lower back
magnesium hydroxide [Milk of Magnesia] 400 mg/5 mL Suspension
30 ml PO HSPRN PRN (Reason: if no bm x 2 days)
bisacodyl [Dulcolax (bisacodyl)] 10 mg Suppository
10 mg DE [id number] PRN (Reason: if no bm by 3rd day)
Fleet Enema 19-7 gram/118 mL Enema
118 ml DE DAILYPRN PRN (Reason: if no bm x 4 days)
clonazepam 0.5 MG tablet
0.5 mg PO BID
atorvastatin 40 mg Tablet
40 mg PO HS
sennosides [senna] 8.6 mg Tablet
8.6 mg PO BID
aspirin 81 mg Tablet,Delayed Release (Dr/Ec)
81 mg PO DAILY
amlodipine 10 mg Tablet
10 mg PO DAILY
docusate sodium 100 mg Capsule
100 mg PO BID
sertraline 25 mg Tablet
25 mg PO DAILY
cholecalciferol (vitamin D3) [Vitamin D3] 25 mcg (1,000 unit) Tablet
25 mcg PO DAILY
famotidine [Acid Controller] 20 MG tablet
20 mg PO HS
acetaminophen [Tylenol] 325 MG capsule
650 mg PO Q6HPRN PRN (Reason: mild pain/fever >100)
menthol Gel
1 applic TOPICAL HS
allopurinol 300 MG tablet
300 mg PO DAILY
psyllium Packet
1 packet PO DAILY
insulin glargine [Lantus Solostar U-100 Insulin] 100 unit/mL (3 mL) insulin pen
35 unit SC QPM Qty: 15 0RF
ipratropium-albuterol 0.5 mg-3 mg(2.5 mg base)/3 mL Solution For Nebulization
3 ml INHALATION R BID
insulin lispro [Humalog U-100 Insulin] 100 unit/mL Solution
0 sliding scale dose SC AC
Rx Instructions:
151-200=2units, 201-250=4units, 251-300=6units, 301-350=8units
Balmex Adult Care 11.3 % Cream
1 applic TOPICAL BID
miconazole nitrate [Miconazorb AF] 2 % powder
1 applic topical BIDPRN PRN (Reason: b/l groin)
furosemide 80 mg tablet
80 mg PO DAILY
potassium chloride 20 mEq tablet,ER particles/crystals
20 meq PO BID
Discharge Orders:
Discharge Patient (As Directed); Ordered 02/24/24
Ordered By: Issa Lora
Discharge Date and Time
Discharge Date/Time: 02/24/24 15:01
Print Language: TRINIDADIAN
[2024-02-24] MEDS: AUGMENTIN 875 MG/125 MG 1 TABLET PO (12:55)
[2024-02-24 14:27] VITALS: BP 130/49
== END 2024-02-24 15:01 | disposition hospice, inpatient (51) | DRG 177 ==
LOC: 2 NORTH 15:09
PROVIDERS: Clinical Nurse Specialist Family Health; Physician Assistant Medical; ADMITTING PHYSICIAN Internal Medicine; ATTENDING PHYSICIAN Hospitalist; CONSULT PHYSICIAN Internal Medicine; CONSULT PHYSICIAN Psychiatry & Neurology Neurology; EMERGENCY PHYSICIAN Emergency Medicine; FAMILY PHYSICIAN Family Medicine; OTHER PHYSICIAN Internal Medicine
DX: J69.0 Pneumonitis due to inhalation of food and vomit (principal); I50.33 Acute on chronic diastolic (congestive) heart failure; J96.21 Acute and chronic respiratory failure with hypoxia; I13.0 Hypertensive heart and chronic kidney disease with heart failure and stage 1 through stage 4 chronic kidney disease, or unspecified chronic kidney disease; F03.94 Unspecified dementia, unspecified severity, with anxiety; E87.3 Alkalosis; Z11.52 Encounter for screening for COVID-19; J44.89 Other specified chronic obstructive pulmonary disease; Z66 Do not resuscitate; N18.32 Chronic kidney disease, stage 3b; E11.22 Type 2 diabetes mellitus with diabetic chronic kidney disease; D63.8 Anemia in other chronic diseases classified elsewhere; Z79.82 Long term (current) use of aspirin; M10.9 Gout, unspecified; K21.9 Gastro-esophageal reflux disease without esophagitis; E87.6 Hypokalemia; I25.10 Atherosclerotic heart disease of native coronary artery without angina pectoris; Z95.1 Presence of aortocoronary bypass graft
CPT/HCPCS: 36415; 70450; 70544; 70548; 70551; 71045; 74230; 80048; 80053; 80202; 82805; 82947; 82962; 83036; 83735; 83880; 85025; 87070; 87205; 87641; 87811; 92526; 92610; 92611; 93005; 93306; 94640; 94660; 96374; 96375; 97162; 97166; 99291; A9585